=== PATIENT | male | born 1935 | race Caucasian/White ===

== ENCOUNTER 2020-04-29 11:12 | Outpatient (CLI) | payer OTHER, SELFPAY ==
--- NOTE | 2020-04-29 11:21 | XRR_ITS ---
PROCEDURE INFORMATION: Exam: XR Ribs, Bilateral Exam date and time: 04/29/2020 11:22 AM Age: 85 years old Clinical indication: Pain and injury or trauma; Fall; Initial encounter; Rib area, bilateral; Blunt trauma; Other: Rib pain; Injury date: 04/27/20 TECHNIQUE: Imaging protocol: XR of the bilateral ribs. Views: 3 views. COMPARISON: No relevant prior studies available. FINDINGS: Bones/joints: There are old, healed rib fractures bilaterally, but no acute rib fracture is identified. Lungs: No lung contusion. Pleural space: No pneumothorax, hemothorax, or pleural effusion. Heart/Mediastinum: The cardiac silhouette is not enlarged. The mediastinal contours are normal. Soft tissues: No acute soft tissue abnormality. XR/XR ribs 3V* [id number] IMPRESSION: No acute abnormality.
== END 2020-04-29 11:13 | disposition home or self-care (01) ==
LOC: RAD 11:16
PROVIDERS: PCP Nurse Practitioner Family; Visit Provider Nurse Practitioner Family
DX: S20.212A Contusion of left front wall of thorax, initial encounter (principal); S20.211A Contusion of right front wall of thorax, initial encounter; X58.XXXA Exposure to other specified factors, initial encounter; R07.81 Pleurodynia
CPT/HCPCS: 71110

== ENCOUNTER 2021-06-18 19:43 | Observation (INO) | payer MEDICARE, SELFPAY ==
[2021-06-18 19:44] VITALS: BP 141/77; PULSE 89; RESP 20; TEMP 37.7; O2SAT 93; BMI 24.3
[2021-06-18 20:10] VITALS: BP 137/67; PULSE 89; RESP 22
--- NOTE | 2021-06-18 20:38 | ECG_ITS ---
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 Measurements Intervals [place] Rate: 80 P: 52 LA: 140 QRS: 37 QRSD: 77 T: 30 QT: 403 QTc: 468 Interpretive Statements SINUS RHYTHM INTERPRETATION BASED ON A DEFAULT AGE OF 40 YEARS No previous ECG available for comparison Electronically Signed On 08-04-2021 17:27:58 CDT by Giulia Oliva M.D. [id number]
--- NOTE | 2021-06-18 20:38 | XRR_ITS ---
PROCEDURE INFORMATION: Exam: XR Chest Exam date and time: 06/18/2021 8:38 PM Age: 86 years old Clinical indication: Cough and shortness of breath TECHNIQUE: Imaging protocol: XR of the chest. Views: 1 view. COMPARISON: CR XR ribs BI 3V* [id number] 04/29/2020 11:33 AM FINDINGS: Lungs: Hyperinflated lungs. No consolidation. Pleural spaces: Unremarkable. No pleural effusion. No pneumothorax. Heart/Mediastinum: Unremarkable. No cardiomegaly. Bones/joints: Unremarkable. XR/XR chest 1V portable [id number] IMPRESSION: Hyperinflated lungs. No consolidation.
--- NOTE | 2021-06-18 20:39 | W.ED.WEAKNES ---
Documented by User: David Burks MD 06/18/21 22:02 HPI - Weakness General: Chief complaint: Weakness Stated complaint: GENERALIZED WEAKNESS/FALL Time Seen by Provider: 06/18/21 19:51 History of Present Illness: HPI Narrative: This patient is an 86-year-old male who presents to the emergency department with complaint of weakness and fatigue. Patient's was recently diagnosed with COVID-19. Patient's had increased weakness and fatigue over the past couple days. Patient denies any significant shortness of breath or cough or congestion. Denies fever. Will do medical evaluation treat as needed Complaint: generalized weakness Onset (ago): week(s) Duration: constant Location: generalized Severity: moderate Associated symptoms: Denies chest pain, chills, dysuria, fever(s), headache(s), nausea or vomiting Review of Systems General: Reports: 10 or more systems reviewed and unremarkable except in HPI and below Const: Reports: body aches and fatigue; Denies: fever(s) or chills Eyes: Denies: change in vision or blurry vision ENMT: Denies: throat pain, hoarseness or mouth pain Card: Denies: chest pain, palpitations, irregular heart rhythm, edema, swelling of feet/ankles or lightheadedness Resp: Denies: dyspnea, productive cough, non-productive cough, wheezing or pain on inspiration GI: Denies: abdominal pain, nausea or vomiting : Denies: flank pain, dysuria, urinary frequency, urinary urgency or urinary hesitancy Musc: Denies: neck pain, back pain, extremity pain, extremity swelling, joint pain, joint swelling, joint redness, joint warmth or limited range of motion Skin/Breast: Denies: rash, pruritus, erythema or skin tenderness Neuro: Denies: headache(s), numbness in extremities or weakness in extremities Psych: Denies: anxiety or depression Physical Exam Const: COMMON NORMALS: no acute distress, average body habitus, patient oriented x3, no limitations, healthy appearing, alert and well nourished HENMT: COMMON NORMALS: normocephalic, atraumatic, hearing grossly normal bilaterally, external ears normal, EAC's normal, TM's normal bilaterally, Normal external nose present, Normal nasal mucous membranes and turbinates present, moist oral mucous membranes, oropharynx normal, dentition normal and gingiva normal HEAD & SCALP: normocephalic and atraumatic NOSE: Normal external nose present and Normal nasal mucous membranes and turbinates present EXTERNAL EAR: Yes external ears normal EXTERNAL AUDITORY CANAL: EAC's normal TYMPANIC MEMBRANE: TM's normal bilaterally Neck/C-Spine: COMMON NORMALS: full ROM, no lymphadenopathy, supple, no meningeal signs, no JVD, Thyroid normal and No carotid bruits THYROID: Thyroid normal Chest: COMMONS NORMALS: normal inspection of the chest, normal palpation of entire chest wall, normal inspection of the breasts and normal palpation of the breasts Breast/axilla inspection: Yes normal inspection of the breasts BREAST/AXILLA PALPATION: Yes normal palpation of the breasts Resp: COMMON NORMALS: normal respiratory effort, No retractions, No use of accessory muscles, clear to auscultation bilaterally and percussion normal AUSCULTATION: clear to auscultation bilaterally PERCUSSION: percussion normal Cardio: COMMON NORMALS: no JVD, regular rate, regular rhythm, S1 normal heart sound present, S2 normal heart sound present, No gallops present (Cardio), No clicks present (Cardio), No murmurs present (Cardio), No rub (Cardio) and Peripheral pulses 2+ throughout RATE: regular rate RHYTHM: regular rhythm HEART SOUNDS: S1 normal heart sound present and S2 normal heart sound present PERIPHERAL PULSES: Peripheral pulses 2+ throughout GI: COMMON NORMALS: Normal to inspection, nondistended, normoactive bowel sounds present, Soft to palpation, non-tender, No hepatosplenomegaly present, no masses and no bruits PALPATION: Yes Soft to palpation and Yes No hepatosplenomegaly present : COMMON NORMALS: Yes no CVA tenderness BLADDER/KIDNEY EXAM: Yes no CVA tenderness Back/Pelvis: COMMON NORMALS: no CVA tenderness, thoracic and lumbar spine normal to inspection, no thoracic nor lumbar tenderness, thoraco-lumbar ROM normal and straight leg raise negative bilaterally Extremity: COMMON NORMALS: normal to inspection, full ROM, capillary refill normal, no joint enlargement, no clubbing, cyanosis or edema, no calf tenderness and no pedal edema Neuro: COMMON NORMALS: patient oriented x3 SENSORIUM/ORIENTATION: Yes alert MENINGEAL SIGNS: Yes no meningeal signs Course Vital Signs: Vital signs: Vital Signs Temperature 99.8 F H 06/18/21 19:44 Pulse Rate 86 08/19/21 21:25 Respiratory Rate 22 H 06/18/21 21:25 Blood Pressure 174/74 06/18/21 21:25 Pulse Oximetry 93 06/18/21 19:44 MDM - Weakness MDM Narrative: Medical decision making narrative: Patient stable pulse ox. Patient appears to have viral syndrome related to COVID-19. Patient be discharged home with COVID-19 instructions. Patient is to follow-up with primary care physician in 7 to 10 days. Continue with self quarantine. Take medications as instructed Medical Records: Attestation: I reviewed the patient's medical records. Lab Data: Attestation: I reviewed the patient's lab results. Labs: Lab Results 06/18/21 06/18/21 06/18/21 Range/Units 20:28 20:28 20:55 WBC 3.1 L (4.0-10.0) 10^3/ uL RBC 4.36 (4.1-5.3) 10^6/u L Hgb 12.8 (11.7-16.6) g/dL Hct 38.3 L (42.0-52.0) % MCV 87.8 (80-94) fl MCH 29.4 (28.0-34.0) pg MCHC 33.4 (30.0-36.0) g/dL RDW 13.8 (12.1-15.1) % Plt Count 147 (130-400) 10^3/c mm MPV 9.8 (7.4-10.4) fL Neut % (Auto) 49.6 % Lymph % (Auto) 23.9 % [place] % (Auto) 25.2 % Eos % (Auto) 0.3 % Baso % (Auto) 0.3 % Neut # (Auto) 1.52 L (1.8-7.7) 10^3/u L Lymph # (Auto) 0.7 L (0.8-4.8) 10^3/u L [place] # (Auto) 0.8 (0.2-0.9) 10^3/u L Eos # (Auto) 0.0 (0.0-0.8) 10^3/u L Baso # (Auto) 0.0 (0.0-0.1) 10^3/u L Nucleated RBC % (a uto) 0 % Nucleated RBCs # 0.0 /100WBC PT 14.00 (12.1-14.9) SECO NDS INR 1.05 (0.8-1.2) APTT 33.8 (23.9-36.7) SECO NDS D-Dimer 1.43 H (0-0.59) ug/mIFE U Sodium 133 L (136-145) mmol/L Potassium 3.7 (3.5-5.1) mmol/L Chloride 100 (98-107) mmol/L Carbon Dioxide 24 (22-29) mmol/L Anion Gap 12.7 (5-19) BUN 14 (8-23) mg/dL Creatinine 0.8 (0.7-1.2) mg/dL GFR Calculation Not Reportable Glucose 98 (65-115) mg/dL Calculated Osmolal ity 276 L (285-295) mOsm/k g Lactic Acid (0.5-2.2) mmol/L Calcium 8.6 (8.5-10.5) mg/dL Total Bilirubin 0.4 (0.15-1.2) mg/dL AST 18 (0-40) U/L ALT 9 (0-41) U/L Alkaline Phosphata se 94 (40-130) IU/L NT-Pro-B Natriuret Pep 309 (0-450) pg/mL Total Protein 7.0 (6.6-8.7) g/dL Albumin 4.1 (3.5-5.2) g/dL Globulin 2.9 (1.3-4.6) g/dL Urine Color (Yellow) Urine Appearance (CLEAR) Urine pH (5-7) Ur Specific Gravit y (1.005-1.030) Urine Protein (Negative) Urine Glucose (UA) (Normal) Urine Ketones (Negative) Urine Blood (Negative) Urine Nitrate (Negative) Urine Bilirubin (Negative) Urine Urobilinogen (Negative) mg/dL Ur Leukocyte Janny ase (Negative) Urine RBC (0-2) /hpf Urine WBC (0-5) /hpf Ur Squamous Epith Cells (0-5) /hpf Amorphous Sediment /hpf Urine Bacteria (NONE) /hpf Urine Mucus /hpf SARS-CoV-2 Ag (Rap id) (Negative) 06/18/21 06/18/21 06/18/21 Range/Units 20:55 20:55 21:12 WBC (4.0-10.0) 10^3/ uL RBC (4.1-5.3) 10^6/u L Hgb (11.7-16.6) g/dL Hct (42.0-52.0) % MCV (80-94) fl MCH (28.0-34.0) pg MCHC (30.0-36.0) g/dL RDW (12.1-15.1) % Plt Count (130-400) 10^3/c mm MPV (7.4-10.4) fL Neut % (Auto) % Lymph % (Auto) % [place] % (Auto) % Eos % (Auto) % Baso % (Auto) % Neut # (Auto) (1.8-7.7) 10^3/u L Lymph # (Auto) (0.8-4.8) 10^3/u L [place] # (Auto) (0.2-0.9) 10^3/u L Eos # (Auto) (0.0-0.8) 10^3/u L Baso # (Auto) (0.0-0.1) 10^3/u L Nucleated RBC % (a uto) % Nucleated RBCs # /100WBC PT (12.1-14.9) SECO NDS INR (0.8-1.2) APTT (23.9-36.7) SECO NDS D-Dimer (0-0.59) ug/mIFE U Sodium (136-145) mmol/L Potassium (3.5-5.1) mmol/L Chloride (98-107) mmol/L Carbon Dioxide (22-29) mmol/L Anion Gap (5-19) BUN (8-23) mg/dL Creatinine (0.7-1.2) mg/dL GFR Calculation Glucose (65-115) mg/dL Calculated Osmolal ity (285-295) mOsm/k g Lactic Acid 0.8 (0.5-2.2) mmol/L Calcium (8.5-10.5) mg/dL Total Bilirubin (0.15-1.2) mg/dL AST (0-40) U/L ALT (0-41) U/L Alkaline Phosphata se (40-130) IU/L NT-Pro-B Natriuret Pep (0-450) pg/mL Total Protein (6.6-8.7) g/dL Albumin (3.5-5.2) g/dL Globulin (1.3-4.6) g/dL Urine Color Yellow (Yellow) Urine Appearance Clear (CLEAR) Urine pH 5 (5-7) Ur Specific Gravit y 1.020 (1.005-1.030) Urine Protein Trace (Negative) Urine Glucose (UA) Norm (Normal) Urine Ketones Negative (Negative) Urine Blood 2+ H (Negative) Urine Nitrate Negative (Negative) Urine Bilirubin Neg (Negative) Urine Urobilinogen 1 H (Negative) mg/dL Ur Leukocyte Janny ase Negative (Negative) Urine RBC 5-10 H (0-2) /hpf Urine WBC 0-4 H (0-5) /hpf Ur Squamous Epith Cells 5-10 H (0-5) /hpf Amorphous Sediment Trace /hpf Urine Bacteria Trace (NONE) /hpf Urine Mucus 1+ /hpf SARS-CoV-2 Ag (Rap id) Positive H (Negative) Imaging Data^: CXR: Attestation: I personally reviewed and interpreted this imaging study as follows: Radiologist's impression: IMPRESSION: Hyperinflated lungs. No consolidation. EKG Data^: EKG 1: Attestation: I personally reviewed and interpreted this EKG as follows: EKG interpretation date: 06/18/21 EKG interpretation time: 20:49 Prior EKG tracings: not available for review Interpretation: Sinus rhythm heart rate 89 nonspecific EKG changes Discharge Plan Discharge Patient Disposition: Admitted As Inpatient Clinical Impression: COVID-19, Systemic viral illness Condition: Stable Coding Level of Care Code ED [employer] for Chg Fwd Exam Comprehensive Documented by User: Ida Wells MD 06/19/21 00:07 HPI - Weakness General: Chief complaint: Weakness Stated complaint: GENERALIZED WEAKNESS/FALL Time Seen by Provider: 06/18/21 19:51 Course Vital Signs: Vital signs: Vital Signs Temperature 99.8 F H 06/18/21 19:44 Pulse Rate 86 06/18/21 21:25 Respiratory Rate 22 H 06/18/21 21:25 Blood Pressure 174/74 06/18/21 21:25 Pulse Oximetry 93 06/18/21 19:44 MDM - Weakness MDM Narrative: Medical decision making narrative: Patient presents here with COVID-19 along with weakness. Patient's not able to ambulate here he is not stable for discharge at this time as he lives with his elderly . I spoke to hospitalist will lex for observation for his weakness. Lab Data: Labs: Lab Results 06/18/21 06/18/21 06/18/21 Range/Units 20:28 20:28 20:55 WBC 3.1 L (4.0-10.0) 10^3/ uL RBC 4.36 (4.1-5.3) 10^6/u L Hgb 12.8 (11.7-16.6) g/dL Hct 38.3 L (42.0-52.0) % MCV 87.8 (80-94) fl MCH 29.4 (28.0-34.0) pg MCHC 33.4 (30.0-36.0) g/dL RDW 13.8 (12.1-15.1) % Plt Count 147 (130-400) 10^3/c mm MPV 9.8 (7.4-10.4) fL Neut % (Auto) 49.6 % Lymph % (Auto) 23.9 % [place] % (Auto) 25.2 % Eos % (Auto) 0.3 % Baso % (Auto) 0.3 % Neut # (Auto) 1.52 L (1.8-7.7) 10^3/u L Lymph # (Auto) 0.7 L (0.8-4.8) 10^3/u L [place] # (Auto) 0.8 (0.2-0.9) 10^3/u L Eos # (Auto) 0.0 (0.0-0.8) 10^3/u L Baso # (Auto) 0.0 (0.0-0.1) 10^3/u L Nucleated RBC % (a uto) 0 % Nucleated RBCs # 0.0 /100WBC PT 14.00 (12.1-14.9) SECO NDS INR 1.05 (0.8-1.2) APTT 33.8 (23.9-36.7) SECO NDS D-Dimer 1.43 H (0-0.59) ug/mIFE U Sodium 133 L (136-145) mmol/L Potassium 3.7 (3.5-5.1) mmol/L Chloride 100 (98-107) mmol/L Carbon Dioxide 24 (22-29) mmol/L Anion Gap 12.7 (5-19) BUN 14 (8-23) mg/dL Creatinine 0.8 (0.7-1.2) mg/dL GFR Calculation Not Reportable Glucose 98 (65-115) mg/dL Calculated Osmolal ity 276 L (285-295) mOsm/k g Lactic Acid (0.5-2.2) mmol/L Calcium 8.6 (8.5-10.5) mg/dL Total Bilirubin 0.4 (0.15-1.2) mg/dL AST 18 (0-40) U/L ALT 9 (0-41) U/L Alkaline Phosphata se 94 (40-130) IU/L NT-Pro-B Natriuret Pep 309 (0-450) pg/mL Total Protein 7.0 (6.6-8.7) g/dL Albumin 4.1 (3.5-5.2) g/dL Globulin 2.9 (1.3-4.6) g/dL Urine Color (Yellow) Urine Appearance (CLEAR) Urine pH (5-7) Ur Specific Gravit y (1.005-1.030) Urine Protein (Negative) Urine Glucose (UA) (Normal) Urine Ketones (Negative) Urine Blood (Negative) Urine Nitrate (Negative) Urine Bilirubin (Negative) Urine Urobilinogen (Negative) mg/dL Ur Leukocyte Janny ase (Negative) Urine RBC (0-2) /hpf Urine WBC (0-5) /hpf Ur Squamous Epith Cells (0-5) /hpf Amorphous Sediment /hpf Urine Bacteria (NONE) /hpf Urine Mucus /hpf SARS-CoV-2 Ag (Rap id) (Negative) 06/18/21 06/18/21 06/18/21 Range/Units 20:55 20:55 21:12 WBC (4.0-10.0) 10^3/ uL RBC (4.1-5.3) 10^6/u L Hgb (11.7-16.6) g/dL Hct (42.0-52.0) % MCV (80-94) fl MCH (28.0-34.0) pg MCHC (30.0-36.0) g/dL RDW (12.1-15.1) % Plt Count (130-400) 10^3/c mm MPV (7.4-10.4) fL Neut % (Auto) % Lymph % (Auto) % [place] % (Auto) % Eos % (Auto) % Baso % (Auto) % Neut # (Auto) (1.8-7.7) 10^3/u L Lymph # (Auto) (0.8-4.8) 10^3/u L [place] # (Auto) (0.2-0.9) 10^3/u L Eos # (Auto) (0.0-0.8) 10^3/u L Baso # (Auto) (0.0-0.1) 10^3/u L Nucleated RBC % (a uto) % Nucleated RBCs # /100WBC PT (12.1-14.9) SECO NDS INR (0.8-1.2) APTT (23.9-36.7) SECO NDS D-Dimer (0-0.59) ug/mIFE U Sodium (136-145) mmol/L Potassium (3.5-5.1) mmol/L Chloride (98-107) mmol/L Carbon Dioxide (22-29) mmol/L Anion Gap (5-19) BUN (8-23) mg/dL Creatinine (0.7-1.2) mg/dL GFR Calculation Glucose (65-115) mg/dL Calculated Osmolal ity (285-295) mOsm/k g Lactic Acid 0.8 (0.5-2.2) mmol/L Calcium (8.5-10.5) mg/dL Total Bilirubin (0.15-1.2) mg/dL AST (0-40) U/L ALT (0-41) U/L Alkaline Phosphata se (40-130) IU/L NT-Pro-B Natriuret Pep (0-450) pg/mL Total Protein (6.6-8.7) g/dL Albumin (3.5-5.2) g/dL Globulin (1.3-4.6) g/dL Urine Color Yellow (Yellow) Urine Appearance Clear (CLEAR) Urine pH 5 (5-7) Ur Specific Gravit y 1.020 (1.005-1.030) Urine Protein Trace (Negative) Urine Glucose (UA) Norm (Normal) Urine Ketones Negative (Negative) Urine Blood 2+ H (Negative) Urine Nitrate Negative (Negative) Urine Bilirubin Neg (Negative) Urine Urobilinogen 1 H (Negative) mg/dL Ur Leukocyte Janny ase Negative (Negative) Urine RBC 5-10 H (0-2) /hpf Urine WBC 0-4 H (0-5) /hpf Ur Squamous Epith Cells 5-10 H (0-5) /hpf Amorphous Sediment Trace /hpf Urine Bacteria Trace (NONE) /hpf Urine Mucus 1+ /hpf SARS-CoV-2 Ag (Rap id) Positive H (Negative) Imaging Data^: CT Chest: Attestation: I personally reviewed and interpreted this imaging study as follows: Radiologist's impression: [address] [facility] [place] [address] CT Scan Report Signed Patient: Pawel Baker Unit #: [id number] : 1935 Age/Sex: 86 / M ADM Date: 06/18/21 Loc: ER Room/Bed: Attending Dr: Ordering Provider/Ordering MD: David Burks MD Date of Service: 06/18/21 Procedure(s): CT angio chest PE protcl [id number] Accession Number(s): [id number] Report Number: [id number] PROCEDURE INFORMATION: Exam: CTA Chest With Contrast Exam date and time: 06/18/2021 10:01 PM Age: 86 years old Clinical indication: Shortness of breath; Patient HX: Sob/elevated ddimer. Covid +; Additional info: SOB with elevated ddimer TECHNIQUE: Imaging protocol: Computed tomographic angiography of the chest with contrast. 3D rendering (Not supervised by radiologist): MIP and/or 3D reconstructed images were created by the technologist. Radiation optimization: All CT scans at this facility use at least one of these dose optimization techniques: automated exposure control; mA and/or kV adjustment per patient size (includes targeted exams where dose is matched to clinical indication); or iterative reconstruction. Contrast material: OMNI 350; Contrast volume: 175 ml; Contrast route: INTRAVENOUS (IV); COMPARISON: CR (CHEST, ) 06/18/2021 8:39 PM RADIATION DOSE METRICS: Total DLP (mGy-cm): 1567.54 FINDINGS: Pulmonary arteries: Normal. No pulmonary emboli. Aorta: Unremarkable. No aortic aneurysm. No aortic dissection. Lungs: Patchy bilateral dependent atelectasis versus infiltrate. Emphysematous changes. Pleural spaces: Unremarkable. No pneumothorax. No pleural effusion. Heart: Coronary artery atherosclerotic calcifications. Lymph nodes: Unremarkable. No enlarged lymph nodes. Bones/joints: Unremarkable. No acute fracture. Soft tissues: Unremarkable. CT/CT angio chest PE protcl [id number] IMPRESSION: 1. Negative for pulmonary embolus 2. Patchy bilateral dependent atelectasis versus infiltrate. 3. Emphysematous changes. 4. Coronary artery atherosclerotic calcifications. Radiation Dose CTDIVOL = (mGy): DLP = 1567.54 (mGy-cm) Dictated By: Dragan Conteh MD Signed By: Dragan Conteh MD Signed Date/Time: 06/18/212336 DD/ 34 Discharge Plan Discharge Patient Disposition: Admitted As Inpatient Clinical Impression: COVID-19, Systemic viral illness Condition: Stable Coding Level of Care Code ED [employer] for Chg Fwd Exam Comprehensive
[2021-06-18 20:46] LABS: Basophils % 0.3 %; Eosinophils % 0.3 %; Hematocrit 38.3 % (42.0-52.0); Hemoglobin 12.8 g/dL (11.7-16.6); Lymphocytes # 0.7 10^3/uL (0.8-4.8); Lymphocytes % 23.9 %; Mean Corpuscular HGB Conc 33.4 g/dL (30.0-36.0); Mean Corpuscular Hemoglobin 29.4 pg (28.0-34.0); Mean Corpuscular Volume 87.8 fl (80-94); Mean Platelet Volume 9.8 fL (7.4-10.4); Monocytes # 0.8 10^3/uL (0.2-0.9); Monocytes % 25.2 %; Neutrophils # 1.52 10^3/uL (1.8-7.7); Neutrophils % 49.6 %; Nucleated Red Blood Cells % 0 %; Platelet Count 147 10^3/cmm (130-400); Red Blood Count 4.36 10^6/uL (4.1-5.3); Red Cell Distribution Width 13.8 % (12.1-15.1); White Blood Count 3.1 10^3/uL (4.0-10.0)
[2021-06-18] MEDS: dexamethasone 10 mg/mL INJ IV (20:51)
[2021-06-18] MEDS: sodium chloride 0.9% 1,000 ML 999 ML IV (20:51)
[2021-06-18 21:20] LABS: Alanine Aminotransferase 9 U/L (0-41); Albumin Level 4.1 g/dL (3.5-5.2); Alkaline Phosphatase 94 IU/L (40-130); Anion Gap 12.7 (5-19); Aspartate Amino Transferase 18 U/L (0-40); Blood Urea Nitrogen 14 mg/dL (8-23); Calcium 8.6 mg/dL (8.5-10.5); Carbon Dioxide 24 mmol/L (22-29); Chloride 100 mmol/L (98-107); Globulin 2.9 g/dL (1.3-4.6); Glucose 98 mg/dL (65-115); NT Pro B Type Natriuretic Pept 309 pg/mL (0-450); Osmolality Calculated 276 mOsm/kg (285-295); Potassium 3.7 mmol/L (3.5-5.1); Sodium 133 mmol/L (136-145); Total Bilirubin 0.4 mg/dL (0.15-1.2)
--- NOTE | 2021-06-18 21:23 | PC.NURSE ---
ua collected with urinal and taken to lab. pt clothing wet from incontinence of urine. underwear and jeans removed and brief provided. blue pad placed under patient. pt states he does not get up and walk at home. pt unkempt and clothing dirty and disheveled.
[2021-06-18 21:25] VITALS: BP 174/74; PULSE 86; RESP 22
[2021-06-18 21:29] LABS: Lactic Sepsis W/Reflex 0.8 mmol/L (0.5-2.2)
--- NOTE | 2021-06-18 21:40 | PC.NURSE ---
pt daughter calling for update. Shira [phone]
[2021-06-18 21:47] LABS: SARS Covid-2 Antigen Positive (Negative)
[2021-06-18 21:56] LABS: INR 1.05 (0.8-1.2)
[2021-06-18 21:58] LABS: Partial Thromboplastin Time 33.8 SECONDS (23.9-36.7)
[2021-06-18 22:00] LABS: Urine Appearance Clear (CLEAR); Urine Color Yellow (Yellow)
[2021-06-18 22:00] LABS: D Dimer 1.43 ug/mIFEU (0-0.59)
[2021-06-18 22:01] LABS: Bilirubin Urine Neg (Negative); Blood Urine 2+ (Negative); Glucose Urine UA Norm (Normal); Ketones Urine Negative (Negative); Nitrate Urine Negative (Negative); Protein Urine Trace (Negative); Urobilinogen Urine 1 mg/dL (Negative); pH Urine 5 (5-7)
--- NOTE | 2021-06-18 22:01 | CTR_ITS ---
PROCEDURE INFORMATION: Exam: CTA Chest With Contrast Exam date and time: 06/18/2021 10:01 PM Age: 86 years old Clinical indication: Shortness of breath; Patient HX: Sob/elevated ddimer. Covid +; Additional info: SOB with elevated ddimer TECHNIQUE: Imaging protocol: Computed tomographic angiography of the chest with contrast. 3D rendering (Not supervised by radiologist): MIP and/or 3D reconstructed images were created by the technologist. Radiation optimization: All CT scans at this facility use at least one of these dose optimization techniques: automated exposure control; mA and/or kV adjustment per patient size (includes targeted exams where dose is matched to clinical indication); or iterative reconstruction. Contrast material: OMNI 350; Contrast volume: 175 ml; Contrast route: INTRAVENOUS (IV); COMPARISON: CR (CHEST, ) 06/18/2021 8:39 PM RADIATION DOSE METRICS: Total DLP (mGy-cm): 1567.54 FINDINGS: Pulmonary arteries: Normal. No pulmonary emboli. Aorta: Unremarkable. No aortic aneurysm. No aortic dissection. Lungs: Patchy bilateral dependent atelectasis versus infiltrate. Emphysematous changes. Pleural spaces: Unremarkable. No pneumothorax. No pleural effusion. Heart: Coronary artery atherosclerotic calcifications. Lymph nodes: Unremarkable. No enlarged lymph nodes. Bones/joints: Unremarkable. No acute fracture. Soft tissues: Unremarkable. CT/CT angio chest PE protcl [id number] IMPRESSION: 1. Negative for pulmonary embolus 2. Patchy bilateral dependent atelectasis versus infiltrate. 3. Emphysematous changes. 4. Coronary artery atherosclerotic calcifications. Radiation Dose CTDIVOL = (mGy): DLP = 1567.54 (mGy-cm)
[2021-06-18 22:04] LABS: Add Urine Microscopic? YES; Leukocyte Esterase Urine Negative (Negative)
[2021-06-18 22:05] LABS: Bacteria Urine TRACE /hpf; Mucus Urine 1+ /hpf; WBC Urine 0-4 /hpf (0-5)
[2021-06-18 22:06] LABS: Add Urine Culture? No; Amorphous Sediment Urine TRACE /hpf
--- NOTE | 2021-06-18 22:27 | CTR_ITS ---
PROCEDURE INFORMATION: Exam: CT Head Without Contrast Exam date and time: 06/18/2021 10:27 PM Age: 86 years old Clinical indication: Patient HX: General weakness. Lethargy. ; Additional info: Weak TECHNIQUE: Imaging protocol: Computed tomography of the head without contrast. Radiation optimization: All CT scans at this facility use at least one of these dose optimization techniques: automated exposure control; mA and/or kV adjustment per patient size (includes targeted exams where dose is matched to clinical indication); or iterative reconstruction. COMPARISON: No relevant prior studies available. RADIATION DOSE METRICS: Total DLP (mGy-cm): 878.72 FINDINGS: Brain: There is mild parenchymal atrophy and chronic small vessel disease. No acute infarct or hemorrhage. Cerebral ventricles: No ventriculomegaly. Paranasal sinuses: Paranasal sinuses are clear. No air-fluid level. Mastoid air cells: Visualized mastoid air cells are clear. Bones/joints: Unremarkable. No acute fracture. Soft tissues: Unremarkable. CT/CT head wo con* [id number] IMPRESSION: 1. No acute infarct or hemorrhage. 2. Mild parenchymal atrophy and chronic small vessel disease. Radiation Dose CTDIVOL = (mGy): DLP = 878.72 (mGy-cm)
--- NOTE | 2021-06-18 22:33 | PC.NURSE ---
Pt found on floor by peer. Pt had pulled IV out of right arm. Monitors were also removed. Pt denies pain or injury. Head and neck nontender to palpation. Pt moved to sitting position with max assist 2 personnel, then moved to standing position with max assist from 3 peronnel. Pt moved up to HOB and side rails up. Monitors placed. Physician notified of incident and to bedside to assess pt. 2 small 1 cm lac to left upper distal extremity. wounds cleansed and no active bleeding noted. pt lying in bed with eyes closed, side rails up x2, bed in low position, brake applied, call light in reach, curtain open for direct visualization of patient.
[2021-06-18] MEDS: iohexol 350 mg/mL 100 mL Btl IV ×2 (22:59→23:01)
--- NOTE | 2021-06-18 23:10 | PC.NURSE ---
pt resting with eyes closed. appears to be sleeping. spo2 88-92% on RA. 1 lpm NC applied.
--- NOTE | 2021-06-18 23:37 | PC.NURSE ---
pt resting at this time with eyes closed, appears to be sleeping. will reassess need for tylenol if pt awakens.
[2021-06-19] VITALS (14 sets, daily range): BP systolic 100–151; BP diastolic 61–87; PULSE 56–92; RESP 16–20; TEMP 36.4–37.7; O2SAT 91–96; BMI 23.8
--- NOTE | 2021-06-19 00:09 | PC.NURSE ---
Daughter, Shira, called for further update. advised lab results, radiology results, and current location of patient. advised that she will call back in the morning for another update.
[2021-06-19 00:23] LABS: Creatine Phosphokinase 71 U/L (39-308)
--- NOTE | 2021-06-19 01:07 | PC.NURSE ---
report called to Gaby YANG
--- NOTE | 2021-06-19 01:08 | PC.NURSE ---
Admit Note Patient admitted to [MED/SURG ROOM 261] from [ER] via [STRECHER]. Covering service notified. Patient presents with [AMS/WEAKNESS]. Orders reviewed & will continue to monitor. Patient and/or direct marketing representative oriented to environment, equipment, and informed of the following as found in the admission booklet: patient rights & responsibilities, visitor policy, hand and respiratory hygiene practice. Other education includes: [BED ALARM/CONTACT-DROPLET PRECAUTIONS]. Patient and/or direct marketing representative NEEDS FURTHER TEACHINGS, NOT ABLE TO COMPLETELY ORIENT PT AT THIS TIME. WILL CONTINUE TO REORIENT THROUGHOUT THE SHIFT.
--- NOTE | 2021-06-19 03:04 | P.HP_ITS ---
Providers/Chief Complaint Admitting Physician: Idalia Cunha MD Primary Care Provider: Kaylynn Urbano Chief Complaint: FALL History of Present Illness Pawel Baker is a 86 year old male who presented to the emergency room after a fall. He has had progressively worsening weakness the last couple of days. Patient's was recently diagnosed with Covid. While he has not had r espiratory symptoms per se he has been much more tired. No report of any fevers. He has gotten so weak that it is hard for him to get around and do much. He is wanting to stay in bed. In the emergency room he had a temperature of 99.8, oxygen saturations 93% on room air. Originally plan was for him to be discharged home with Covid precautions. Short time later he was found on the floor. Is not known what happened. He denied any injury. CT of the head did not show any acute abnormalities although there was some mild parenchymal atrophy and chronic small vessel disease noted. CTA of the chest along with chest x-ray showed findings consistent with Covid. Covid rapid antigen was positive. Given the severity of his weakness he is being admitted for further care. He did not receive a Covid vaccine. History is obtained from Mr. Baker. I'm not sure of the details of his fall at home as he cannot fully recall. He does knows that he has been very weak and tired. Review of Systems Const: Reports: fatigue and change in sleep pattern; Denies: fever(s) or chills Eyes: Denies: change in vision ENMT: Denies: throat pain, nasal congestion or other (Loss of taste or smell) Card: Denies: chest pain, palpitations or edema Resp: Denies: dyspnea, productive cough or non-productive cough GI: Denies: abdominal pain, nausea, vomiting, diarrhea or constipation : Reports: urinary hesitancy Musc: Reports: extremity pain and muscle weakness; Denies: joint swelling, joint redness or muscle cramps Skin/Breast: Denies: rash or sores Neuro: Reports: weakness in extremities and difficulty walking; Denies: headache(s) or numbness in extremities Psych: Denies: anxiety or depression Pedro/Lymph: Denies: easy bruising or easy bleeding Medications/Allergies Home Medications Medication Instructions Recorded Confirmed Last Taken Type levothyroxine 75 mcg PO DAILY 06/19/21 06/19/21 Unknown History tamsulosin 0.4 mg PO BID 06/19/21 06/19/21 Unknown History trazodone 50 - 150 mg PO BEDTIME 06/19/21 06/19/21 Unknown History Allergies Allergy/AdvReac Type Severity Reaction Status Date / Time No Known Allergies Allergy Verified 06/18/21 19:45 PFSH Acute PFSH: Medical History (Updated 06/19/21 @ 09:07 by Idalia Cunha MD) History of skin cancer Hypothyroidism Prostatic hypertrophy Surgical History (Updated 06/19/21 @ 06:49 by Idalia Cunha MD) History of cataract surgery History of skin surgery on penis for skin cancer Family History (Updated 06/19/21 @ 06:50 by Idalia Cunha MD) Denies family history of CAD (coronary artery disease) Social History (Updated 06/19/21 @ 06:51 by Idalia Cunha MD) Smoking and tobacco status: current every day smoker smokeless tobacco Smoke less tobacco user: chewing tobacco Smokeless tobacco details: daily Alcohol intake: current Alcohol intake frequency: holidays/special occasions only Alcohol type: beer Substance/Drug Use: never Household members: spouse Marital status: Vitals/I&O/Wt Last Vital Signs Temp 97.7 F 06/19/21 02:18 Pulse 61 06/19/21 02:18 Resp 16 06/19/21 02:18 BP 100/61 06/19/21 02:18 Pulse Ox 92 06/19/21 02:18 06/18/21 06/18/21 06/19/21 14:59 22:59 06:59 Intake Total 1000 / 1000 Balance 1000 / 1000 Weight last 48 hrs Weight 86.381 kg Weight 88.451 kg Physical Exam Const: OTHER: Sleepy but easily arousable, oriented x2, cooperative HENMT: OTHER: Very mild bitemporal wasting, arcus senilis noted bilaterally, extraocular movements are intact, oropharynx is dry Neck/C-Spine: OTHER: Supple Resp: OTHER: Clear to auscultation bilaterally, no rales, rhonchi or wheezes noted, no accessory muscle use noted Cardio: OTHER: Regular rate and rhythm, no murmurs gallops or rubs. Pulses equal throughout GI: OTHER: Abdomen soft, nontender, nondistended with positive bowel sounds Extremity: OTHER: No cyanosis, clubbing or edema, no acute synovitis Neuro: OTHER: Face symmetric, speech clear, moves all extremities Psych: OTHER: Flat affect, slow to respond but answers to questions were appropriate when he was able to provide the information Skin: OTHER: Patient with some skin tears to the left hand and wrist area, covered with Tegaderm. He has some bruising to the top of the left foot at the base of toes 2 3 and 4. On the right lateral leg near the knee he has some abrasions almost like carpet burn. Mild bruising to extensor surfaces. Data : 06/18/21 20:28 06/18/21 20: Other Labs: Laboratory Results WBC 3.1 10^3/uL (4.0-10.0) L 06/18/21 20: RBC 4.36 10^6/uL (4.1-5.3) 06/18/21 20: Hgb 12.8 g/dL (11.7-16.6) 06/18/21 20: Hct 38.3 % (42.0-52.0) L 06/18/21 20: MCV 87.8 fl (80-94) 06/18/21 20: MCH 29.4 pg (28.0-34.0) 06/18/21 20: MCHC 33.4 g/dL (30.0-36.0) 06/18/21 20: RDW 13.8 % (12.1-15.1) 06/18/21 20: Plt Count 147 10^3/cmm (130-400) 06/18/21 20: MPV 9.8 fL (7.4-10.4) 06/18/21 20: Neut % (Auto) 49.6 % 06/18/21 20: Lymph % (Auto) 23.9 % 06/18/21 20: [place] % (Auto) 25.2 % 06/18/21 20: Eos % (Auto) 0.3 % 06/18/21 20: Baso % (Auto) 0.3 % 06/18/21 20: Neut # (Auto) 1.52 10^3/uL (1.8-7.7) L 06/18/21 20:28 Lymph # (Auto) 0.7 10^3/uL (0.8-4.8) L 06/18/21 20:28 [place] # (Auto) 0.8 10^3/uL (0.2-0.9) 06/18/21 20:28 Eos # (Auto) 0.0 10^3/uL (0.0-0.8) 06/18/21 20:28 Baso # (Auto) 0.0 10^3/uL (0.0-0.1) 06/18/21 20:28 Nucleated RBC % (auto) 0 % 06/18/21 20:28 Nucleated RBCs # 0.0 /100WBC 06/18/21 20:28 PT 14.00 SECONDS (12.1-14.9) 06/18/21 20:55 INR 1.05 (0.8-1.2) 06/18/21 20:55 APTT 33.8 SECONDS (23.9-36.7) 06/18/21 20:55 D-Dimer 1.43 ug/mIFEU (0-0.59) H 06/18/21 20:55 Sodium 133 mmol/L (136-145) L 06/18/21 20:28 Potassium 3.7 mmol/L (3.5-5.1) 06/18/21 20:28 Chloride 100 mmol/L (98-107) 06/18/21 20:28 Carbon Dioxide 24 mmol/L (22-29) 06/18/21 20:28 Anion Gap 12.7 (5-19) 06/18/21 20:28 BUN 14 mg/dL (8-23) 06/18/21 20:28 Creatinine 0.8 mg/dL (0.7-1.2) 06/18/21 20:28 GFR Calculation Not Reportable 06/18/21 20:28 Glucose 98 mg/dL (65-115) 06/18/21 20:28 Calculated Osmolality 276 mOsm/kg (285-295) L 06/18/21 20:28 Lactic Acid 0.8 mmol/L (0.5-2.2) 06/18/21 20:55 Calcium 8.6 mg/dL (8.5-10.5) 06/18/21 20:28 Total Bilirubin 0.4 mg/dL (0.15-1.2) 06/18/21 20:28 AST 18 U/L (0-40) 06/18/21 20:28 ALT 9 U/L (0-41) 06/18/21 20:28 Alkaline Phosphatase 94 IU/L (40-130) 06/18/21 20:28 Creatine Kinase 71 U/L (39-308) 06/18/21 20:28 NT-Pro-B Natriuret Pep 309 pg/mL (0-450) 06/18/21 20:28 Total Protein 7.0 g/dL (6.6-8.7) 06/18/21 20:28 Albumin 4.1 g/dL (3.5-5.2) 06/18/21 20:28 Globulin 2.9 g/dL (1.3-4.6) 06/18/21 20:28 Urine Color Yellow (Yellow) 06/18/21 21:12 Urine Appearance Clear (CLEAR) 06/18/21 21:12 Urine pH 5 (5-7) 06/18/21 21:12 Ur Specific [place] 1.020 (1.005-1.030) 06/18/21 21:12 Urine Protein Trace (Negative) 06/18/21 21:12 Urine Glucose (UA) Norm (Normal) 06/18/21 21:12 Urine Ketones Negative (Negative) 06/18/21 21:12 Urine Blood 2+ (Negative) H 06/18/21 21:12 Urine Nitrate Negative (Negative) 06/18/21 21:12 Urine Bilirubin Neg (Negative) 06/18/21 21:12 Urine Urobilinogen 1 mg/dL (Negative) H 06/18/21 21:12 Ur Leukocyte Esterase Negative (Negative) 06/18/21 21:12 Urine RBC 5-10 /hpf (0-2) H 06/18/21 21:12 Urine WBC 0-4 /hpf (0-5) H 06/18/21 21:12 Ur Squamous Epith Cells 5-10 /hpf (0-5) H 06/18/21 21:12 Amorphous Sediment Trace /hpf 06/18/21 21:12 Urine Bacteria Trace /hpf (NONE) 06/18/21 21:12 Urine Mucus 1+ /hpf 06/18/21 21:12 SARS-CoV-2 Ag (Rapid) Positive (Negative) H 06/18/21 20:55 Impressions Chest X-Ray 06/18/21 20:38 IMPRESSION: Hyperinflated lungs. No consolidation. Chest CTA 06/18/21 22:01 IMPRESSION: 1. Negative for pulmonary embolus 2. Patchy bilateral dependent atelectasis versus infiltrate. 3. Emphysematous changes. 4. Coronary artery atherosclerotic calcifications. Radiation Dose CTDIVOL = (mGy): DLP = 1567.54 (mGy-cm) Head CT 06/18/21 22:27 IMPRESSION: 1. No acute infarct or hemorrhage. 2. Mild parenchymal atrophy and chronic small vessel disease. Radiation Dose CTDIVOL = (mGy): DLP = 878.72 (mGy-cm) A&P Assessment and plan (1) Weakness generalized: Currently unable to attend to his own ADLs when he normally evidently can Status: Acute (2) COVID-19: Has leukopenia with lymphocytopenia, elevated D-dimer without evidence of PE on CTA of the chest, weakness as described Status: Acute (3) COVID-19 vaccine dose not administered: Status: Acute (4) Hypothyroidism: Chronically on levothyroxine Status: Chronic Qualifiers: Hypothyroidism type: unspecified Qualified Code(s): E03.9 - Hypothyroidism, unspecified (5) Prostatic hypertrophy: Chronically on alpha-raphael Status: Chronic Additional A&P Information Observation admission Initiate dexamethasone and remdesivir Oxygen as needed Inhalers as needed Check some additional inflammatory markers including CK level CTA of the chest negative for PE and only minimal opacities versus atelectasis noted Blood cultures are pending Check TSH Continue home levothyroxine Serial neuro exams Monitor skin tears and bruises for need to intervene further Received a liter of fluids in the emergency room CT of the head was completed in the ER Continue home Flomax at half usual dose Depending on clinical course, consider PT evaluation Lovenox for DVT prophylaxis along with SCDs PPI for GI prophylaxis Continue home trazodone at lower range dose as needed Received a liter of fluids in the emergency room, hold further fluids currently until repeat labs in the morning Supportive care otherwise Diagnosis of Covid and plans, including treatment noted above were discussed with patient. He was given an opportunity to ask questions Full code Attestations Medical Necessity Statement*: Anticipated stay less than 2 midnights/observation stay in a gentleman who is positive for COVID-19 but currently not requiring oxygen and or currently with clear markers of rapidly p rogressive disease evident. He is however so weak that he is not able to attend to his activities of daily living. We will see how he does with treatment as outlined above. Coding Level of Care Code Acute [facility] Diagnoses Weakness generalized R53.1 COVID-19 U07.1 COVID-19 vaccine dose not administered Z28.9 Hypothyroidism E03.9 Hypothyroidism type: unspecified Prostatic hypertrophy N40.0
--- NOTE | 2021-06-19 03:06 | PC.NURSE ---
I reported low pluse 56 to nurse
--- NOTE | 2021-06-19 06:49 | PC.NURSE ---
PT DAUGHTER CALLED FOR UPDATE HENRI WALKER. SHE WAS UNABLE TO GIVE ME ANY INFORMATION ON PT'S MEDS,PHARM, OR ALLERGIES, BUT COULD TELL ME THAT HE HAS NOT HAD HIS COVID VACCINE. SHE GAVE ME PT'S 'S PHONE NUMBER THAT WAS NOT ON THE ACCOUNT [phone]. THE NUMBER ON THE ACCOUNT IS THE PT'S CELL NUMBER AND THAT PHONE IS AT HOME.
[2021-06-19] MEDS: albuterol 8 gm MDI 2 PUFF INHALATION (10:16)
[2021-06-19] MEDS: enoxaparin 40 mg/0.4 mL Syringe SUBCUT (10:18)
[2021-06-19] MEDS: zinc gluconate 50 mg Tablet PO (10:18)
[2021-06-19] MEDS: levothyroxine 75 mcg Tablet PO (10:18)
[2021-06-19] MEDS: cholecalciferol (vitamin D3) 1,000 unit Tablet 2000 UNIT PO (10:18)
[2021-06-19] MEDS: tamsulosin 0.4 mg Capsule PO (10:19)
[2021-06-19] MEDS: pantoprazole DR 40 mg Tablet PO (10:19)
[2021-06-19] MEDS: ascorbic acid 500 mg Tablet 1000 MG PO (10:22)
--- NOTE | 2021-06-19 10:43 | PM.DCS ---
Discharge Providers Date of Admission: 06/19/21 00:06 Date of Discharge: June 19, 2021 Attending Provider at Admission: Idalia Cunha MD Attending Provider at Discharge: Omar Banegas Primary Care Provider: Kaylynn Urbano Diagnoses at Discharge Discharge Diagnosis (1) Weakness generalized: Status: Acute (2) COVID-19: Status: Acute (3) COVID-19 vaccine dose not administered: Status: Acute (4) Hypothyroidism: Status: Chronic Qualifiers: Hypothyroidism type: unspecified Qualified Code(s): E03.9 - Hypothyroidism, unspecified (5) Prostatic hypertrophy: Status: Chronic Reason for Visit Reason for Visit: FALL Hospital Course Hospital Course Pleasant 86-year-old gentleman with history of hypothyroidism, BPH was placed in observation due to generalized weakness, found positive for COVID-19 with moderate illness, so far not requiring any oxygen. CTA chest showed findings consistent with COVID-19 pneumonia, no PE. He tells me he had received the first of the Covid vaccination series several days back. He was monitored overnight. He was initiated on Decadron, remdesivir. He is currently feeling well. He reports he is feeling stronger. He has ambulated in the room. Speaks in full sentences on room air. He states he would like to go home. Discussed with him we would like to do a home O2 evaluation before he goes. Discussed also to be safe and seek medical attention immediately in case of progression of symptoms, worsening dyspnea, severity of fatigue, any presyncopal chest pain or other concerning symptoms. Discussed with him to obtain a pulse oximeter and monitor saturations at home. He states he intends to do so. Discussed with him also isolation as he can currently transmit the virus. Once he recovers, please consider referral for pulmonary function testing given emphysematous changes noted incidentally on CT angiogram of the chest. Physical Exam Const: COMMON NORMALS: no acute distress and patient oriented x3 HENMT: COMMON NORMALS: oropharynx normal Neck/C-Spine: COMMON NORMALS: no JVD Resp: COMMON NORMALS: normal respiratory effort and clear to auscultation bilaterally AUSCULTATION: clear to auscultation bilaterally Cardio: COMMON NORMALS: no JVD, regular rhythm, S1 normal heart sound present, S2 normal heart sound present and No murmurs present (Cardio) RHYTHM: regular rhythm HEART SOUNDS: S1 normal heart sound present and S2 normal heart sound present GI: COMMON NORMALS: Normal to inspection, nondistended, normoactive bowel sounds present, Soft to palpation and non-tender PALPATION: Yes Soft to palpation Extremity: COMMON NORMALS: no joint enlargement and no pedal edema Neuro: COMMON NORMALS: patient oriented x3 and moves all extremities Skin: COMMON NORMALS: no rashes or lesions noted GENERAL SKIN EXAM: no rashes or lesions noted Discharge Data Data Completed and Pending: Completed Studies During Hospitalization Category Date Time Status CT angio chest PE protcl [id number] Stat Cat Scan 06/18/21 22:[address] head wo con* 7 0450 Urgent Cat Scan 06/18/21 22:27 Completed XR chest 1V sophia ble [id number] Stat Exams 06/18/21 20:38 Completed Pending at discharge Category Date Time Status Basic Metabolic P letha Routine Lab 06/19/21 06:38 Ordered Blood Culture Rou kelsey Lab 06/19/21 06:38 Ordered C Reactive Protei n Routine Lab 06/19/21 06:38 Ordered CBC Auto Diff [Co mplete Blood Count w/Auto] Routine Lab 06/19/21 08:48 Ordered Complete Blood Co unt w/Auto AM LABS Lab 06/20/21 04:00 Ordered Complete Blood Co unt w/Auto Routine Lab 06/19/21 06:38 Ordered Comprehensive Met abolic Panel AM LA BS Lab 06/20/21 04:00 Ordered Comprehensive Met abolic Panel Routi ne Lab 06/19/21 08:48 Ordered Creatine Phosphok inase Routine Lab 06/19/21 06:38 Ordered Ferritin Routine Lab 06/19/21 06:38 Ordered Fibrinogen Routin e Lab 06/19/21 06:38 Ordered Lactate Dehydroge nase Routine Lab 06/19/21 06:38 Ordered Magnesium Routine Lab 06/19/21 06:38 Ordered NT Pro B Type Lorraine riuretic Pept Rout ine Lab 06/19/21 06:38 Ordered Phosphorus Routin e Lab 06/19/21 06:38 Ordered Procalcitonin Rou kelsey Lab 06/19/21 06:38 Ordered Thyroid Stimulati ng Hormone Routine Lab 06/19/21 06:38 Ordered Labs from last 24 hours 06/18/21 06/18/21 06/18/21 21:12 20:55 20:55 WBC RBC Hgb Hct MCV MCH MCHC RDW Plt Count MPV Neut % (Auto) Lymph % (Auto) [place] % (Auto) Eos % (Auto) Baso % (Auto) Neut # (Auto) Lymph # (Auto) [place] # (Auto) Eos # (Auto) Baso # (Auto) Nucleated RBC % (a uto) Nucleated RBCs # PT INR APTT D-Dimer Sodium Potassium Chloride Carbon Dioxide Anion Gap BUN Creatinine GFR Calculation Glucose Calculated Osmolal ity Lactic Acid 0.8 Calcium Total Bilirubin AST ALT Alkaline Phosphata se Creatine Kinase NT-Pro-B Natriuret Pep Total Protein Albumin Globulin Urine Color Yellow Urine Appearance Clear Urine pH 5 Ur Specific [place] y 1.020 Urine Protein Trace Urine Glucose (UA) Norm Urine Ketones Negative Urine Blood 2+ H Urine Nitrate Negative Urine Bilirubin Neg Urine Urobilinogen 1 H Ur Leukocyte Janny ase Negative Urine RBC 5-10 H Urine WBC 0-4 H Ur Squamous Epith Cells 5-10 H Amorphous Sediment Trace Urine Bacteria Trace Urine Mucus 1+ SARS-CoV-2 Ag (Rap id) Positive H 06/18/21 06/18/21 06/18/21 20:55 20:28 20:28 WBC RBC Hgb Hct MCV MCH MCHC RDW Plt Count MPV Neut % (Auto) Lymph % (Auto) [place] % (Auto) Eos % (Auto) Baso % (Auto) Neut # (Auto) Lymph # (Auto) [place] # (Auto) Eos # (Auto) Baso # (Auto) Nucleated RBC % (a uto) Nucleated RBCs # PT 14.00 INR 1.05 APTT 33.8 D-Dimer 1.43 H Sodium 133 L Potassium 3.7 Chloride 100 Carbon Dioxide 24 Anion Gap 12.7 BUN 14 Creatinine 0.8 GFR Calculation Not Reportable Glucose 98 Calculated Osmolal ity 276 L Lactic Acid Calcium 8.6 Total Bilirubin 0.4 AST 18 ALT 9 Alkaline Phosphata se 94 Creatine Kinase 71 NT-Pro-B Natriuret Pep 309 Total Protein 7.0 Albumin 4.1 Globulin 2.9 Urine Color Urine Appearance Urine pH Ur Specific Grav[place] y Urine Protein Urine Glucose (UA) Urine Ketones Urine Blood Urine Nitrate Urine Bilirubin Urine Urobilinogen Ur Leukocyte Janny ase Urine RBC Urine WBC Ur Squamous Epith Cells Amorphous Sediment Urine Bacteria Urine Mucus SARS-CoV-2 Ag (Rap id) 06/18/21 20:28 WBC 3.1 L RBC 4.36 Hgb 12.8 Hct 38.3 L MCV 87.8 MCH 29.4 MCHC 33.4 RDW 13.8 Plt Count 147 MPV 9.8 Neut % (Auto) 49.6 Lymph % (Auto) 23.9 [place] % (Auto) 25.2 Eos % (Auto) 0.3 Baso % (Auto) 0.3 Neut # (Auto) 1.52 L Lymph # (Auto) 0.7 L [place] # (Auto) 0.8 Eos # (Auto) 0.0 Baso # (Auto) 0.0 Nucleated RBC % (a uto) 0 Nucleated RBCs # 0.0 PT INR APTT D-Dimer Sodium Potassium Chloride Carbon Dioxide Anion Gap BUN Creatinine GFR Calculation Glucose Calculated Osmolal ity Lactic Acid Calcium Total Bilirubin AST ALT Alkaline Phosphata se Creatine Kinase NT-Pro-B Natriuret Pep Total Protein Albumin Globulin Urine Color Urine Appearance Urine pH Ur Specific Grav[place] y Urine Protein Urine Glucose (UA) Urine Ketones Urine Blood Urine Nitrate Urine Bilirubin Urine Urobilinogen Ur Leukocyte Janny ase Urine RBC Urine WBC Ur Squamous Epith Cells Amorphous Sediment Urine Bacteria Urine Mucus SARS-CoV-2 Ag (Rap id) Vitals: Last Vital Signs Temp 98.4 F 06/19/21 08:00 Pulse 65 06/19/21 10:18 Resp 16 06/19/21 10:18 BP 151/83 06/19/21 08:00 Pulse Ox 92 06/19/21 10:18 Discharge Plan Discharge Patient Disposition: Home Condition: Stable Prescriptions: New albuterol sulfate [Ventolin HFA] 90 mcg/actuation Hfa Aerosol Inhaler 2 puff inhalation Q4H.RESPIRATORY PRN (Reason: Shortness Of Breath) Qty: 8.5 RF: 0 acetaminophen 325 mg Tablet 650 mg PO Q6H PRN (Reason: Mild/Mod Pain Or Temp >/= 101) Qty: 30 RF: 0 benzonatate 100 mg Capsule 100 mg PO TID PRN (Reason: Cough) Qty: 90 RF: 0 Continued trazodone 50 mg tablet 50 - 150 mg PO BEDTIME RF: 0 levothyroxine 75 mcg tablet 75 mcg PO DAILY RF: 0 tamsulosin 0.4 mg capsule 0.4 mg PO BID RF: 0 Discharge Orders: Discharge Order (Routine); Ordered 06/19/21 Ordered By: Omar Banegas Referrals: Kaylynn Urbano FNP [Primary Care Provider] - 2 weeks Discharge Activity: Increase activity as tolerated and Limit activity as instructed Patient Instructions: Viral Pneumonia (GEN) Activity Restrictions/Additional Instructions: You have COVID-19 pneumonia. Please obtain a pulse oximeter and measure your oxygen saturation by placing your finger several times a day. In case your saturations are dropping significantly below 90-92%, please seek medical attention. In case you are feeling dizzy or lightheaded, or extremely weak, please sit down or lie down immediately. If you are not feeling better with rest, call 911. Otherwise please seek medical attention in case you experience any significant chest pain, extreme fatigue, progressive shortness of breath, nausea or vomiting with inability to take food or drink by mouth, chest pain or pressure, or any other concerning symptoms. Please isolate for 2 weeks as you are able to spread the infection to other people who are susceptible. Please note on CT scan some changes of emphysema are noted. Once you are feeling better, please discuss with your primary doctor referral for pulmonary function test to assess if you have any underlying lung disease. Please note that occasionally your blood pressure has been seen elevated in the hospital. Please monitor blood pressures at home daily, write down values to bring to your appointment with primary care provider to assess whether you have hypertension. After you recover from your illness, complete vaccination series for COVID-19 to prevent recurrence of infection. Discharge Attestations Time Spent in Discharge Care*: greater than 30 min Quality Metrics Clinical Quality Measures During this hospital stay, did patient experience: None Coding Level of Care Code Acute [facility] note Diagnoses Weakness generalized R53.1 COVID-19 U07.1 COVID-19 vaccine dose not administered Z28.9 Hypothyroidism E03.9 Hypothyroidism type: unspecified Prostatic hypertrophy N40.0
[2021-06-19 11:39] LABS: Hematocrit 39.5 % (42.0-52.0); Hemoglobin 13.3 g/dL (11.7-16.6); Lymphocytes # 0.5 10^3/uL (0.8-4.8); Lymphocytes % 17.8 %; Mean Corpuscular HGB Conc 33.7 g/dL (30.0-36.0); Mean Corpuscular Hemoglobin 29.3 pg (28.0-34.0); Mean Platelet Volume 9.5 fL (7.4-10.4); Monocytes # 0.6 10^3/uL (0.2-0.9); Monocytes % 21.5 %; Neutrophils % 60.4 %; Nucleated Red Blood Cells % 0 %; Platelet Count 144 10^3/cmm (130-400); Red Blood Count 4.54 10^6/uL (4.1-5.3); Red Cell Distribution Width 13.8 % (12.1-15.1)
[2021-06-19] MEDS: remdesivir 200 MG in sodium chloride 0.9% (100 ml) 100 ML 100 MG IV (11:42)
[2021-06-19 11:53] LABS: Alanine Aminotransferase 12 U/L (0-41); Albumin Level 4.1 g/dL (3.5-5.2); Alkaline Phosphatase 92 IU/L (40-130); Aspartate Amino Transferase 26 U/L (0-40); Blood Urea Nitrogen 16 mg/dL (8-23); Calcium 8.4 mg/dL (8.5-10.5); Carbon Dioxide 24 mmol/L (22-29); Chloride 100 mmol/L (98-107); Glucose 108 mg/dL (65-115); Osmolality Calculated 280 mOsm/kg (285-295); Sodium 134 mmol/L (136-145); Total Bilirubin 0.4 mg/dL (0.15-1.2); Total Protein 7.1 g/dL (6.6-8.7)
--- NOTE | 2021-06-19 12:15 | PC.NURSE ---
patients daughter corby called and wanted to talk to the physician about patient being discharged. sh was not on phi, this nurse obtained verbal consent from patient. hallie number is [phone].
[2021-06-19 12:58] LABS: Fibrinogen 318 mg/dL (174-498)
--- NOTE | 2021-06-19 13:49 | PC.NURSE ---
Discharge Note Patient discharged to home via private vehicle accompanied by . Discharge instructions reviewed with patient and/or clearance representative. Mobile pharmacy medications and/or prescriptions provided. Belongings/home medications returned.
--- NOTE | 2021-06-19 16:00 | PC.RESP ---
SMOKING CESSATION INFORMATION SENT TO PATIENT.
--- NOTE | 2021-06-24 14:07 | PC.SOCIAL ---
discharge follow up call made. patient was scheduled with Arely Urbano, says his primary is [facility] Urbano in [place]. New appointment made with PCP. states patient is feeling better. Medications picked up from pharmacy at discharge and taking as prescribed.
== END 2021-06-19 13:51 | disposition home or self-care (01) ==
LOC: ER 06-19 00:56 → MEDSURG 06-19 00:57
PROVIDERS: Emergency Medicine; Admitting Provider Hospitalist; Emergency Provider Emergency Medicine; PCP Nurse Practitioner Family; Visit Provider Internal Medicine
DX: U07.1 COVID-19 (principal); R53.1 Weakness; Z28.9 Immunization not carried out for unspecified reason; E03.9 Hypothyroidism, unspecified; N40.0 Benign prostatic hyperplasia without lower urinary tract symptoms; Z91.81 History of falling; Z85.828 Personal history of other malignant neoplasm of skin; F17.220 Nicotine dependence, chewing tobacco, uncomplicated
CPT/HCPCS: 70450; 71045; 71275; 80053; 81001; 82550; 83605; 83880; 85025; 85378; 85384; 85610; 85730; 87040; 87426; 93005; 94640; 96361; 96365; 96372; 96375; 99285; G0378; J1100; J1650; J7030; Q9967

== ENCOUNTER 2022-04-25 10:17 | Observation (INO) | payer MEDICARE, SELFPAY ==
[2022-04-25] VITALS (13 sets, daily range): BP systolic 111–147; BP diastolic 57–70; PULSE 75–105; RESP 16–29; TEMP 36.6–37.9; O2SAT 89–98; BMI 24.3
--- NOTE | 2022-04-25 10:20 | W.ED.AMS ---
HPI - Altered Mental Status General: Chief Complaint: Altered Mental Status Stated Complaint: AMS; SOB; FEVER Time Seen by Provider: 04/25/22 10:19 Limitations: altered mental status History of Present Illness: Mr. Baker is an 87-year-old gentleman with, per chart review, hypothyroidism and BPH who presents to the emergency department due to altered mental status. History is limited by patient's current mental status. Per EMS report family reports change with associated fever this morning at some point. First responders found the patient essentially unresponsive and hypoxemic though the responsiveness improved with supplemental oxygen. He was given Ativan for anxiolysis by EMS, prior to this he apparently was answering questions and had intact memory regarding remote events as well as no focal neurodeficits. Per family upon their arrival patient was mildly weaker with generalized symptoms yesterday and then worsened overnight. Only recent changes in health is that he did have some sort of hernia repair at [facility] in [place] on the 15th of this month, he did well postoperatively without apparent complication. Onset (ago): hour(s) Consistency of symptoms: Getting Worse Review of Systems General: Reports: ROS unobtainable due to mental status PFSH ED PFSH: Medical History COVID-19 vaccine dose not administered History of skin cancer Hypothyroidism Prostatic hypertrophy Surgical History History of cataract surgery History of skin surgery on penis for skin cancer Family History Denies family history of CAD (coronary artery disease) Social History Smoking and tobacco status: current every day smoker smokeless tobacco Smokeless tobacco user: chewing tobacco Smokeless tobacco details: daily Alcohol intake: current Alcohol intake frequency: holidays/special occasions only Alcohol type: beer Household members: spouse Marital status: Physical Exam Const: GENERAL APPEARANCE: well developed, lethargic and ill appearing ORIENTATION/CONSCIOUSNESS: Yes lethargic HENMT: COMMON NORMALS: normocephalic and atraumatic HEAD & SCALP: normocephalic and atraumatic THROAT: posterior oropharynx normal OTHER: Dry mucous membranes Eye: COMMON NORMALS: conjunctivae normal CONJUNCTIVA: Yes conjunctivae normal SCLERA: sclerae normal Neck/C-Spine: COMMON NORMALS: supple GENERAL: Yes trachea midline Resp: EFFORT & INSPECTION: Yes tachypneic AUSCULTATION: rhonchi and diminished lung sounds Cardio: COMMON NORMALS: regular rhythm RATE: tachycardic RHYTHM: regular rhythm GI: COMMON NORMALS: Soft to palpation PALPATION: Yes Soft to palpation and No Tenderness to palpation present (GI) OTHER: Post surgical laparoscopic sites appear well-healing without evidence of superimposed infection. Large ecchymotic area consistent with hematoma in the left groin, there is some bruising likely gravity dependent to the scrotum. : OTHER: Phimosis, scrotal ecchymosis as noted on GI likely gravity dependent from surgery Extremity: GENERAL: Yes normal exam except as noted and No edema Neuro: COMMON NORMALS: moves all extremities SENSORIUM/ORIENTATION: Yes Orientation impaired and Yes lethargic Psych: MEMORY/COGNITION: Yes memory grossly impaired and Yes cognition grossly impaired Course ED course: - Patient was seen and evaluated by me at bedside - Patient placed on cardiac monitors, IV access obtained - Initial evaluation notable for exam as above, nonfocal however abnormal mental status. - Labs and xrays personally interpreted by me. EKG showing sinus tachycardia with nonspecific ST segment abnormalities. No STEMI. -Fluids and antibiotic given, breathing treatment given. - Labs notable for minimal leukocytosis, normal hemoglobin. Metabolic panel with evidence of dehydration/metabolic stress. BNP mildly elevated. Delta troponin negative. Procalcitonin elevated. Viral studies negative. ABG with hypercapnia and hypoxia - Imaging notable for chest x-ray with no lobar consolidation or pneumothorax. Given severity of symptoms without clear etiology advanced imaging is required. CT head and neck without acute finding. CT chest abdomen pelvis with possible pneumonia. - Upon serial reexamination after treatment the patient was similar - Based on patient history, evaluation, and testing as interpreted the most likely cause of the patient's condition is pneumonia sepsis with altered mental status - The results of ED evaluation were discussed with the patient including plan for admission due to requirement for level of care not available if discharged to prevent significant worsening/deterioration. - Admitting service was contacted and Dr Mayo with the hospital service agreed to admit the patient - Patient was admitted without further deterioration or significant events. Note: Click bubbles or prepopulated pittman in note writing are used for assistance with data collection and billing and are inherently more limited than narrative and other text portions of this note. Please use narrative for additional clinical history and defer to narrative/free test for any case of contradictory information. If information appears in only free text or click bubble it should be considered present or absent as reported. Please contact note singer songwriter for clarifications of clinical information or contradictory information. MDM is a brief summary, contradictory or erroneous seeming information should be clarified and full note should be reviewed. Vital Signs: Vital signs: Vital Signs Temperature 98.5 F 04/27/22 09:12 Pulse Rate 87 04/27/22 09:12 Respiratory Rate 19 H 04/27/22 09:12 Blood Pressure 168/87 04/27/22 08:00 Pulse Oximetry 92 04/27/22 09:12 MDM - Altered Mental Status Medical Decision Making 87-year-old gentleman presenting with altered mental status and evidence of respiratory symptoms. Patient found to have likely ammonia and sepsis. Treated with antibiotics and fluids. Admitted for further management. Medical Records I reviewed the patient's medical records. Lab Data I reviewed the patient's lab results. : 04/27/22 06:04 04/27/22 06:04 Radiology Impressions Chest X-Ray 04/25/22 10:25 IMPRESSION: No acute findings. Head CT 04/25/22 10:31 IMPRESSION: 1. No evidence of acute intracranial abnormality. No evidence of acute infarction, hemorrhage, or mass. 2. Atrophy and microvascular disease. Cervical Spine CT 04/25/22 10:52 IMPRESSION: 1. Loss of cervical lordosis. No evidence of fracture or dislocation. 2. Degenerative findings as described. Chest/Abdomen/Pelvis CT 04/25/22 12:12 IMPRESSION: 1. Posterior bilateral lower lobe parenchymal densities pneumonia and or atelectasis 2. Heavy coronary artery calcifications. 3. Dorsal spine osteoarthritis. IMPRESSION: 1. Hepatomegaly. 2. Sigmoid colon diverticulosis. 3. Large left inguinal hernia filled with bowel and fluid 4. Small gallstones. 5. Multiple calcified splenic granulomas Chest CTA 04/26/22 07:41 IMPRESSION: 1. No definite vascular intraluminal filling defects to suggest large or central acute pulmonary embolism. A small or peripheral PE cannot be excluded. 2. Upper lung zone and biapical centrilobular emphysema. 3. Bilateral posterior dependent and bibasilar atelectasis versus pneumonia and small posterior pleural effusions. 4. 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 5. Old granulomatous disease. Laboratory Results WBC 10.3 10^3/uL (4.0-10.0) H 04/25/22 10:51 RBC 4.30 10^6/uL (4.1-5.3) 04/25/22 10:51 Hgb 12.8 g/dL (11.7-16.6) 04/25/22 10:51 Hct 36.5 % (42.0-52.0) L 04/25/22 10:51 MCV 84.9 fl (80-94) 04/25/22 10:51 MCH 29.8 pg (28.0-34.0) 04/25/22 10:51 MCHC 35.1 g/dL (30.0-36.0) 04/25/22 10:51 RDW 12.6 % (12.1-15.1) 04/25/22 10:51 Plt Count 180 10^3/cmm (130-400) 04/25/22 10:51 MPV 9.8 fL (7.4-10.4) 04/25/22 10:51 Neut % (Auto) 82.1 % 04/25/22 10:51 Lymph % (Auto) 5.7 % 04/25/22 10:51 [place] % (Auto) 8.5 % 04/25/22 10:51 Eos % (Auto) 0.0 % 04/25/22 10:51 Baso % (Auto) 0.2 % 04/25/22 10:51 Neut # (Auto) 8.49 10^3/uL (1.8-7.7) H 04/25/22 10:51 Lymph # (Auto) 0.6 10^3/uL (0.8-4.8) L 04/25/22 10:51 [place] # (Auto) 0.9 10^3/uL (0.2-0.9) 04/25/22 10:51 Eos # (Auto) 0.0 10^3/uL (0.0-0.8) 04/25/22 10:51 Baso # (Auto) 0.0 10^3/uL (0.0-0.1) 04/25/22 10:51 Nucleated RBC % (auto) 0 % 04/25/22 10:51 Nucleated RBCs # 0.0 /100WBC 04/25/22 10:51 PT 15.40 SECONDS (12.1-14.9) H 04/25/22 10:51 INR 1.19 (0.8-1.2) 04/25/22 10:51 APTT 34.2 SECONDS (23.9-36.7) 04/25/22 10:51 D-Dimer 4.74 ug/mIFEU (0-0.59) H 04/25/22 10:51 Specimen Type Arterial 04/25/22 10:48 Sample Site Radial, left 04/25/22 10:48 ABG pH 7.46 (7.35-7.45) H 04/25/22 10:48 ABG pCO2 28.4 mmHg (35-45) L 04/25/22 10:48 ABG pO2 48.4 mmHg (80.0-100.0) L 04/25/22 10:48 ABG HCO3 20.1 mmol/L (22-26) L 04/25/22 10:48 ABG Base Excess -2.6 mmol/L (-2.0-2.0) L 04/25/22 10:48 Jarad Test Pos 04/25/22 10:48 Hematocrit 38.5 % (42-52) L 04/25/22 10:48 O2 Delivery Device Nc 04/25/22 10:48 O2 Liters/Min 2.0 % 04/25/22 10:48 FiO2 28.0 % 04/25/22 10:48 Special Programs Director ID Cak 04/25/22 10:48 Sodium 129 mmol/L (136-145) L 04/25/22 10:51 Potassium 3.4 mmol/L (3.5-5.1) L 04/25/22 10:51 Chloride 94 mmol/L (98-107) L 04/25/22 10:51 Carbon Dioxide 20 mmol/L (22-29) L 04/25/22 10:51 Anion Gap 18.4 (5-19) 04/25/22 10:51 BUN 18 mg/dL (8-23) 04/25/22 10:51 Creatinine 1.0 mg/dL (0.7-1.2) 04/25/22 10:51 GFR Calculation Not Reportable 04/25/22 10:51 Glucose 112 mg/dL (65-115) 04/25/22 10:51 POC Glucose 127 mg/dL (70-110) H 04/25/22 10:50 Calculated Osmolality 271 mOsm/kg (285-295) L 04/25/22 10:51 Lactic Acid 1.3 mmol/L (0.5-2.2) 04/25/22 10:51 Calcium 8.8 mg/dL (8.5-10.5) 04/25/22 10:51 Magnesium 1.8 mg/dL (1.7-2.3) 04/25/22 10:51 Total Bilirubin 1.1 mg/dL (0.15-1.2) 04/25/22 10:51 AST 22 U/L (0-40) 04/25/22 10:51 ALT 10 U/L (0-41) 04/25/22 10:51 Alkaline Phosphatase 76 IU/L (40-130) 04/25/22 10:51 Ammonia 15 umol/L (16-60) L 04/25/22 10:51 Creatine Kinase 87 U/L (39-308) 04/25/22 10:51 Troponin T Baseline 12 ng/L (0-15) 04/25/22 10:51 Troponin T 120 Minute 10.72 ng/L (0-15) 04/25/22 12:48 Delta Troponin T -1.28 ABS# (0-10) L 04/25/22 12:48 C-Reactive Protein 193.2 mg/L (0.0-4.9) H 04/25/22 10:51 NT-Pro-B Natriuret Pep 1644 pg/mL (0-450) H 04/25/22 10:51 Total Protein 7.5 g/dL (6.6-8.7) 04/25/22 10:51 Albumin 3.7 g/dL (3.5-5.2) 04/25/22 10:51 Globulin 3.8 g/dL (1.3-4.6) 04/25/22 10:51 Procalcitonin 1.85 ng/mL (0-0.5) H 04/25/22 10:51 TSH 1.37 uIU/mL (0.27-4.20) 04/25/22 10:51 Coronavirus 229E (PCR) Not detected (NOT DETECT) 04/25/22 11:19 SARS-CoV-2 (PCR) Not detected (NOT DETECT) 04/25/22 11:19 Critical Care Time Critical Care Time: Critical Care Time: Yes Total Critical Care Time: 40 Attestation: Due to a high probability of clinically significant, possibly life threatening deterioration, the patient required my highest level of attention and preparedness to intervene emergently and I personally spent this critical care time directly and personally managing the patient. This critical care time included obtaining a history; examining the patient; pulse oximetry; ordering and review of laboratory and imaging studies; arranging urgent treatment with development of a management plan; evaluation of patient's response to treatment; frequent reassessment; and, discussions with other providers as applicable. It was exclusive of separately billable procedures. Primary system involved is cardiopulmonary, ID, DIGITAL CONTROLS TECHNICAL OFFICER Discharge Plan Discharge Patient Disposition: Admitted As Inpatient Admit Provider: Eric Mayo Clinical Impression: Altered mental status, Sepsis, Pneumonia, Acute respiratory failure with hypoxia Condition: Stable Discharge Diet: Regular Discharge Activity: Increase activity as tolerated Coding Level of Care Code ED Drilling And Production Superintendent for Chg Fwd Exam Comprehensive
--- NOTE | 2022-04-25 10:25 | XRR_ITS ---
PROCEDURE INFORMATION: Exam: XR Chest Exam date and time: 04/25/2022 10:41 AM Age: 87 years old Clinical indication: Cough and shortness of breath; Additional info: AMS, SOB TECHNIQUE: Imaging protocol: Radiologic exam of the chest. Views: 1 view. COMPARISON: CR XR chest 1V portable [id number] 06/18/2021 8:39 PM FINDINGS: Lungs: Unremarkable. No consolidation. Pleural spaces: Unremarkable. No pleural effusion. No pneumothorax. Heart/Mediastinum: Unremarkable. No cardiomegaly. Bones/joints: Unremarkable. XR/XR chest 1V portable [id number] IMPRESSION: No acute findings.
--- NOTE | 2022-04-25 10:27 | ECG_ITS ---
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 Measurements Intervals [place] Rate: 100 P: 57 [place]: 163 QRS: -19 QRSD: 113 T: 46 QT: 335 QTc: 433 Interpretive Statements SINUS TACHYCARDIA MODERATE INTRAVENTRICULAR CONDUCTION DELAY [110+ ms QRS DURATION] Compared to ECG 08/03/2021 20:54:37 Intraventricular conduction delay now present Sinus rhythm no longer present Electronically Signed On 04-25-2022 12:28:01 CDT by Lakhwinder Olivo M.D. [email or web address] [id number]
--- NOTE | 2022-04-25 10:31 | CTR_ITS ---
PROCEDURE INFORMATION: Exam: CT Head Without Contrast Exam date and time: 04/25/2022 11:04 AM Age: 87 years old Clinical indication: Altered mental status/memory loss; Additional info: AMS TECHNIQUE: Imaging protocol: Computed tomography of the head without contrast. Radiation optimization: All CT scans at this facility use at least one of these dose optimization techniques: automated exposure control; mA and/or kV adjustment per patient size (includes targeted exams where dose is matched to clinical indication); or iterative reconstruction. COMPARISON: CT head wo con* [id number] 06/18/2021 10:37 PM RADIATION DOSE METRICS: Total DLP (mGy-cm): 963.99 FINDINGS: Limitations: There is motion artifact partially degrading examination. Brain: There is no acute intracranial hemorrhage. There is lucency in the cerebral white matter, likely microvascular disease although non-specific. No evidence of mass. There is no mass effect or midline shift. Cloud white differentiation is intact. There are no extra-axial fluid collections. Cerebral ventricles: The ventricles and sulci are enlarged, consistent with volume loss / atrophy. No hydrocephalus. Paranasal sinuses: Visualized sinuses are unremarkable. No fluid levels. Mastoid air cells: No significant mastoid effusion. Auditory system: Opacity in right external auditory canal may be cerumen but correlate clinically with direct visualization. Bones/joints: No acute fracture. Soft tissues: Unremarkable as visualized. Vasculature: There is vascular calcification. CT/CT head wo con* [id number] IMPRESSION: 1. No evidence of acute intracranial abnormality. No evidence of acute infarction, hemorrhage, or mass. 2. Atrophy and microvascular disease.
[2022-04-25] MEDS: ipratropium-albuterol 3 mL Neb INHALATION (10:43)
--- NOTE | 2022-04-25 10:52 | CTR_ITS ---
PROCEDURE INFORMATION: Exam: CT Cervical Spine Without Contrast Exam date and time: 04/25/2022 11:06 AM Age: 87 years old Clinical indication: Injury or trauma; Fall; Blunt trauma; Additional info: AMS, fall TECHNIQUE: Imaging protocol: Computed tomography of the cervical spine without contrast. Radiation optimization: All CT scans at this facility use at least one of these dose optimization techniques: automated exposure control; mA and/or kV adjustment per patient size (includes targeted exams where dose is matched to clinical indication); or iterative reconstruction. COMPARISON: CT head wo con* [id number] 04/25/2022 11:04 AM RADIATION DOSE METRICS: Total DLP (mGy-cm): 661.92 FINDINGS: Limitations: There is motion artifact partially degrading examination. Bones/joints: No acute fracture. Loss of cervical lordosis may be positional or associated with muscular spasm. Vertebral body heights are maintained. There is no fracture or dislocation. Facet joints appear well aligned. There is grade 1 anterolisthesis of C4 on C5 and C7 on T1. There is fusion of C6 and C7 vertebral bodies. There is slight S-shaped curvature cervical and upper thoracic spine. Discs/Spinal canal/Neural foramina: There are diffuse degenerative changes with disc height loss, disc osteophyte complexes, and uncinate and facet osteophytes. There is spinal stenosis greatest at C5-C6 and C6-C7 and difficult to quantitate on CT. Diffuse neural foraminal narrowing which ranges from mild to severe and is severe at multiple levels including left C3-C4, left C4-C5, bilateral C5-C6, and bilateral C6-C7. Prevertebral and retropharyngeal spaces: Prevertebral soft tissues appear normal. Lungs: Lung apices are unremarkable for acute finding. Soft tissues: Unremarkable. CT/CT cervical spin wo con* [id number] IMPRESSION: 1. Loss of cervical lordosis. No evidence of fracture or dislocation. 2. Degenerative findings as described.
[2022-04-25 10:59] LABS: ABG PCO2 28.4 mmHg (35-45); ABG PH Result 7.46 (7.35-7.45); Arterial Blood Gas Hematocrit 38.5 % (42-52); Base Excess ABG -2.6 mmol/L (-2.0-2.0); Blood Gas Allen Test Pos; Blood Gas Operator Identificat CAK; Blood Gas Sample Site Radial, left; Blood Gas Sample Type Arterial; HCO3 ABG 20.1 mmol/L (22-26); Oxygen Device NC; PO2 ABG 48.4 mmHg (80.0-100.0)
[2022-04-25 10:59] LABS: Basophils % 0.2 %; Hematocrit 36.5 % (42.0-52.0); Hemoglobin 12.8 g/dL (11.7-16.6); Lymphocytes # 0.6 10^3/uL (0.8-4.8); Lymphocytes % 5.7 %; Mean Corpuscular HGB Conc 35.1 g/dL (30.0-36.0); Mean Corpuscular Hemoglobin 29.8 pg (28.0-34.0); Mean Corpuscular Volume 84.9 fl (80-94); Mean Platelet Volume 9.8 fL (7.4-10.4); Monocytes # 0.9 10^3/uL (0.2-0.9); Monocytes % 8.5 %; Neutrophils # 8.49 10^3/uL (1.8-7.7); Neutrophils % 82.1 %; Nucleated Red Blood Cells % 0 %; Platelet Count 180 10^3/cmm (130-400); Red Cell Distribution Width 12.6 % (12.1-15.1); White Blood Count 10.3 10^3/uL (4.0-10.0)
[2022-04-25 11:19] LABS: Ammonia 15 umol/L (16-60)
[2022-04-25 11:20] LABS: INR 1.19 (0.8-1.2)
[2022-04-25 11:21] LABS: Partial Thromboplastin Time 34.2 SECONDS (23.9-36.7)
[2022-04-25 11:27] LABS: Lactic Sepsis W/Reflex 1.3 mmol/L (0.5-2.2); Troponin(5th) Baseline 12 ng/L (0-15)
[2022-04-25 11:34] LABS: NT Pro B Type Natriuretic Pept 1644 pg/mL (0-450); Procalcitonin 1.85 ng/mL (0-0.5); Thyroid Stimulating Hormone 1.37 uIU/mL (0.27-4.20)
[2022-04-25 11:45] LABS: Alanine Aminotransferase 10 U/L (0-41); Albumin Level 3.7 g/dL (3.5-5.2); Alkaline Phosphatase 76 IU/L (40-130); Anion Gap 18.4 (5-19); Aspartate Amino Transferase 22 U/L (0-40); Blood Urea Nitrogen 18 mg/dL (8-23); C Reactive Protein 193.2 mg/L (0.0-4.9); Calcium 8.8 mg/dL (8.5-10.5); Carbon Dioxide 20 mmol/L (22-29); Chloride 94 mmol/L (98-107); Creatine Phosphokinase 87 U/L (39-308); Globulin 3.8 g/dL (1.3-4.6); Glucose 112 mg/dL (65-115); Magnesium 1.8 mg/dL (1.7-2.3); Osmolality Calculated 271 mOsm/kg (285-295); Potassium 3.4 mmol/L (3.5-5.1); Sodium 129 mmol/L (136-145); Total Bilirubin 1.1 mg/dL (0.15-1.2); Total Protein 7.5 g/dL (6.6-8.7)
--- NOTE | 2022-04-25 12:12 | CTR_ITS ---
PROCEDURE INFORMATION: Exam: CT Chest With Contrast; Diagnostic Exam date and time: 04/25/2022 2:45 PM Age: 87 years old Clinical indication: Fever; Shortness of breath; Prior surgery; Surgery type: Hernia; Additional info: Sepsis, AMS, new o2, HX hernia repair with hematoma/discolor TECHNIQUE: Imaging protocol: Diagnostic computed tomography of the chest with contrast. Radiation optimization: All CT scans at this facility use at least one of these dose optimization techniques: automated exposure control; mA and/or kV adjustment per patient size (includes targeted exams where dose is matched to clinical indication); or iterative reconstruction. Contrast material: OMNI 350; Contrast volume: 95 ml; Contrast route: INTRAVENOUS (IV); COMPARISON: CT angio chest PE protcl [id number] 06/18/2021 10:41 PM RADIATION DOSE METRICS: Total DLP (mGy-cm): 2451.36 FINDINGS: Lungs: Bilateral posterior lower lobe parenchymal densities with air bronchograms. These findings are not seen on prior and may reflect atelectasis and or pneumonia. No masses. Pleural spaces: Unremarkable. No pneumothorax. No pleural effusion. Heart: Heavy coronary artery calcifications. No cardiomegaly. No pericardial effusion. Lymph nodes: Unremarkable. No enlarged lymph nodes. Vasculature: Unremarkable. No aortic aneurysm. Bones/joints: Dorsal spine osteoarthritis is seen.. No acute fracture. Soft tissues: Unremarkable. PROCEDURE INFORMATION: Exam: CT Abdomen And Pelvis With Contrast Exam date and time: 04/25/2022 2:45 PM Age: 87 years old Clinical indication: Fever; Shortness of breath; Prior surgery; Surgery type: Hernia; Additional info: Sepsis, AMS, new o2, HX hernia repair with hematoma/discolor TECHNIQUE: Imaging protocol: Computed tomography of the abdomen and pelvis with contrast. Radiation optimization: All CT scans at this facility use at least one of these dose optimization techniques: automated exposure control; mA and/or kV adjustment per patient size (includes targeted exams where dose is matched to clinical indication); or iterative reconstruction. Contrast material: OMNI 350; Contrast volume: 95 ml; Contrast route: INTRAVENOUS (IV); COMPARISON: CT angio chest PE protcl [id number] 06/18/2021 10:41 PM RADIATION DOSE METRICS: Total DLP (mGy-cm): 2451.36 FINDINGS: Liver: Hepatomegaly the liver span i 21 cm. No mass. Gallbladder and bile ducts: There are small calcified stones. No ductal dilation. Pancreas: Normal. No ductal dilation. Spleen: Multiple splenic calcified granulomas No splenomegaly. Adrenal glands: Normal. No mass. Kidneys and ureters: Normal. No hydronephrosis. Stomach and bowel: Sigmoid colon diverticulosis without diverticulitis. No obstruction. No mucosal thickening. Appendix: No evidence of appendicitis. Intraperitoneal space: Unremarkable. No free air. No significant fluid collection. Vasculature: Unremarkable. No abdominal aortic aneurysm. Lymph nodes: Unremarkable. No enlarged lymph nodes. Urinary bladder: Unremarkable as visualized. Reproductive: Unremarkable as visualized. Bones/joints: Unremarkable. No acute fracture. Soft tissues: There is left side inguinal hernia 41 mm x 49 mm x 61 mm . There is no evidence of bowel ischemic changes. CT/CT chest abd pel w con* IMPRESSION: 1. Posterior bilateral lower lobe parenchymal densities pneumonia and or atelectasis 2. Heavy coronary artery calcifications. 3. Dorsal spine osteoarthritis. IMPRESSION: 1. Hepatomegaly. 2. Sigmoid colon diverticulosis. 3. Large left inguinal hernia filled with bowel and fluid 4. Small gallstones. 5. Multiple calcified splenic granulomas
--- NOTE | 2022-04-25 12:27 | ECG_ITS ---
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 Measurements Intervals [place] Rate: 94 P: 63 [place]: 174 QRS: -24 QRSD: 116 T: 21 QT: 340 QTc: 425 Interpretive Statements SINUS RHYTHM BORDERLINE LEFT AXIS DEVIATION [QRS AXIS < -20] MODERATE INTRAVENTRICULAR CONDUCTION DELAY [110+ ms QRS DURATION] Compared to ECG 04/25/2022 11:26:49 Sinus tachycardia no longer present Electronically Signed On 04-26-2022 17:38:33 CDT by Lakhwinder Olivo M.D. [id number]
[2022-04-25 13:31] LABS: Troponin 5 2HR 10.72 ng/L (0-15)
[2022-04-25] MEDS: cefTRIAXone 1,000 MG in sodium chloride 0.9% (plus) 50 ML 100 MG IV (13:38)
[2022-04-25 13:47] LABS: Adenovirus Not Detected (NOT DETECT); Chlamydia Pneumoniae Not Detected (NOT DETECT); Coronavirus 229E,HKU1,NL63,OC4 Not Detected (NOT DETECT); Human Metapneumovirus Not Detected (NOT DETECT); Human Rhinovirus/Enterovirus Not Detected (NOT DETECT); Influenza A Not Detected (NOT DETECT); Influenza A H1 Not Detected (NOT DETECT); Influenza A H1-2009 Not Detected (NOT DETECT); Influenza A H3 Not Detected (NOT DETECT); Influenza B Not Detected (NOT DETECT); Mycoplasma Pneumoniae Not Detected (NOT DETECT); Parainfluenza Virus Type 1 Not Detected (NOT DETECT); Parainfluenza Virus Type 2 Not Detected (NOT DETECT); Parainfluenza Virus Type 3 Not Detected (NOT DETECT); Parainfluenza Virus Type 4 Not Detected (NOT DETECT); Respiratory Syncytial Virus A Not Detected (NOT DETECT); Respiratory Syncytial Virus B Not Detected (NOT DETECT); SARS-COV-2 Not Detected (NOT DETECT)
[2022-04-25 13:58] LABS: Troponin 5 2HR Delta -1.28 ABS# (0-10)
[2022-04-25] MEDS: iohexol 350 mg/mL 100 mL Btl IV (14:45)
--- NOTE | 2022-04-25 15:39 | P.HP_ITS ---
Providers/Chief Complaint Primary Care Provider: Jaymie Urbano Chief Complaint: AMS; SOB; FEVER History of Present Illness Pawel Baker is a 87 year old male who recently had hernia repair at [facility] 2 weeks ago, presents today with chief complaint of confusion fatigue and lethargy. is at the bedside who is stating that after surgery patient was doing fine until 2 days ago when he started coughing excessively. She is not sure about fever, patient never complained of any chest pain, he has been coughing all night and this morning he was very drowsy and confused, went to the other room to get him his rocking chair, patient fell backwards while adjusting his chair and could not get up on his own at that time EMS was called. When EMS arrived patient was very obtunded and drowsy and hypoxic. He was put on oxygen that improved his mentation to some extent. At home he does not use oxygen, as per the he does drink beer on daily basis and he has history of alcohol abuse. In the ER he has been diagnosed with sepsis related to pneumonia he has been given antibiotics, septic bolus has been administered lactic acid normal He will be admitted to ICU CT abdomen pelvis did not show any complications of his recent surgery, chest CT showing pneumonia ABG revealed severe hypoxia At the time of evaluation he is on nonrebreather mask 15 L Is DNR/DNI Hyponatremia Hypokalemia Procalcitonin is high COVID-negative Left-sided inguinal hernia no evidence of bowel ischemia, left inguinal hernia filled with bowel and fluid Review of Systems General: Reports: ROS unobtainable due to medical condition Medications/Allergies Home Medications Medication Instructions Recorded Confirmed Last Taken Type acetaminophen 325 mg tablet 650 mg PO Q6H PRN #30 tab 06/19/21 04/25/22 Unknown Rx albuterol sulfate 90 mcg/actuation 2 puff INHALATION Q4H.RESPIRATORY 06/19/21 0 04/25/22 Unknown Rx aerosol inhaler (Ventolin HFA) PRN #8.5 g benzonatate 100 mg capsule 100 mg PO TID PRN #90 cap 06/19/21 04/25/22 Unknown Rx tamsulosin 0.4 mg capsule 0.4 mg PO BID 06/19/21 04/25/22 04/24/22 History trazodone 50 mg tablet 50 - 150 mg PO BEDTIME PRN 06/19/21 04/25/22 Unknown History levothyroxine 100 mcg tablet 100 mcg PO DAILY 04/25/22 04/25/22 04/24/22 History levothyroxine 88 mcg tablet 88 mcg PO DAILY 04/25/22 04/25/22 04/24/22 History multivitamin 1 tab PO DAILY 04/25/22 04/25/22 04/24/22 History Allergies Allergy/AdvReac Type Severity Reaction Status Date / Time No Known Allergies Allergy Verified 06/18/21 19:45 PFSH Acute PFSH: Medical History COVID-19 vaccine dose not administered History of skin cancer Hypothyroidism Prostatic hypertrophy Surgical History History of cataract surgery History of skin surgery on penis for skin cancer Family History Denies family history of CAD (coronary artery disease) Social History Smoking and tobacco status: current every day smoker smokeless tobacco Smokeless tobacco user: chewing tobacco Smokeless tobacco details: daily Alcohol intake: current Alcohol intake frequency: holidays/special occasions only Alcohol type: beer Household members: spouse Marital status: Vitals/I&O/Wt Last Vital Signs Temp 100.2 F H 04/25/22 10:18 Pulse 92 04/25/22 14:52 Resp 16 04/25/22 14:52 BP 132/66 04/25/22 14:52 Pulse Ox 98 04/25/22 14:52 04/25/22 04/25/22 04/25/22 06:59 14:59 22:59 Intake Total 2535 / 2535 Balance 2535 / 2535 Weight last 48 hrs Weight 88.451 kg Physical Exam Narrative: Patient is very confused However verbally directable Febrile Currently on nonrebreather mask 15 L Coarse breath sounds Abdomen soft Swelling in left inguinal area Hematoma of scrotal area noticed Blood pressure is stable Saturating 97% on 15 L nonrebreather mask Very confused and obtunded Looks dehydrated Lower extremity no edema S1, S2 sinus tachycardia Data : 04/25/22 10:51 04/25/22 10:51 Micro: Microbiology 04/25/22 12:48 Blood Culture - Preliminary Blood SPECIMEN COLLECTED 04/25/22 12:45 Blood Culture - Preliminary Blood SPECIMEN COLLECTED A&P Assessment and plan (1) Altered mental status: Status: Acute (2) Pneumonia: Status: Acute (3) Sepsis: Status: Acute (4) Acute respiratory failure with hypoxia: Status: Acute Plan Metabolic encephalopathy related to sepsis Sepsis related to hospital-acquired pneumonia Start broad-spectrum antibiotics No signs of bowel ischemia however inguinal hernia does contain bowel and fluid- filled sac, blood pressure stable, H&H 12.8 lactic acid is normal DuoNeb every 4 as needed Start prednisone Sputum and blood cultures Septic bolus fluids Lactic acid is not high Sepsis criteria met with fever, tachypnea, leukocytosis, COVID-19 negative Left inguinal hernia without obstruction, recent inguinal hernia surgery 2 weeks ago at [facility] Filled with bowel and fluid Small gallstones Splenic granulomas Sigmoid reticulosis Hepatomegaly Lactic acid normal Hyponatremia Hypovolemic hyponatremia Gentle fluid hydration he has received septic bolus his BNP is high, Currently on nonrebreather mask Check D-dimer rule out PE Admit to ICU Start diet once he is more awake and alert I will have him have cardiac diet Goals of care discussed with the and his daughter he is DNR/DNI DVT prophylaxis Attestations Medical Necessity Statement*: Anticipating more than 2 midnights for sepsis, pneumonia, encephalopathy Time Spent in Patient Care: 40 Coding Level of Care Code Acute Statistical Geneticist for [facility] Fwana Diagnoses Altered mental status R41.82 Pneumonia J18.9 Sepsis A41.9 Acute respiratory failure with hypoxia J96.01
--- NOTE | 2022-04-25 16:27 | ECG_ITS ---
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 Measurements Intervals [place] Rate: 85 P: 54 NM: 163 QRS: -23 QRSD: 115 T: -11 QT: 343 QTc: 409 Interpretive Statements SINUS RHYTHM BORDERLINE LEFT AXIS DEVIATION [QRS AXIS < -20] MODERATE INTRAVENTRICULAR CONDUCTION DELAY [110+ ms QRS DURATION] Compared to ECG 04/25/2022 15:21:43 No significant changes Electronically Signed On 04-26-2022 17:37:46 CDT by Lakhwinder Olivo M.D. [email or web address] regional medical centerMeditrina Pharmaceuticals, Incchillic[facility] hospital.[email or web address]/store/[id number]
[2022-04-25] MEDS: tamsulosin 0.4 mg Capsule PO (18:10)
[2022-04-25] MEDS: piperacillin-tazobactam 3.375 GM in sodium chloride 0.9% (plus) 50 ML IV (18:10)
[2022-04-25] MEDS: heparin 5,000 unit/mL INJ 1 mL 5000 UNIT SUBCUT (18:10)
--- NOTE | 2022-04-25 18:12 | PC.PHAR ---
Vancomycin is dosed at 1gm IVPB every 24 hours to produce a predicted trough level of 17.04 (population based phaarmacokinetic analysis). A trough level has been ordered from the lab to be obtained before the fourth dose to confirm and adjust if needed. The Zosyn is dosed at 3.375gm IVPB every 8 hours on the basis of the creatinine clearance of 64.56.
[2022-04-25] MEDS: vancomycin 1,000 MG in sodium chloride 0.9% 250 ML 250 MG IV (18:34)
[2022-04-25] MEDS: sodium chlor 0.9% + KCl 20 mEq 20 MEQ/1,000 ML BAG 75 MEQ IV (18:35)
[2022-04-25 18:36] LABS: Alcohol Level < 10 mg/dL (0-10)
[2022-04-25 18:36] LABS: D Dimer 4.74 ug/mIFEU (0-0.59)
[2022-04-25 18:47] LABS: Vitamin B12 355 pg/mL (232-1245)
[2022-04-25 19:29] LABS: Troponin 5 6HR 11.91 ng/L (0-15)
[2022-04-25 19:58] LABS: Troponin 5 6HR Delta -0.09 ng/L (0-12)
[2022-04-26] VITALS (22 sets, daily range): BP systolic 114–160; BP diastolic 62–96; PULSE 68–89; RESP 10–27; TEMP 36.7–37.1; O2SAT 91–97
[2022-04-26] MEDS: piperacillin-tazobactam 3.375 GM in sodium chloride 0.9% (plus) 50 ML IV ×3 (01:08→17:04)
[2022-04-26 03:06] LABS: Glucose Point of Care 127 mg/dL (70-110)
[2022-04-26] MEDS: heparin 5,000 unit/mL INJ 1 mL 5000 UNIT SUBCUT ×2 (05:34→17:05)
[2022-04-26 05:46] LABS: Basophils # 0.1 10^3/uL (0.0-0.1); Basophils % 0.6 %; Eosinophils # 0.1 10^3/uL (0.0-0.8); Eosinophils % 0.7 %; Hematocrit 30.8 % (42.0-52.0); Hemoglobin 10.4 g/dL (11.7-16.6); Lymphocytes # 1.1 10^3/uL (0.8-4.8); Lymphocytes % 9.1 %; Mean Corpuscular HGB Conc 33.8 g/dL (30.0-36.0); Mean Corpuscular Hemoglobin 30.1 pg (28.0-34.0); Mean Platelet Volume 10.3 fL (7.4-10.4); Monocytes # 0.6 10^3/uL (0.2-0.9); Neutrophils # 9.05 10^3/uL (1.8-7.7); Nucleated Red Blood Cells % 0 %; Platelet Count 165 10^3/cmm (130-400); Red Blood Count 3.46 10^6/uL (4.1-5.3); White Blood Count 11.6 10^3/uL (4.0-10.0)
--- NOTE | 2022-04-26 05:57 | PC.NURSE ---
Patient alert and oriented this morning. Restraints removed at 0415. at bedside.
[2022-04-26 06:20] LABS: Slide Review Slide Review Perform
--- NOTE | 2022-04-26 06:26 | PM.PN ---
Subjective Subjective: Significant improvement in his mentation overnight Patient is drinking coffee no aspiration I will advance his diet to regular Patient is awake and alert nonfocal neuro exam Very pleasant However he has no recall of events from yesterday is at the bedside Adequate urine output Low-grade fever Patient is asking for food He feels hungry He is not endorsing any chest pain or shortness of breath Vitals/I&O/Wt Last Vital Signs Temp 98.2 F 04/26/22 04:00 Pulse 76 04/26/22 06:00 Resp 22 H 04/26/22 06:00 BP 123/69 04/26/22 06:00 Pulse Ox 93 04/26/22 06:00 04/25/22 04/25/22 04/26/22 14:59 22:59 06:59 Intake Total 2685 / 2685 300 / 2985 50 / 3035 Balance 2685 / 2685 300 / 2985 50 / 3035 Weight last 48 hrs Weight 85.23 kg Weight 88.451 kg Weight 88.451 kg Physical Exam Narrative: Nonfocal neuro exam Saturating well on room air Hemodynamically stable Euvolemic Abdomen soft Nonlabored breathing Normal breath sounds Lower extremity no edema Patient is awake and alert Nonfocal neuro exam EOMI, PERRLA Awake and alert oriented x3 GCS 15 at the bedside Data : 04/26/22 05:09 04/25/22 10:51 Micro: Microbiology 04/25/22 12:48 Blood Culture - Preliminary Blood SPECIMEN COLLECTED 04/25/22 12:45 Blood Culture - Preliminary Blood SPECIMEN COLLECTED A&P Assessment and plan (1) Altered mental status: Status: Acute (2) Sepsis: Status: Acute (3) Pneumonia: Status: Acute (4) Acute respiratory failure with hypoxia: Status: Acute Plan Sepsis related to hospital-acquired pneumonia He was hospitalized 2 weeks ago for hernia surgery Low-grade fever Mentation has significantly improved Metabolic encephalopathy: Improved Sepsis: Resolving Showing good signs of recovery I will de-escalate his antibiotics tomorrow He can be transferred out of ICU Regular diet No needed speech evaluation No signs of aspiration Patient is awake and alert Continue levothyroxine for hypothyroidism Acute hypoxia: Resolved currently on room air DNR/DNI DVT prophylaxis on board Attestations Medical Necessity Statement*: He can be transferred out of ICU Time Spent in Patient Care: 30 Coding Level of Care Code 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
[2022-04-26 06:41] LABS: ABG PCO2 31.7 mmHg (35-45); ABG PH Result 7.39 (7.35-7.45); Arterial Blood Gas Hematocrit 31.9 % (42-52); Base Excess ABG -5.2 mmol/L (-2.0-2.0); Blood Gas Allen Test Pos; Blood Gas Operator Identificat ED; Blood Gas Sample Site Radial, right; Blood Gas Sample Type Arterial; Oxygen Device ROOM AIR; PO2 ABG 58.9 mmHg (80.0-100.0)
--- NOTE | 2022-04-26 07:41 | USCV_ITS ---
Pawel Baker Age: 87 Gender: M : 1935 Exam Date: 04/26/2022 10:50 Ordering Phys: Eric Mayo MD Technologist: Ramu Moreno Exam Location: [facility] – [place]_ Indication: bilat edema PROCEDURES: The venous duplex Doppler examination of both lower extremities was performed in the standard fashion. The following venous structures were evaluated: common femoral vein, profunda vein, proximal portion of the greater saphenous vein, superficial femoral vein, and the popliteal vein. In addition, the posterior tibial and peroneal trunk were evaluated. FINDINGS: Normal 2-D Doppler and augmentation and compressibility throughout the lower extremity venous structures. Additional imaging through the proximal calf veins also reveals no thrombus. Limited evaluation of the greater saphenous vein is patent with no thrombus.. CONCLUSIONS No evidence of right lower extremity DVT. No evidence of left lower extremity DVT. Asad Dobbins MD (Electronically Signed) Final Date: 26 April 2022 16:59 S
--- NOTE | 2022-04-26 07:41 | CTR_ITS ---
PROCEDURE INFORMATION: Exam: CTA Chest With Contrast Exam date and time: 04/26/2022 11:31 PM Age: 87 years old Clinical indication: Abnormal findings; Abnormal diagnostic tests; Elevated d-dimer; Shortness of breath; Patient HX: SOB with elevated d dimer. ; Additional info: Hypoxia TECHNIQUE: Imaging protocol: Computed tomographic angiography of the chest with contrast. 3D rendering (Not supervised by radiologist): MIP and/or 3D reconstructed images were created by the technologist. Radiation optimization: All CT scans at this facility use at least one of these dose optimization techniques: automated exposure control; mA and/or kV adjustment per patient size (includes targeted exams where dose is matched to clinical indication); or iterative reconstruction. Contrast material: OMNI 350; Contrast volume: 70 ml; Contrast route: INTRAVENOUS (IV); COMPARISON: CT angio chest PE protcl [id number] 06/18/2021 10:41 PM RADIATION DOSE METRICS: Total DLP (mGy-cm): 549.23 FINDINGS: Limitations: Mild motion artifact. Pulmonary arteries: Suboptimal opacification and visualization of the small peripheral pulmonary arteries. No definite vascular intraluminal filling defects to suggest large or central acute pulmonary embolism. Aorta: Ectatic, tortuous and calcified thoracic aorta. No aortic dissection. Lungs: Upper lung zone and biapical centrilobular emphysema. Bilateral posterior dependent and bibasilar atelectasis versus pneumonia. Multiple small calcified granulomas. Pleural spaces: Small posterior pleural effusions. Small pleural calcifications. Heart: Heart size upper limits of normal. Coronary artery calcifications. Lymph nodes: Multiple small calcified and noncalcified mediastinal lymph nodes. Spleen: Punctate splenic calcified granulomas. Bones/joints: Thoracic spondylosis and degenerative bony changes. Soft tissues: No significant soft tissue abnormalities. CT/CT angio chest PE protcl [id number] IMPRESSION: 1. No definite vascular intraluminal filling defects to suggest large or central acute pulmonary embolism. A small or peripheral PE cannot be excluded. 2. Upper lung zone and biapical centrilobular emphysema. 3. Bilateral posterior dependent and bibasilar atelectasis versus pneumonia and small posterior pleural effusions. 4. 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 5. Old granulomatous disease.
[2022-04-26] MEDS: folic acid 1 mg Tablet PO (08:03)
[2022-04-26] MEDS: levothyroxine 100 mcg Tablet PO (08:03)
[2022-04-26] MEDS: levothyroxine 88 mcg Tablet PO (08:03)
[2022-04-26] MEDS: tamsulosin 0.4 mg Capsule PO ×2 (08:03→17:05)
[2022-04-26] MEDS: sodium chlor 0.9% + KCl 20 mEq 20 MEQ/1,000 ML BAG 75 MEQ IV (08:04)
--- NOTE | 2022-04-26 10:13 | PC.CHAP ---
Pastoral Care Encounter/Spiritual Assessment Type of Contact [] Declined health information systems technician visit [] Patient/Family/Request visit [] Outpatient visit [] Follow-up visit [] Physician referral [] Code/Alert [x] Routine visit [] Staff referral [] Actively dying [] Patient sleeping [x] Family support [] [] Out of room [] Palliative care [] [] Receiving care in room [] Pre-surgical visit [] Trauma [] Long length of stay [x] ICU visit [] Other: Relational/Emotional Strength [] Patient feels connected with others/family/visitors/staff [] Distress [] Loneliness/isolation [] Abandonment Spirituality of Patient [] Person of [place] [] Attends Mosque of their [place] [] Believes in Prayer [] Reads Bible or Orthodoxy materials [] There are Spiritual issues to be addressed Customer Specialist Interventions [x] Prayer [x] Active listening [x] Non-anxious presence [x] Spiritual/emotional support [] Crisis/trauma care [] Spiritual counseling [] Bereavement support [] Provided bereavement packet [] Provided Bible/devotional materials [] Provided toy/stuffed animal, coloring book to patient or family member [] Provided Communion [] Anointing/[place] [] Salvation [x] Completed spiritual assessment [] Other: Impact on Illness or Injury [] Angry [] Fearful [] Anxious [] Often cries [] Exhaustion [] Unable to work [] Unable to attend anglican [] Unable to walk/stand [] Unable to read [] Unable to drive [] Unable to eat/drink [] Unable to sleep [] Unable to be with family [] Patient intubated [] Other: Summary met patient in ER tuesday... family present... today he is stronger- alert- and eating Time spent with patient 10 min
[2022-04-26] MEDS: nicotine 21 mg Patch 1 PATCH TRANSDERMA (10:39)
[2022-04-26 11:29] LABS: Anion Gap 14.3 (5-19); Blood Urea Nitrogen 20 mg/dL (8-23); C Reactive Protein 207.2 mg/L (0.0-4.9); Calcium 7.8 mg/dL (8.5-10.5); Carbon Dioxide 20 mmol/L (22-29); Chloride 104 mmol/L (98-107); Glucose 121 mg/dL (65-115); Osmolality Calculated 284 mOsm/kg (285-295); Potassium 3.3 mmol/L (3.5-5.1); Sodium 135 mmol/L (136-145)
[2022-04-26] MEDS: ALPRAZolam 0.5 mg Tablet 0.25 MG PO (17:14)
--- NOTE | 2022-04-26 17:36 | USCV_ITS ---
Pawel Baker Age: 87 Gender: M : 1935 Exam Date: 04/26/2022 00:16 Ordering Phys: Eric Mayo MD Technologist: Roman Holman Exam Location: [facility] [place] Indication: congestive heart failure BP: 128 / 60 HR: 75 Rhythm: Sinus Technical Quality: Adequate MEASUREMENTS (Male / Female) Normal Values 2D ECHO LV Diastolic Diameter PLAX 4.9 cm 4.2 - 5.9 / 3.9 - 5.3 cm LV Systolic Diameter PLAX 3.3 cm IVS Diastolic Thickness 1.1 cm 0.6 - 1.0 / 0.6 - 0.9 cm IVS Systolic Thickness 1.2 cm LVPW Diastolic Thickness 1.0 cm 0.6 - 1.0 / 0.6 - 0.9 cm LVPW Systolic Thickness 1.1 cm LVOT Diameter 2.0 cm LV Ejection Fraction 2D Teich 57.5 % LV Ejection Fraction MOD 2C 43.6 % LV Ejection Fraction 2C AL 43.9 % LA Diameter 3.0 cm LA Width 4.7 cm LA Height 3.3 cm RA Width 4.8 cm RA Height 4.4 cm Aorta at Sinotubular Diameter 2.9 cm IVC Diameter 2.1 cm M-MODE Aortic Annulus Diameter 3.3 cm LA Ao Ratio MM 1.1 MV E Point Septal Separation 1.0 cm DOPPLER AV Peak Velocity 171.3 cm/s LVOT Peak Velocity 74.0 cm/s AV Area Cont Eq vti 1.4 cm squared AV Area Cont Eq pk 1.4 cm squared MV Area PHT 5.0 cm squared Mitral E to A Ratio 1.5 MV E' Velocity 57.0 cm/s Mitral E to MV E' Ratio 7.3 Mitral E to LV E' Lateral Ratio 6.3 Mitral E to LV E' Septal Ratio 8.7 TR Peak Velocity 236.9 cm/s TR Peak Gradient 22.4 mmHg TR Mean Velocity 164.0 cm/s TR Mean Gradient 12.9 mmHg TR Velocity Time Integral 70.4 cm Right Atrial Pressure 13.0 mmHg Pulmonary Artery Systolic Pressu 35.4 mmHg PV Peak Velocity 97.0 cm/s FINDINGS Left Ventricle Normal left ventricular size. LV systolic function is mildly reduced with EF of 40-45%. Mild global hypokinesis. Right Ventricle The right ventricle is normal in size and function. Right Atrium The right atrium is normal in size. RA pressure is elevated Left Atrium The left atrium is normal in size. Mitral Valve Structurally normal mitral valve without significant stenosis or prolapse. There is trace mitral regurgitation. Aortic Valve Aortic valve is thickened and calcified. No signficant stenosis. There is mild aortic regurgitation. Tricuspid Valve Structurally normal tricuspid valve without significant stenosis. Mild tricuspid regurgitation. RVSP is 35-40mmHg. This is consistent with mild pulmonary hypertension Pulmonic Valve Not well visualized Pericardium Normal pericardium without effusion. Aorta Normal ascending aorta dimension. IVC CONCLUSIONS LV systolic function is mildly reduced with EF of 40-45% Trace mitral regurgitation Aortic valve is thickened and calcified. No signficant stenosis. There is mild aortic regurgitation. Mild tricuspid regurgitation. Mild pulmonary hypertension No comparison studies are available Lakhwinder Olivo MD (Electronically Signed) Final Date: 26 April 2022 11:19 S
[2022-04-26] MEDS: vancomycin 1,000 MG in sodium chloride 0.9% 250 ML 250 MG IV (22:47)
[2022-04-26] MEDS: iohexol 350 mg/mL 100 mL Btl IV (23:33)
[2022-04-27] VITALS (14 sets, daily range): BP systolic 139–172; BP diastolic 77–102; PULSE 62–87; RESP 15–26; TEMP 36.3–36.9; O2SAT 90–92
[2022-04-27] MEDS: ALPRAZolam 0.5 mg Tablet 0.25 MG PO (00:15)
[2022-04-27] MEDS: sodium chlor 0.9% + KCl 20 mEq 20 MEQ/1,000 ML BAG 75 MEQ IV (00:18)
[2022-04-27] MEDS: piperacillin-tazobactam 3.375 GM in sodium chloride 0.9% (plus) 50 ML IV (02:55)
[2022-04-27 06:17] LABS: Basophils % 0.1 %; Hematocrit 30.9 % (42.0-52.0); Hemoglobin 10.9 g/dL (11.7-16.6); Lymphocytes # 0.8 10^3/uL (0.8-4.8); Lymphocytes % 7.5 %; Mean Corpuscular HGB Conc 35.3 g/dL (30.0-36.0); Mean Corpuscular Hemoglobin 29.5 pg (28.0-34.0); Mean Corpuscular Volume 83.7 fl (80-94); Mean Platelet Volume 10.1 fL (7.4-10.4); Monocytes # 0.6 10^3/uL (0.2-0.9); Monocytes % 5.9 %; Neutrophils # 8.45 10^3/uL (1.8-7.7); Neutrophils % 85.1 %; Nucleated Red Blood Cells % 0 %; Platelet Count 232 10^3/cmm (130-400); Red Blood Count 3.69 10^6/uL (4.1-5.3); Red Cell Distribution Width 12.7 % (12.1-15.1); White Blood Count 9.9 10^3/uL (4.0-10.0)
[2022-04-27] MEDS: heparin 5,000 unit/mL INJ 1 mL 5000 UNIT SUBCUT (06:25)
[2022-04-27 06:36] LABS: Blood Urea Nitrogen 19 mg/dL (8-23); Calcium 7.6 mg/dL (8.5-10.5); Carbon Dioxide 18 mmol/L (22-29); Chloride 108 mmol/L (98-107); Glucose 122 mg/dL (65-115); Osmolality Calculated 284 mOsm/kg (285-295); Sodium 135 mmol/L (136-145)
--- NOTE | 2022-04-27 07:10 | P.DS_ITS ---
Discharge Providers Date of Admission: 04/25/22 17:36 Date of Discharge: April 27, 2022 Attending Provider at Admission: Eric Mayo MD Attending Provider at Discharge: Eric Mayo MD Primary Care Provider: Jaymie Urbano Diagnoses at Discharge Discharge Diagnosis (1) Altered mental status: Status: Acute (2) Sepsis: Status: Acute (3) Pneumonia: Status: Acute (4) Acute respiratory failure with hypoxia: Status: Acute Reason for Visit Reason for Visit: AMS; SOB; FEVER Hospital Course Hospital Course 87-year-old male who recently had hernia repair surgery in [place] 2 weeks ago presented to the hospital chief complaint of altered mental status. He was diagnosed with sepsis related to hospital-acquired pneumonia because of recent hospitalization, initially he was requiring 15 L nonrebreather mask to keep his O2 saturation above 92%, he was very confused and disoriented, in the ER family told us about his DNR/DNI status, he was admitted to ICU for close monitoring, next few hours he made remarkable recovery, his mentation improved, we were able to discontinue his oxygen, he did well on room air, CTA chest ruled out PE, high D-dimer likely secondary to sepsis, echo showed EF 40 to 45%, no signs of fluid overload. Patient is eating and drinking on his own, communicating with his , no signs of encephalopathy at all. He does drink 1 can of beer daily at night, he was given thiamine and as needed Xanax for his anxiety. He will be discharged home after home O2 eval, his antihypertensive regimen needs to be readjusted. Of note, it seems like his hernia surgery has failed and he still has left inguinal hernia filled with bowel. No signs of incarceration or obstruction. Counseled family to go back to [place] in case of any complications related to hernia in future. There was concern for hematoma development however hemoglobin remained stable. His blood pressure also remained above 120s. No signs of tachycardia. At the time of discharge I will add Trelegy, short acting albuterol for his COPD, add Levaquin 7-day course, lisinopril 10 mg daily Physical Exam Narrative: Pleasant and cooperative Currently doing well on room air Euvolemic Abdomen soft Mild rhonchi at the base of the lungs Nonlabored breathing Nonfocal neuro exam Family at the bedside Discharge Data Studies Completed and Pending Completed Studies During Hospitalization Category Date Time Status CT cervical spin wo con* [id number] Stat Cat Scan 04/25/22 10:[address] chest abd pel w con* Stat Cat Scan 04/25/22 12:[address] head wo con* [id number] Stat Cat Scan 04/25/22 10:31 Completed CTA PE [CT angio chest PE protcl [id number]] Routine Cat Scan 04/26/22 07:41 Completed XR chest 1V portable [id number] Urgent Exams 04/25/22 10:25 Completed CV. echo complete* [id number] Routine Ultrasound 04/26/22 17:36 Completed US venous duplex lower extremity bilat [CV venous Ultrasound 04/26/22 07:41 [place] [id number]] Routine Pending at discharge Category Date Time Status Bacterial Antigen Routine Lab 04/25/22 17:36 Uncollected Blood Culture Stat Lab 04/25/22 12:48 Results Legionella Antigen STAT Routine Lab 04/25/22 17:36 Uncollected Sputum Culture and Gram Stain Routine Lab 04/25/22 17:36 Uncollected Urinalysis Stat Lab 04/25/22 10:25 Uncollected Vancomycin Trough Timed Lab 04/28/22 17:30 Ordered Radiology Impressions Chest X-Ray 04/25/22 10:25 IMPRESSION: No acute findings. Head CT 04/25/22 10:31 IMPRESSION: 1. No evidence of acute intracranial abnormality. No evidence of acute infarction, hemorrhage, or mass. 2. Atrophy and microvascular disease. Cervical Spine CT 04/25/22 10:52 IMPRESSION: 1. Loss of cervical lordosis. No evidence of fracture or dislocation. 2. Degenerative findings as described. Chest/Abdomen/Pelvis CT 04/25/22 12:12 IMPRESSION: 1. Posterior bilateral lower lobe parenchymal densities pneumonia and or atelectasis 2. Heavy coronary artery calcifications. 3. Dorsal spine osteoarthritis. IMPRESSION: 1. Hepatomegaly. 2. Sigmoid colon diverticulosis. 3. Large left inguinal hernia filled with bowel and fluid 4. Small gallstones. 5. Multiple calcified splenic granulomas Chest CTA 04/26/22 07:41 IMPRESSION: 1. No definite vascular intraluminal filling defects to suggest large or central acute pulmonary embolism. A small or peripheral PE cannot be excluded. 2. Upper lung zone and biapical centrilobular emphysema. 3. Bilateral posterior dependent and bibasilar atelectasis versus pneumonia and small posterior pleural effusions. 4. 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 5. Old granulomatous disease. Laboratory Results WBC 9.9 10^3/uL (4.0-10.0) 04/27/22 06:04 RBC 3.69 10^6/uL (4.1-5.3) L 04/27/22 06:04 Hgb 10.9 g/dL (11.7-16.6) L 04/27/22 06:04 Hct 30.9 % (42.0-52.0) L 04/27/22 06:04 MCV 83.7 fl (80-94) D 04/27/22 06:04 MCH 29.5 pg (28.0-34.0) 04/27/22 06:04 MCHC 35.3 g/dL (30.0-36.0) 04/27/22 06:04 RDW 12.7 % (12.1-15.1) 04/27/22 06:04 Plt Count 232 10^3/cmm (130-400) D 04/27/22 06:04 MPV 10.1 fL (7.4-10.4) 04/27/22 06:04 Neut % (Auto) 85.1 % 04/27/22 06:04 Lymph % (Auto) 7.5 % 04/27/22 06:04 [place] % (Auto) 5.9 % 04/27/22 06:04 Eos % (Auto) 0.0 % 04/27/22 06:04 Baso % (Auto) 0.1 % 04/27/22 06:04 Neut # (Auto) 8.45 10^3/uL (1.8-7.7) H 04/27/22 06:04 Lymph # (Auto) 0.8 10^3/uL (0.8-4.8) 04/27/22 06:04 [place] # (Auto) 0.6 10^3/uL (0.2-0.9) 04/27/22 06:04 Eos # (Auto) 0.0 10^3/uL (0.0-0.8) 04/27/22 06:04 Baso # (Auto) 0.0 10^3/uL (0.0-0.1) 04/27/22 06:04 Nucleated RBC % (auto) 0 % 04/27/22 06:04 Nucleated RBCs # 0.0 /100WBC 04/27/22 06:04 PT 15.40 SECONDS (12.1-14.9) H 04/25/22 10:51 INR 1.19 (0.8-1.2) 04/25/22 10:51 APTT 34.2 SECONDS (23.9-36.7) 04/25/22 10:51 D-Dimer 4.74 ug/mIFEU (0-0.59) H 04/25/22 10:51 Specimen Type Arterial 04/26/22 06:31 Sample Site Radial, right 04/26/22 06:31 ABG pH 7.39 (7.35-7.45) 04/26/22 06:31 ABG pCO2 31.7 mmHg (35-45) L 04/26/22 06:31 ABG pO2 58.9 mmHg (80.0-100.0) L 04/26/22 06:31 ABG HCO3 19.0 mmol/L (22-26) L 04/26/22 06:31 ABG Base Excess -5.2 mmol/L (-2.0-2.0) L 04/26/22 06:31 Jarad Test Pos 04/26/22 06:31 Hematocrit 31.9 % (42-52) L 04/26/22 06:31 O2 Delivery Device Room air 04/26/22 06:31 O2 Liters/Min 2.0 % 04/25/22 10:48 FiO2 21.0 % 04/26/22 06:31 Agriscience Instructor ID Ed 04/26/22 06:31 Sodium 135 mmol/L (136-145) L 04/27/22 06:04 Potassium 4.0 mmol/L (3.5-5.1) 04/27/22 06:04 Chloride 108 mmol/L (98-107) H 04/27/22 06:04 Carbon Dioxide 18 mmol/L (22-29) L 04/27/22 06:04 Anion Gap 13.0 (5-19) 04/27/22 06:04 BUN 19 mg/dL (8-23) 04/27/22 06:04 Creatinine 0.6 mg/dL (0.7-1.2) L 04/27/22 06:04 GFR Calculation Not Reportable 04/27/22 06:04 Glucose 122 mg/dL (65-115) H 04/27/22 06:04 POC Glucose 127 mg/dL (70-110) H 04/25/22 10:50 Calculated Osmolality 284 mOsm/kg (285-295) L 04/27/22 06:04 Lactic Acid 1.3 mmol/L (0.5-2.2) 04/25/22 10:51 Calcium 7.6 mg/dL (8.5-10.5) L 04/27/22 06:04 Magnesium 2.0 mg/dL (1.7-2.3) 04/26/22 11:00 Total Bilirubin 1.1 mg/dL (0.15-1.2) 04/25/22 10:51 AST 22 U/L (0-40) 04/25/22 10:51 ALT 10 U/L (0-41) 04/25/22 10:51 Alkaline Phosphatase 76 IU/L (40-130) 04/25/22 10:51 Ammonia 15 umol/L (16-60) L 04/25/22 10:51 Creatine Kinase 87 U/L (39-308) 04/25/22 10:51 Troponin T Baseline 12 ng/L (0-15) 04/25/22 10:51 Troponin T 120 Minute 10.72 ng/L (0-15) 04/25/22 12:48 Delta Troponin T -1.28 ABS# (0-10) L 04/25/22 12:48 Troponin T Hi Sens 6Hr 11.91 ng/L (0-15) 04/25/22 17:55 Troponin T Hi Sens 6Hr Delta -0.09 ng/L (0-12) L 04/25/22 17:55 C-Reactive Protein 207.2 mg/L (0.0-4.9) H 04/26/22 11:00 NT-Pro-B Natriuret Pep 1644 pg/mL (0-450) H 04/25/22 10:51 Total Protein 7.5 g/dL (6.6-8.7) 04/25/22 10:51 Albumin 3.7 g/dL (3.5-5.2) 04/25/22 10:51 Globulin 3.8 g/dL (1.3-4.6) 04/25/22 10:51 Vitamin B12 355 pg/mL (232-1245) 04/25/22 17:55 Procalcitonin 1.85 ng/mL (0-0.5) H 04/25/22 10:51 TSH 1.37 uIU/mL (0.27-4.20) 04/25/22 10:51 Ethyl Alcohol < 10 mg/dL (0-10) 04/25/22 17:55 Coronavirus 229E (PCR) Not detected (NOT DETECT) 04/25/22 11:19 SARS-CoV-2 (PCR) Not detected (NOT DETECT) 04/25/22 11:19 Vitals Last Vital Signs Temp 98.7 F 04/26/22 18:10 Pulse 77 04/27/22 06:00 Resp 19 H 04/27/22 06:00 BP 158/102 04/27/22 06:00 Pulse Ox 90 04/27/22 06:00 Discharge Plan Discharge Patient Disposition: Home Condition: Stable Prescriptions: New lisinopril 10 mg tablet 10 mg PO DAILY Qty: 60 1RF albuterol sulfate 90 mcg/actuation HFA aerosol inhaler 1 inh inhalation Q8H PRN (Reason: shortness of breath or wheezing) Qty: 8.5 2RF Trelegy Ellipta 100-62.5-25 mcg blister with device 1 inh inhalation DAILY Qty: 60 5RF levofloxacin 750 mg tablet 750 mg PO DAILY 7 Days Qty: 7 0RF Continued trazodone 50 mg tablet 50 - 150 mg PO BEDTIME PRN (Reason: Insomnia) 0RF tamsulosin 0.4 mg capsule 0.4 mg PO BID 0RF benzonatate 100 mg Capsule 100 mg PO TID PRN (Reason: Cough) Qty: 90 0RF albuterol sulfate [Ventolin HFA] 90 mcg/actuation Hfa Aerosol Inhaler 2 puff inhalation Q4H.RESPIRATORY PRN (Reason: Shortness Of Breath) Qty: 8.5 0RF acetaminophen 325 mg Tablet 650 mg PO Q6H PRN (Reason: Mild/Mod Pain Or Temp >/= 101) Qty: 30 0RF multivitamin Tablet 1 tab PO DAILY 0RF levothyroxine 100 mcg tablet 100 mcg PO DAILY 0RF levothyroxine 88 mcg tablet 88 mcg PO DAILY 0RF Discharge Orders: Discharge Order (Routine); Ordered 04/27/22 Ordered By: Eric Mayo Referrals: Jaymie Urbano [Primary Care Provider] - 1-3 days (Your follow up appointment with Jaymie Urbano is on April 29 at 10:00. Please call [phone] if you have any questions or concerns. Thank you.) Discharge Diet: Regular Discharge Activity: Increase activity as tolerated Patient Instructions: Lisinopril (By mouth) (Prinivil, Zestril), Albuterol (By breathing) (ProAir, AccuNeb, Proventil, Proventil..., Levofloxacin (By mouth) (Levaquin, Levaquin Leva-javi), Fluticasone/Umeclidinium/Vilanterol (By breathing) (Trelegy Ellipta), Opioid Safety Discharge Attestations Time Spent in Discharge Care*: less than 30 min Quality Metrics Clinical Quality Measures [ No reported AMI, CVA or VTE this stay] Coding Level of Care Code Acute [facility] DC note Diagnoses Altered mental status R41.82 Sepsis A41.9 Pneumonia J18.9 Acute respiratory failure with hypoxia J96.01
[2022-04-27] MEDS: levothyroxine 88 mcg Tablet PO (08:21)
[2022-04-27] MEDS: levothyroxine 100 mcg Tablet PO (08:22)
[2022-04-27] MEDS: nicotine 21 mg Patch 1 PATCH TRANSDERMA (08:22)
[2022-04-27] MEDS: lisinopril 10 mg Tablet PO (08:22)
[2022-04-27] MEDS: tamsulosin 0.4 mg Capsule PO (08:22)
[2022-04-27] MEDS: folic acid 1 mg Tablet PO (08:22)
--- NOTE | 2022-04-28 15:36 | PC.NURSE ---
Yris called to [facility] in [facility].
== END 2022-04-27 09:05 | disposition home or self-care (01) ==
LOC: ER 15:25 → ICU 17:16
PROVIDERS: Admitting Provider Internal Medicine; Emergency Provider Emergency Medicine; PCP Nurse Practitioner Family; Visit Provider Internal Medicine
DX: A41.9 Sepsis, unspecified organism (principal); R41.82 Altered mental status, unspecified; J18.9 Pneumonia, unspecified organism; J96.01 Acute respiratory failure with hypoxia; Z66 Do not resuscitate; E03.9 Hypothyroidism, unspecified; N40.0 Benign prostatic hyperplasia without lower urinary tract symptoms; F17.220 Nicotine dependence, chewing tobacco, uncomplicated; R60.9 Edema, unspecified; E87.1 Hypo-osmolality and hyponatremia
CPT/HCPCS: 36415; 36416; 36600; 70450; 71045; 71260; 71275; 72125; 74177; 80048; 80053; 80307; 82140; 82550; 82607; 82803; 82962; 83605; 83735; 83880; 84145; 84443; 84484; 85025; 85378; 85610; 85730; 86140; 87040; 87635; 87641; 93005; 93306; 93970; 94640; 96365; 96367; 96372; 97161; 97530; 99285; G0378; J0696; J1644; J2543; J2920; J3370; J3411; J3490; J7030; J7050; Q9967

== ENCOUNTER 2022-05-06 20:26 | Observation (INO) | payer MEDICARE, SELFPAY ==
[2022-05-06 20:32] VITALS: BMI 24.3
[2022-05-06 20:36] VITALS: PULSE 104; RESP 17; TEMP 37.2; O2SAT 96
--- NOTE | 2022-05-06 20:52 | XRR_ITS ---
PROCEDURE INFORMATION: Exam: XR Chest Exam date and time: 05/06/2022 9:00 PM Age: 87 years old Clinical indication: Fever TECHNIQUE: Imaging protocol: Radiologic exam of the chest. Views: 1 view. COMPARISON: CT chest abd pel w con* 04/25/2022 2:45 PM FINDINGS: Lungs: There are increased interstitial markings seen within the lower hemithoraces bilaterally, right slightly more prominent than left, findings that may represent bilateral interstitial pneumonia and or atelectasis. Pleural spaces: A few strandy opacities are seen in the left lung base most likely representing atelectasis versus pleural or parenchymal scarring. Heart/Mediastinum: Unremarkable. No cardiomegaly. Bones/joints: Unremarkable. XR/XR chest 1V portable [id number] IMPRESSION: 1. Increased interstitial markings seen in the mid lower hemithoraces bilaterally, findings may represent bilateral interstitial pneumonia and/or atelectasis. 2. Strandy opacities in the left lung base likely represents atelectasis versus pleural or parenchymal scarring.
--- NOTE | 2022-05-06 20:52 | ECG_ITS ---
[facility] Test Date: 2022-05-07 Pat Name: Pawel Baker Department: Room: 255 Gender: Male Dry Boss: : [id number] Requested By: Ida Wells Order Number: [id number] Mukesh MD: Lakhwinder Olivo M.D. Measurements Intervals [place] Rate: 84 P: 52 MI: 176 QRS: -24 QRSD: 121 T: 7 QT: 375 QTc: 446 Interpretive Statements SINUS RHYTHM BORDERLINE LEFT AXIS DEVIATION [QRS AXIS < -20] MODERATE INTRAVENTRICULAR CONDUCTION DELAY [110+ ms QRS DURATION] Compared to ECG 04/25/2022 17:46:09 No significant changes Electronically Signed On 05-07-2022 18:17:25 CDT by Lakhwinder Olivo M.D. [id number]
--- NOTE | 2022-05-06 21:47 | ED_ITS ---
HPI - Fever General: Chief Complaint: Fever Stated Complaint: pneumonia Time Seen by Provider: 05/06/22 20:51 Source: EMS Mode of arrival: EMS Limitations: altered mental status History of Present Illness: 87-year-old male is here from home with cough along with a fever. Patient had been admitted little over a week ago with a pneumonia he also had a hernia repair about a month ago. Patient here is c onfused he is able to tell me his name but does not know the date he does know where he lives but he does not know where he is currently. Per EMS patient was febrile in route. He said no vomiting no diarrhea denies any chest pain. Review of Systems General: Reports: ROS unobtainable due to mental status PFSH ED PFSH: Medical History COVID-19 vaccine dose not administered History of skin cancer Hypothyroidism Prostatic hypertrophy Surgical History History of cataract surgery History of skin surgery on penis for skin cancer Family History Denies family history of CAD (coronary artery disease) Social History Smoking and tobacco status: current every day smoker smokeless tobacco Smokeless tobacco user: chewing tobacco Smokeless tobacco details: daily Alcohol intake: current Alcohol intake frequency: holidays/special occasions only Alcohol type: beer Household members: spouse Marital status: Course Vital Signs: Vital signs: Vital Signs Temperature 101 F H 05/06/22 22:40 Pulse Rate 104 H 05/06/22 20:36 Respiratory Rate 17 05/06/22 20:36 Pulse Oximetry 96 05/06/22 20:36 MDM - Fever Medical Decision Making Patient presents here with fever he had a temperature 101 here recently and pneumonia x-ray looks like a worsening pneumonia does have a slight leukocytosis his blood pressure here has been stable I spoke to hospitalist will admit for IV antibiotics for his pneumonia. Lab Data : 05/06/22 23:28 05/06/22 23:28 Radiology Impressions Chest X-Ray 05/06/22 20:52 IMPRESSION: 1. Increased interstitial markings seen in the mid lower hemithoraces bilaterally, findings may represent bilateral interstitial pneumonia and/or atelectasis. 2. Strandy opacities in the left lung base likely represents atelectasis versus pleural or parenchymal scarring. Abdomen/Pelvis CT 05/06/22 21:49 IMPRESSION: 1. There is a stable left inguinal hernia present containing fluid. 2. Diverticulosis of the sigmoid colon 3. Multiple small gallstones 4. Small left pleural effusion 5. Calcified pleural plaques seen left posterior hemithorax 6. Probable bilateral basilar atelectasis although superimposed pneumonia cannot be excluded. Laboratory Results WBC 14.0 10^3/uL (4.0-10.0) H 05/06/22 23:28 RBC 3.24 10^6/uL (4.1-5.3) L 05/06/22 23:28 Hgb 9.7 g/dL (11.7-16.6) L 05/06/22 23:28 Hct 26.9 % (42.0-52.0) L 05/06/22 23:28 MCV 83.0 fl (80-94) 05/06/22 23:28 MCH 29.9 pg (28.0-34.0) 05/06/22 23:28 MCHC 36.1 g/dL (30.0-36.0) H 05/06/22 23:28 RDW 13.4 % (12.1-15.1) 05/06/22 23:28 Plt Count 217 10^3/cmm (130-400) 05/06/22 23:28 MPV 9.8 fL (7.4-10.4) 05/06/22 23:28 Neut % (Auto) 76.1 % 05/06/22 23:28 Lymph % (Auto) 8.8 % 05/06/22 23:28 [place] % (Auto) 14.0 % 05/06/22 23:28 Eos % (Auto) 0.0 % 05/06/22 23: Baso % (Auto) 0.1 % 05/06/22 23:28 Neut # (Auto) 10.63 10^3/uL (1.8-7.7) H 05/06/22 23:28 Lymph # (Auto) 1.2 10^3/uL (0.8-4.8) 05/06/22 23:28 [place] # (Auto) 2.0 10^3/uL (0.2-0.9) H 05/06/22 23:28 Eos # (Auto) 0.0 10^3/uL (0.0-0.8) 05/06/22 23:28 Baso # (Auto) 0.0 10^3/uL (0.0-0.1) 05/06/22 23:28 Nucleated RBC % (auto) 0 % 05/06/22 23: Nucleated RBCs # 0.0 /100WBC 05/06/22 23:28 Sodium 132 mmol/L (136-145) L 05/06/22 23:28 Potassium 3.5 mmol/L (3.5-5.1) 05/06/22 23: Chloride 99 mmol/L (98-107) 05/06/22 23: Carbon Dioxide 21 mmol/L (22-29) L 05/06/22 23:28 Anion Gap 15.5 (5-19) 05/06/22 23:28 BUN 11 mg/dL (8-23) 05/06/22 23:28 Creatinine 0.7 mg/dL (0.7-1.2) 05/06/22 23:28 GFR Calculation Not Reportable 05/06/22 23: Glucose 107 mg/dL (65-115) 05/06/22 23:28 Calculated Osmolality 274 mOsm/kg (285-295) L 05/06/22 23:28 Lactic Acid 0.6 mmol/L (0.5-2.2) 05/06/22 23: Calcium 7.8 mg/dL (8.5-10.5) L 05/06/22 23:28 Total Bilirubin 0.9 mg/dL (0.15-1.2) 05/06/22 23:28 AST 20 U/L (0-40) 05/06/22 23:28 ALT 16 U/L (0-41) 05/06/22 23:28 Alkaline Phosphatase 64 IU/L (40-130) 05/06/22 23:28 Total Protein 6.2 g/dL (6.6-8.7) L 05/06/22 23:28 Albumin 2.8 g/dL (3.5-5.2) L 05/06/22 23:28 Globulin 3.4 g/dL (1.3-4.6) 05/06/22 23:28 Discharge Plan Discharge Patient Disposition: Admitted As Inpatient Clinical Impression: Community acquired pneumonia Condition: Stable Coding Level of Care Code ED [employer] Dispatcher for Andrews Carson
--- NOTE | 2022-05-06 21:49 | CTR_ITS ---
PROCEDURE INFORMATION: Exam: CT Abdomen And Pelvis Without Contrast Exam date and time: 05/06/2022 10:16 PM Age: 87 years old Clinical indication: Abdominal pain; Generalized; Prior surgery; Surgery date: <1 month; Surgery type: Hernia repair surgery 04/14/22; Additional info: Abd pain TECHNIQUE: Imaging protocol: Computed tomography of the abdomen and pelvis without contrast. Radiation optimization: All CT scans at this facility use at least one of these dose optimization techniques: automated exposure control; mA and/or kV adjustment per patient size (includes targeted exams where dose is matched to clinical indication); or iterative reconstruction. COMPARISON: CT chest abd pel w con* 04/25/2022 2:45 PM RADIATION DOSE METRICS: Total DLP (mGy-cm): 1192.93 FINDINGS: Lungs: There are strandy and hazy opacities present in the lung bases bilaterally likely representing dependent atelectasis. Superimposed infiltrates and pneumonia cannot be entirely excluded. Pleural spaces: There is a small left pleural effusion. A calcified pleural plaque is seen within the left posterior hemithorax. Heart: Calcifications are seen in the LAD. Liver: Normal. No mass. Gallbladder and bile ducts: Hyperdensities are seen in the dependent portion of the gallbladder compatible with tiny gallstones. Pancreas: Normal. No ductal dilation. Spleen: Numerous calcifications are seen in the spleen compatible with calcified granulomas. Adrenal glands: Normal. No mass. Kidneys and ureters: Strandy opacities are present in the perinephric fascia bilaterally likely representing chronic scarring. Stomach and bowel: Diverticula are present the sigmoid colon. There are no inflammatory changes present to suggest diverticulitis. Appendix: No evidence of appendicitis. Intraperitoneal space: Unremarkable. No free air. No significant fluid collection. Vasculature: Calcifications are seen in the thoracic and abdominal aorta, iliac arteries and femoral arteries bilaterally and branches of the celiac and superior mesenteric arteries. Lymph nodes: Unremarkable. No enlarged lymph nodes. Urinary bladder: Unremarkable as visualized. Reproductive: Unremarkable as visualized. Bones/joints: Unremarkable. No acute fracture. Soft tissues: There is a left inguinal hernia containing some fluid. This appears stable compared with 04/25/2022. CT/CT abdomen pelvis wo con [id number] IMPRESSION: 1. There is a stable left inguinal hernia present containing fluid. 2. Diverticulosis of the sigmoid colon 3. Multiple small gallstones 4. Small left pleural effusion 5. Calcified pleural plaques seen left posterior hemithorax 6. Probable bilateral basilar atelectasis although superimposed pneumonia cannot be excluded.
[2022-05-06 22:40] VITALS: TEMP 38.3
[2022-05-06] MEDS: sodium chloride 0.9% 1,000 ML 999 ML IV (22:55)
[2022-05-06] MEDS: cefTRIAXone 1,000 MG in sodium chloride 0.9% (plus) 50 ML 100 MG IV (22:55)
[2022-05-06] MEDS: acetaminophen 500 mg Tablet 1000 MG PO (22:56)
[2022-05-06 23:00] VITALS: BP 120/62; PULSE 94; RESP 17; TEMP 37.2; O2SAT 96
[2022-05-06 23:40] LABS: Basophils % 0.1 %; Hematocrit 26.9 % (42.0-52.0); Hemoglobin 9.7 g/dL (11.7-16.6); Lymphocytes # 1.2 10^3/uL (0.8-4.8); Lymphocytes % 8.8 %; Mean Corpuscular HGB Conc 36.1 g/dL (30.0-36.0); Mean Corpuscular Hemoglobin 29.9 pg (28.0-34.0); Mean Platelet Volume 9.8 fL (7.4-10.4); Neutrophils # 10.63 10^3/uL (1.8-7.7); Neutrophils % 76.1 %; Nucleated Red Blood Cells % 0 %; Platelet Count 217 10^3/cmm (130-400); Red Blood Count 3.24 10^6/uL (4.1-5.3); Red Cell Distribution Width 13.4 % (12.1-15.1)
[2022-05-06 23:55] LABS: Lactic Sepsis W/Reflex 0.6 mmol/L (0.5-2.2)
[2022-05-06 23:56] LABS: Alanine Aminotransferase 16 U/L (0-41); Albumin Level 2.8 g/dL (3.5-5.2); Alkaline Phosphatase 64 IU/L (40-130); Anion Gap 15.5 (5-19); Aspartate Amino Transferase 20 U/L (0-40); Blood Urea Nitrogen 11 mg/dL (8-23); Calcium 7.8 mg/dL (8.5-10.5); Carbon Dioxide 21 mmol/L (22-29); Chloride 99 mmol/L (98-107); Globulin 3.4 g/dL (1.3-4.6); Glucose 107 mg/dL (65-115); Osmolality Calculated 274 mOsm/kg (285-295); Potassium 3.5 mmol/L (3.5-5.1); Sodium 132 mmol/L (136-145); Total Bilirubin 0.9 mg/dL (0.15-1.2); Total Protein 6.2 g/dL (6.6-8.7)
[2022-05-07] VITALS (11 sets, daily range): BP systolic 110–170; BP diastolic 64–77; PULSE 83–93; RESP 16–19; TEMP 36.4–37.2; O2SAT 90–96; BMI 22.8
[2022-05-07] MEDS: azithromycin 500 MG in sodium chloride 0.9% 250 ML 250 MG IV ×2 (00:09→12:33)
--- NOTE | 2022-05-07 01:01 | PM.HP ---
Providers/Chief Complaint Primary Care Provider: Jaymie Urbano Chief Complaint: pneumonia History of Present Illness 87-year-old gentleman with coronary care but a month ago, subsequent with admission for hospital-acquired pneumonia in [place] at [facility], then admitted here for pneumonia -03/2028, treated with Zosyn, vancomycin, discharged with Levaquin to complete the course which she reportedly has finished, was brought back to the hospital due to fever, confusion. Here noted febrile 101 Fahrenheit, with leukocytosis 14,000, predominantly neutrophilic with elevated monocytes. Was disoriented during ER visit, during my visit he is currently asleep, history obtained from his reports that he has been confused. Normally is not confused, but does generally have difficult time with ambulating. Needs significant assistance. She states they were considering trying get some physical therapy for him but could not get it arranged. She denies that she coughs with eating or drinking. denies that he has been having any abdominal pain. He was assessed with CT abdomen pelvis which showed stable left inguinal hernia containing fluid, diverticulosis of sigmoid colon, multiple small gallstones, small right pleural effusion. Calcified pleural plaques seen left posterior hemithorax. Bilateral basilar atelectasis, possible pneumonia. Review of Systems General: Reports: ROS unobtainable due to mental status Medications/Allergies Home Medications Medication Instructions Recorded Confirmed Last Taken Type acetaminophen 325 mg tablet 650 mg PO Q6H PRN #30 tab 06/19/21 04/25/22 Unknown Rx albuterol sulfate 90 mcg/actuation 2 puff INHALATION Q4H.RESPIRATORY 06/19/21 04/25/22 Unknown Rx aerosol inhaler (Ventolin HFA) PRN #8.5 g benzonatate 100 mg capsule 100 mg PO TID PRN #90 cap 06/19/21 04/25/22 Unknown Rx tamsulosin 0.4 mg capsule 0.4 mg PO BID 06/19/21 04/25/22 04/24/22 History trazodone 50 mg tablet 50 - 150 mg PO BEDTIME PRN 06/19/21 04/25/22 Unknown History levothyroxine 100 mcg tablet 100 mcg PO DAILY 04/25/22 04/25/22 04/24/22 History levothyroxine 88 mcg tablet 88 mcg PO DAILY 04/25/22 04/25/22 04/24/22 History multivitamin 1 tab PO DAILY 04/25/22 04/25/22 04/24/22 History albuterol sulfate 90 mcg/actuation 1 inh INHALATION Q8H PRN #8.5 g 04/27/22 Unknown Rx aerosol inhaler fluticasone fur. 100 mcg-umeclid 1 inh INHALATION DAILY #60 ea 04/27/22 Unknown Rx 62.5 mcg-vilant 25 mcg inhalat.powder (Trelegy Ellipta) lisinopril 10 mg tablet 10 mg PO DAILY #60 tab 04/27/22 Unknown Rx Allergies Allergy/AdvReac Type Severity Reaction Status Date / Time No Known Allergies Allergy Verified 06/18/21 19:45 PFSH Acute PFSH: Medical History COVID-19 vaccine dose not administered History of skin cancer Hypothyroidism Prostatic hypertrophy Surgical History History of cataract surgery History of skin surgery on penis for skin cancer Family History Denies family history of CAD (coronary artery disease) Social History Smoking and tobacco status: current every day smoker smokeless tobacco Smokeless tobacco user: chewing tobacco Smokeless tobacco details: daily Alcohol intake: current Alcohol intake frequency: holidays/special occasions only Alcohol type: beer Household members: spouse Marital status: Vitals/I&O/Wt Last Vital Signs Temp 101 F H 05/06/22 22:40 Pulse 104 H 05/06/22 20:36 Resp 17 05/06/22 20:36 Pulse Ox 96 05/06/22 20:36 05/06/22 05/06/22 05/07/22 14:59 22:59 06:59 Intake Total 50 / 50 Balance 50 / 50 Weight last 48 hrs Weight 88.451 kg Physical Exam Narrative: at bedside Const: GENERAL APPEARANCE: cooperative ORIENTATION/CONSCIOUSNESS: Yes lethargic HENMT: COMMON NORMALS: normocephalic, EAC's normal, Normal external nose present and moist oral mucous membranes HEAD & SCALP: normocephalic NOSE: Normal external nose present EXTERNAL AUDITORY CANAL: EAC's normal Chest: CHEST: Yes Symmetrical chest wall rise Resp: AUSCULTATION: rhonchi Cardio: COMMON NORMALS: regular rate, regular rhythm and No murmurs present (Cardio) RATE: regular rate RHYTHM: regular rhythm GI: COMMON NORMALS: Normal to inspection, nondistended, normoactive bowel sounds present, Soft to palpation and non-tender PALPATION: Yes Soft to palpation Extremity: COMMON NORMALS: no pedal edema Neuro: COMMON NORMALS: moves all extremities SENSORIUM/ORIENTATION: Yes alert MENINGEAL SIGNS: Yes no meningeal signs Psych: COMMON NORMALS: mental status grossly normal Skin: COMMON NORMALS: no wounds RASHES: no rashes Data : 05/06/22 23:28 05/06/22 23:28 Micro: Microbiology 05/06/22 23:33 Blood Culture - Preliminary Blood SPECIMEN COLLECTED 05/06/22 23:28 Blood Culture - Preliminary Blood SPECIMEN COLLECTED A&P Assessment and plan (1) Hospital-acquired pneumonia: Several recent admissions during which was treated for pneumonia, including at [facility], subsequently here at the end of March, apparently had completed Levaquin antibiotic course postdischarge. Now returning with fever, confusion, persistent infiltrates in lower lungs. Empiric antibiotic coverage with Zosyn, vancomycin. Obtain sputum culture if will provide, otherwise consider assessment by pulmonology, bronchoscopy to obtain BAL samples given recently recurrent/persistent pneumonia. Currently requiring 4 L nasal cannula oxygen to maintain saturation. Not previously on oxygen per his , she thought perhaps she could benefit from some. Less likely PE. Recently had CTA during prior hospitalization 04/26 which did not show definitive large PE. Status: Acute (2) Acute encephalopathy: Acute metabolic encephalopathy with pneumonia. denies underlying dementia. Treat infection as above. Reorient, mobilize. OT, PT. Status: Acute (3) Sepsis: With leukocytosis 14,000, fever 101 Fahrenheit. Tachycardia 104. Lactic acid 0.6. With acute encephalopathy. Pulmonary source, treat as above. Will obtain UA as well. Status: Acute (4) Physical deconditioning: His states he has been doing quite significant assistance with getting up to walk. She is not sure why. She denies that he has history of dementia. Denies severe osteoarthritis. Has had multiple hospitalizations recently. She states that they have tried to arrange for therapy for him but could not. PT, OT assessment. Case management assessment. Status: Acute Plan Hernia repair 1 month ago at [facility]: Was assessed with CT abdomen pelvis in ER with stable left inguinal hernia containing fluid. Abdomen is soft, nontender. Hypothyroidism BPH Attestations Medical Necessity Statement*: Admission of over 2 midnights is anticipated for assessment of management of recurrent hospital-acquired pneumonia, acute encephalopathy, sepsis. Coding Level of Care Code Acute Fish Tender for [facility] Fwd Exam Comprehensive Diagnoses Hospital-acquired pneumonia J18.9; Y95 Acute encephalopathy G93.40 Sepsis A41.9 Physical deconditioning R53.81
--- NOTE | 2022-05-07 02:33 | PC.PHAR ---
Vancomycin is dosed at 1500mg IVPB every 12 hours to produce a predicted trough level of 15.72 (population based pharmacokinetic analysis). A trough level has been ordered from the lab to be obtained before the fourth dose to confirm and adjust if needed.
[2022-05-07] MEDS: vancomycin 1,500 MG/300 ML PIGGYBACK 150 MG IV ×2 (02:45→16:22)
[2022-05-07] MEDS: heparin 5,000 unit/mL INJ 1 mL 5000 UNIT SUBCUT ×2 (02:45→11:15)
[2022-05-07] MEDS: piperacillin-tazobactam 3.375 GM in sodium chloride 0.9% (plus) 50 ML IV ×3 (04:43→20:20)
[2022-05-07] MEDS: levothyroxine 100 mcg Tablet PO (11:15)
[2022-05-07] MEDS: tamsulosin 0.4 mg Capsule PO ×2 (11:15→18:40)
[2022-05-07] MEDS: levothyroxine 88 mcg Tablet PO (11:15)
--- NOTE | 2022-05-07 11:36 | PM.PN ---
Subjective Subjective: Patient was seen and examined this morning, currently he is alert awake oriented, not in acute distress, Denies any chest pain shortness of breath nausea vomiting headache fever, history was also provided by , who states that she brought her to the hospital because he was having fever at home, noted T-max at home was 103, he is also having minimal cough with minimal sputum production. Noted T-max 101. Medications: Medication Review Details: Generic Name Dose Route Start Last Admin Trade Name Jordan PRN Reason Stop Dose Admin Heparin Sodium (Po rcine) 5,000 unit 05/07/22 02:12 05/07/22 11:15 Heparin 5,000 Un it/Ml Inj 1 Ml SUBCUT 5,000 unit Q8H TOMA Administration Piperacillin Sod/T azobactam 50 mls @ 12.5 mls /hr 05/07/22 02:12 05/07/22 04:43 Sod 3.375 gm/ So dium Chloride IV 12.5 mls/hr Q8H TOMA Administration Protocol Vancomycin/PEG/NAD A/Lysine/Water 1,500 mg in 300 m ls @ 150 mls/hr 05/07/22 03:00 05/07/22 04:44 Vancocin IV Infused Q12H TOMA Infusion Levothyroxine Sodi um 100 mcg 05/07/22 09:00 05/07/22 11:15 Levothyroxine 10 0 Mcg Tablet PO 100 mcg DAILY TOMA Administration Levothyroxine Sodi um 88 mcg 05/07/22 09:00 05/07/22 11:15 Levothyroxine 88 Mcg Tablet PO 88 mcg DAILY TMOA Administration Tamsulosin HCl 0.4 mg 05/07/22 09:00 05/07/22 11:15 Tamsulosin 0.4 M g Capsule PO 0.4 mg BID TOMA Administration Vitals/I&O/Wt Last Vital Signs Temp 98.1 F 05/07/22 07:59 Pulse 90 05/07/22 08:00 Resp 16 05/07/22 08:00 BP 154/76 05/07/22 07:59 Pulse Ox 93 05/07/22 08:00 05/06/22 05/07/22 05/07/22 22:59 06:59 14:59 Intake Total 1600 / 1600 Output Total 0 / 0 Balance 1600 / 1600 Weight last 48 hrs Weight 82.781 kg Weight 82.781 kg Weight 88.451 kg Physical Exam Const: COMMON NORMALS: patient oriented x3 HENMT: COMMON NORMALS: normocephalic and atraumatic HEAD & SCALP: normocephalic and atraumatic Resp: COMMON NORMALS: normal respiratory effort and clear to auscultation bilaterally AUSCULTATION: clear to auscultation bilaterally Cardio: COMMON NORMALS: regular rate, regular rhythm, S1 normal heart sound present, S2 normal heart sound present, No gallops present (Cardio), No murmurs present (Cardio), No rub (Cardio) and Peripheral pulses 2+ throughout RATE: regular rate RHYTHM: regular rhythm HEART SOUNDS: S1 normal heart sound present and S2 normal heart sound present PERIPHERAL PULSES: Peripheral pulses 2+ throughout GI: COMMON NORMALS: Normal to inspection, nondistended, normoactive bowel sounds present, Soft to palpation, non-tender, No hepatosplenomegaly present and no masses AUSCULTATION: Yes normoactive bowel sounds PALPATION: Yes Soft to palpation and Yes No hepatosplenomegaly present RECTAL EXAM: Yes deferred Extremity: COMMON NORMALS: no clubbing, cyanosis or edema and no pedal edema Neuro: COMMON NORMALS: patient oriented x3 Data : 05/06/22 23:28 05/06/22 23:28 Micro: Microbiology 05/06/22 23:33 Blood Culture - Preliminary Blood SPECIMEN COLLECTED 05/06/22 23:28 Blood Culture - Preliminary Blood SPECIMEN COLLECTED A&P Assessment and plan (1) Hospital-acquired pneumonia: Several recent admissions during which was treated for pneumonia, including at [facility], subsequently here at the end of March, apparently had completed Levaquin antibiotic course postdischarge. Now returning with fever, confusion, persistent infiltrates in lower lungs. Empiric antibiotic coverage with Zosyn, vancomycin. Obtain sputum culture if will provide, otherwise consider assessment by pulmonology, bronchoscopy to obtain BAL samples given recently recurrent/persistent pneumonia. Currently requiring 4 L nasal cannula oxygen to maintain saturation. Not previously on oxygen per his , she thought perhaps she could benefit from some. Less likely PE. Recently had CTA during prior hospitalization 04/26 which did not show definitive large PE. Status: Acute (2) Acute encephalopathy: Acute metabolic encephalopathy with pneumonia. denies underlying dementia. Treat infection as above. Reorient, mobilize. OT, PT. Status: Acute (3) Sepsis: With leukocytosis 14,000, fever 101 Fahrenheit. Tachycardia 104. Lactic acid 0.6. With acute encephalopathy. Pulmonary source, treat as above. Will obtain UA as well. Status: Acute (4) Physical deconditioning: His states he has been doing quite significant assistance with getting up to walk. She is not sure why. She denies that he has history of dementia. Denies severe osteoarthritis. Has had multiple hospitalizations recently. She states that they have tried to arrange for therapy for him but could not. PT, OT assessment. Case management assessment. Status: Acute Plan 87-year-old male with past medical history of hypothyroidism BPH, recent hernia repair, recently discharged from hospital on April 27 after being managed for pneumonia, discharged on oral levofloxacin, came in today with chief complaint of fever and confusion at home, as well as minimal cough with some sputum. Assessment: Hospital-acquired pneumonia Sepsis secondary pneumonia Acute metabolic encephalopathy Hypothyroidism Plan: X-ray chest: Suggestive of increased interstitial marking in mid to lower hemithorax, suspicious for interstitial pneumonia. CT abdomen pelvis wo con?: No acute findings Blood culture: Urine culture Lactic acid 0.6 Procalcitonin: MRSA PCR Urine Legionella antigen Bacterial antigen panel Recent 2D echo: LV systolic function is mildly reduced with EF of 40-45% ?Trace mitral regurgitation Aortic valve is thickened and calcified. No signficant stenosis.? There is mild aortic regurgitation.? Mild tricuspid regurgitation. Mild pulmonary hypertension. Blood culture during recent hospital stay have been negative. Continue Vanco and Zosyn for now, add azithromycin for atypical coverage given interstitial findings Continue levothyroxine for now CODE STATUS: Limited resuscitation DVT prophylaxis: On Lovenox Attestations Medical Necessity Statement*: Patient is still in hospital management of sepsis secondary pneumonia Time Spent in Patient Care: Greater than 35 minutes (>than 50% of time spent in counselling and/or direct pt care on unit). Coding Level of Care Code Acute Manager Interface for [facility] Diagnoses Hospital-acquired pneumonia J18.9; Y95 Acute encephalopathy G93.40 Sepsis A41.9 Physical deconditioning R53.81
--- NOTE | 2022-05-07 18:16 | PC.NURSE ---
Notified Dr. Long of patient pulling IV out part way which caused infiltration of IV while running Vancomycin
[2022-05-08] VITALS (7 sets, daily range): BP systolic 124–159; BP diastolic 64–83; PULSE 78–86; RESP 16–18; TEMP 36.6–37.2; O2SAT 91–95
--- NOTE | 2022-05-08 00:31 | PC.NURSE ---
Addendum entered by Guillermina Liu RN 05/08/22 00:41: Error- incorrect pt Original Note: Pt noted to be resting with eyes closed in bed after haldol administration. Dr. Banegas made aware of no one on one available at this time. Bed alarm remains activated. Pt close to nurse's station and staff aware of fall risk.
[2022-05-08] MEDS: vancomycin 1,500 MG/300 ML PIGGYBACK 150 MG IV ×2 (03:00→17:44)
[2022-05-08] MEDS: piperacillin-tazobactam 3.375 GM in sodium chloride 0.9% (plus) 50 ML IV ×3 (05:07→20:06)
[2022-05-08 05:09] LABS: Basophils % 0.2 %; Eosinophils % 0.4 %; Hematocrit 28.1 % (42.0-52.0); Hemoglobin 9.1 g/dL (11.7-16.6); Lymphocytes # 1.4 10^3/uL (0.8-4.8); Lymphocytes % 17.8 %; Mean Corpuscular HGB Conc 32.4 g/dL (30.0-36.0); Mean Corpuscular Hemoglobin 29.4 pg (28.0-34.0); Mean Corpuscular Volume 90.6 fl (80-94); Mean Platelet Volume 9.9 fL (7.4-10.4); Monocytes # 1.3 10^3/uL (0.2-0.9); Monocytes % 15.5 %; Neutrophils # 5.25 10^3/uL (1.8-7.7); Nucleated Red Blood Cells % 0 %; Platelet Count 206 10^3/cmm (130-400); Red Cell Distribution Width 13.6 % (12.1-15.1); White Blood Count 8.1 10^3/uL (4.0-10.0)
[2022-05-08 05:40] LABS: Procalcitonin 0.26 ng/mL (0-0.5)
[2022-05-08 05:52] LABS: Alanine Aminotransferase 12 U/L (0-41); Albumin Level 2.4 g/dL (3.5-5.2); Alkaline Phosphatase 57 IU/L (40-130); Anion Gap 15.4 (5-19); Aspartate Amino Transferase 20 U/L (0-40); Blood Urea Nitrogen 12 mg/dL (8-23); Calcium 7.7 mg/dL (8.5-10.5); Carbon Dioxide 19 mmol/L (22-29); Chloride 103 mmol/L (98-107); Globulin 3.3 g/dL (1.3-4.6); Glucose 85 mg/dL (65-115); Osmolality Calculated 277 mOsm/kg (285-295); Potassium 3.4 mmol/L (3.5-5.1); Sodium 134 mmol/L (136-145); Total Bilirubin 0.5 mg/dL (0.15-1.2); Total Protein 5.7 g/dL (6.6-8.7)
[2022-05-08] MEDS: levothyroxine 88 mcg Tablet PO (09:29)
[2022-05-08] MEDS: enoxaparin 40 mg/0.4 mL Syringe SUBCUT (09:29)
[2022-05-08] MEDS: tamsulosin 0.4 mg Capsule PO ×2 (09:29→17:44)
[2022-05-08] MEDS: levothyroxine 100 mcg Tablet PO (09:29)
[2022-05-08] MEDS: sodium chloride 0.9% 500 ML 999 ML IV (11:02)
[2022-05-08] MEDS: azithromycin 500 MG in sodium chloride 0.9% 250 ML 250 MG IV (12:31)
--- NOTE | 2022-05-08 14:12 | PM.PN ---
Subjective Subjective: Patient was seen and examined this morning, no acute events overnight, continues to be afebrile Blood cultures have remained negative so far, MRSA PCR is pending, his other vitals and labs have been reviewed. Medications: Medication Review Details: Generic Name Dose Route Start Last Admin Trade Name Jordan PRN Reason Stop Dose Admin Enoxaparin Sodium 40 mg 05/08/22 09:00 05/08/22 09:29 Enoxaparin 40 Mg /0.4 Ml Syringe SUBCUT 40 mg Q24H TOMA Administration Piperacillin Sod/T azobactam 50 mls @ 12.5 mls /hr 05/07/22 02:12 05/08/22 05:07 Sod 3.375 gm/ So dium Chloride IV 12.5 mls/hr Q8H TOMA Administration Protocol Vancomycin/PEG/NAD A/Lysine/Water 1,500 mg in 300 m ls @ 150 mls/hr 05/07/22 03:00 05/08/22 05:08 Vancocin IV Infused Q12H TOMA Infusion Azithromycin 500 m g/ Sodium 250 mls @ 250 mls /hr 05/07/22 12:00 05/08/22 12:31 Chloride IV 250 mls/hr Q24H TOMA Administration Protocol Levothyroxine Sodi um 100 mcg 05/07/22 09:00 05/08/22 09:29 Levothyroxine 10 0 Mcg Tablet PO 100 mcg DAILY TOMA Administration Levothyroxine Sodi um 88 mcg 05/07/22 09:00 05/08/22 09:29 Levothyroxine 88 Mcg Tablet PO 88 mcg DAILY TOMA Administration Non-Formulary Medi cation 1 inh 05/07/22 09:00 05/08/22 11:02 Fluticasone-Umec lidin-Vilanter [Tr elegy Ellipta] INHALATION Not Given DAILY TOMA Tamsulosin HCl 0.4 mg 05/07/22 09:00 05/08/22 09:29 Tamsulosin 0.4 M g Capsule PO 0.4 mg BID TOMA Administration Vitals/I&O/Wt Last Vital Signs Temp 98.2 F 05/08/22 11:25 Pulse 80 05/08/22 11:25 Resp 18 05/08/22 11:25 BP 157/73 05/08/22 11:25 Pulse Ox 91 05/08/22 11:25 05/07/22 05/08/22 05/08/22 22:59 06:59 14:59 Intake Total 720 / 1010 350 / 1360 580 / 580 Output Total Balance 695 / 985 350 / 1335 580 / 580 Weight last 48 hrs Weight 82.781 kg Weight 82.781 kg Weight 88.451 kg Physical Exam Const: COMMON NORMALS: patient oriented x3 HENMT: COMMON NORMALS: normocephalic and atraumatic HEAD & SCALP: normocephalic and atraumatic Resp: COMMON NORMALS: normal respiratory effort and clear to auscultation bilaterally EFFORT & INSPECTION: Yes symmetric chest movement AUSCULTATION: clear to auscultation bilaterally Cardio: COMMON NORMALS: regular rate, regular rhythm, S1 normal heart sound present, S2 normal heart sound present, No gallops present (Cardio), No murmurs present (Cardio), No rub (Cardio) and Peripheral pulses 2+ throughout RATE: regular rate RHYTHM: regular rhythm HEART SOUNDS: S1 normal heart sound present and S2 normal heart sound present PERIPHERAL PULSES: Peripheral pulses 2+ throughout GI: COMMON NORMALS: Normal to inspection, nondistended, normoactive bowel sounds present, Soft to palpation, non-tender, No hepatosplenomegaly present and no masses AUSCULTATION: Yes normoactive bowel sounds PALPATION: Yes Soft to palpation and Yes No hepatosplenomegaly present RECTAL EXAM: Yes deferred Extremity: COMMON NORMALS: no clubbing, cyanosis or edema and no pedal edema Neuro: COMMON NORMALS: patient oriented x3 Data : 05/08/22 04:44 05/08/22 04:44 Micro: Microbiology 05/08/22 03:15 Legionella Urinary Antigen - Final Urine,Voided 05/06/22 23:33 Blood Culture - Preliminary Blood NEGATIVE TO DATE 05/06/22 23:28 Blood Culture - Preliminary Blood NEGATIVE TO DATE A&P Assessment and plan (1) Hospital-acquired pneumonia: Several recent admissions during which was treated for pneumonia, including at [facility], subsequently here at the end of March, apparently had completed Levaquin antibiotic course postdischarge. Now returning with fever, confusion, persistent infiltrates in lower lungs. Empiric antibiotic coverage with Zosyn, vancomycin. Obtain sputum culture if will provide, otherwise consider assessment by pulmonology, bronchoscopy to obtain BAL samples given recently recurrent/persistent pneumonia. Currently requiring 4 L nasal cannula oxygen to maintain saturation. Not previously on oxygen per his , she thought perhaps she could benefit from some. Less likely PE. Recently had CTA during prior hospitalization 04/26 which did not show definitive large PE. Status: Acute (2) Acute encephalopathy: Acute metabolic encephalopathy with pneumonia. denies underlying dementia. Treat infection as above. Reorient, mobilize. OT, PT. Status: Acute (3) Sepsis: With leukocytosis 14,000, fever 101 Fahrenheit. Tachycardia 104. Lactic acid 0.6. With acute encephalopathy. Pulmonary source, treat as above. Will obtain UA as well. Status: Acute (4) Physical deconditioning: His states he has been doing quite significant assistance with getting up to walk. She is not sure why. She denies that he has history of dementia. Denies severe osteoarthritis. Has had multiple hospitalizations recently. She states that they have tried to arrange for therapy for him but could not. PT, OT assessment. Case management assessment. Status: Acute Plan 87-year-old male with past medical history of hypothyroidism BPH, recent hernia repair, recently discharged from hospital on April 27 after being managed for pneumonia, discharged on oral levofloxacin, came in today with chief complaint of fever and confusion at home, as well as minimal cough with some sputum. Assessment: Hospital-acquired pneumonia Sepsis secondary pneumonia Acute metabolic encephalopathy Hypothyroidism Plan: X-ray chest: Suggestive of increased interstitial marking in mid to lower hemithorax, suspicious for interstitial pneumonia. CT abdomen pelvis wo con?: No acute findings Blood culture: :NTD Urine culture : Lactic acid 0.6 Procalcitonin: 0.26 MRSA PCR Urine Legionella antigen: Negative Bacterial antigen panel : Recent 2D echo: LV systolic function is mildly reduced with EF of 40-45% ?Trace mitral regurgitation Aortic valve is thickened and calcified. No signficant stenosis.? There is mild aortic regurgitation.? Mild tricuspid regurgitation. Mild pulmonary hypertension. Blood culture during recent hospital stay have been negative. Continue Vanco and Zosyn for now, add azithromycin for atypical coverage given interstitial findings Continue levothyroxine for now CODE STATUS: Limited resuscitation DVT prophylaxis: On Lovenox Attestations Medical Necessity Statement*: Patient is still in hospital for management of pneumonia. Time Spent in Patient Care: Greater than 35 minutes (>than 50% of time spent in counselling and/or direct pt care on unit). Coding Level of Care Code Acute White Hat Hacker for [facility] Fwd Diagnoses Hospital-acquired pneumonia J18.9; Y95 Acute encephalopathy G93.40 Sepsis A41.9 Physical deconditioning R53.81
[2022-05-08 14:39] LABS: Vancomycin Trough 12.6 ug/mL (10-15)
[2022-05-09] VITALS: BP 167/84; PULSE 84; RESP 18; TEMP 36.7; O2SAT 93
[2022-05-09 04:00] VITALS: BP 159/83; PULSE 84; RESP 18; TEMP 37; O2SAT 92
[2022-05-09 05:20] LABS: Basophils % 0.2 %; Eosinophils # 0.1 10^3/uL (0.0-0.8); Eosinophils % 1.3 %; Hematocrit 30.6 % (42.0-52.0); Hemoglobin 10.2 g/dL (11.7-16.6); Lymphocytes # 1.2 10^3/uL (0.8-4.8); Mean Corpuscular HGB Conc 33.3 g/dL (30.0-36.0); Mean Corpuscular Hemoglobin 29.1 pg (28.0-34.0); Mean Corpuscular Volume 87.4 fl (80-94); Mean Platelet Volume 9.6 fL (7.4-10.4); Monocytes # 0.8 10^3/uL (0.2-0.9); Monocytes % 12.8 %; Neutrophils # 3.81 10^3/uL (1.8-7.7); Neutrophils % 64.2 %; Nucleated Red Blood Cells % 0 %; Platelet Count 245 10^3/cmm (130-400); Red Cell Distribution Width 13.4 % (12.1-15.1); White Blood Count 5.9 10^3/uL (4.0-10.0)
[2022-05-09] MEDS: piperacillin-tazobactam 3.375 GM in sodium chloride 0.9% (plus) 50 ML IV (05:52)
[2022-05-09 05:53] LABS: Alanine Aminotransferase 15 U/L (0-41); Albumin Level 2.8 g/dL (3.5-5.2); Alkaline Phosphatase 64 IU/L (40-130); Anion Gap 16.5 (5-19); Aspartate Amino Transferase 21 U/L (0-40); Blood Urea Nitrogen 7 mg/dL (8-23); Carbon Dioxide 19 mmol/L (22-29); Chloride 103 mmol/L (98-107); Globulin 3.5 g/dL (1.3-4.6); Glucose 85 mg/dL (65-115); Osmolality Calculated 277 mOsm/kg (285-295); Potassium 3.5 mmol/L (3.5-5.1); Sodium 135 mmol/L (136-145); Total Bilirubin 0.5 mg/dL (0.15-1.2); Total Protein 6.3 g/dL (6.6-8.7)
[2022-05-09 07:40] VITALS: PULSE 84; RESP 16; O2SAT 94
[2022-05-09 08:00] VITALS: BP 154/80; PULSE 92; RESP 16; TEMP 37.1; O2SAT 91
[2022-05-09] MEDS: levothyroxine 100 mcg Tablet PO (09:36)
[2022-05-09] MEDS: tamsulosin 0.4 mg Capsule PO (09:37)
[2022-05-09] MEDS: levothyroxine 88 mcg Tablet PO (09:37)
[2022-05-09] MEDS: enoxaparin 40 mg/0.4 mL Syringe SUBCUT (09:37)
[2022-05-09] MEDS: vancomycin 1,500 MG/300 ML PIGGYBACK 150 MG IV (09:38)
--- NOTE | 2022-05-09 11:44 | P.DS_ITS ---
Discharge Providers Date of Admission: 05/07/22 00:20 Date of Discharge: May 09, 2022 Attending Provider at Admission: Omar Banegas Attending Provider at Discharge: Nik Ng MD Primary Care Provider: Jaymie Urbano Diagnoses at Discharge Discharge Diagnosis (1) Hospital-acquired pneumonia: Status: Acute (2) Acute encephalopathy: Status: Acute (3) Sepsis: Status: Acute (4) Physical deconditioning: Status: Acute Reason for Visit Reason for Visit: pneumonia Hospital Course Hospital Course 87-year-old male with past medical history of hypothyroidism BPH, recent hernia repair, recently discharged from hospital on April 27 after being managed for pneumonia, discharged on oral levofloxacin, came in today with chief complaint of fever and confusion at home, as well as minimal cough with some sputum. He was admitted for the management of hospital-acquired pneumonia: He was kept on broad-spectrum antibiotics, blood cultures were negative, CT abdomen and pelvis no acute finding, lactic acid and procalcitonin was normal, urine Legionella antigen and bacterial antigen panel was negative, patient continued to remain afebrile during the hospital stay He was saturating well on minimal supplemental oxygen, mostly on room air, he was hemodynamically stable, antibiotic coverage was narrowed to Augmentin p.o.. Patient was offered to go to snf, for further rehab, but currently he wants to go to home. We have been trying hard to arrange home health, outpatient physical therapy Has been arranged. Overall patient has responded well to above medical management and is being discharged in stable condition to home. He has been asked to follow-up with his primary care physician as an outpatient. Physical Exam Const: COMMON NORMALS: patient oriented x3 HENMT: COMMON NORMALS: normocephalic and atraumatic HEAD & SCALP: normocephalic and atraumatic Resp: COMMON NORMALS: normal respiratory effort and clear to auscultation bilaterally EFFORT & INSPECTION: Yes symmetric chest movement AUSCULTATION: clear to auscultation bilaterally Cardio: COMMON NORMALS: regular rate, regular rhythm, S1 normal heart sound present, S2 normal heart sound present, No gallops present (Cardio), No murmurs present (Cardio), No rub (Cardio) and Peripheral pulses 2+ throughout RATE: regular rate RHYTHM: regular rhythm HEART SOUNDS: S1 normal heart sound present and S2 normal heart sound present PERIPHERAL PULSES: Peripheral pulses 2+ throughout GI: COMMON NORMALS: Normal to inspection, nondistended, normoactive bowel sounds present, Soft to palpation, non-tender, No hepatosplenomegaly present and no masses AUSCULTATION: Yes normoactive bowel sounds PALPATION: Yes Soft to palpation and Yes No hepatosplenomegaly present RECTAL EXAM: Yes deferred Extremity: COMMON NORMALS: no clubbing, cyanosis or edema and no pedal edema Neuro: COMMON NORMALS: patient oriented x3 Discharge Data Studies Completed and Pending Completed Studies During Hospitalization Category Date Time Status CT abdomen pelvis wo con [id number] Urgent Cat Scan 05/06/22 21:49 Completed XR chest 1V portable [id number] Stat Exams 05/06/22 20:52 Completed Pending at discharge Category Date Time Status Blood Culture Stat Lab 05/06/22 23:33 Results Complete Blood Count w/Auto AM LABS Lab 05/10/22 04:00 Ordered Comprehensive Metabolic Panel AM LABS Lab 05/10/22 04:00 Ordered MRSA by PCR Routine Lab 05/07/22 02:12 Uncollected Sputum Culture and Gram Stain Routine Lab 05/07/22 02:12 Uncollected Radiology Impressions Chest X-Ray 05/06/22 20:52 IMPRESSION: 1. Increased interstitial markings seen in the mid lower hemithoraces bilaterally, findings may represent bilateral interstitial pneumonia and/or atelectasis. 2. Strandy opacities in the left lung base likely represents atelectasis versus pleural or parenchymal scarring. Abdomen/Pelvis CT 05/06/22 21:49 IMPRESSION: 1. There is a stable left inguinal hernia present containing fluid. 2. Diverticulosis of the sigmoid colon 3. Multiple small gallstones 4. Small left pleural effusion 5. Calcified pleural plaques seen left posterior hemithorax 6. Probable bilateral basilar atelectasis although superimposed pneumonia cannot be excluded. Laboratory Results WBC 5.9 10^3/uL (4.0-10.0) 05/09/22 04:54 RBC 3.50 10^6/uL (4.1-5.3) L 05/09/22 04:54 Hgb 10.2 g/dL (11.7-16.6) L 05/09/22 04:54 Hct 30.6 % (42.0-52.0) L 05/09/22 04:54 MCV 87.4 fl (80-94) 05/09/22 04:54 MCH 29.1 pg (28.0-34.0) 05/09/22 04:54 MCHC 33.3 g/dL (30.0-36.0) 05/09/22 04:54 RDW 13.4 % (12.1-15.1) 05/09/22 04:54 Plt Count 245 10^3/cmm (130-400) 05/09/22 04:54 MPV 9.6 fL (7.4-10.4) 05/09/22 04:54 Neut % (Auto) 64.2 % 05/09/22 04:54 Lymph % (Auto) 20.0 % 05/09/22 04:54 [place] % (Auto) 12.8 % 05/09/22 04:54 Eos % (Auto) 1.3 % 05/09/22 04:54 Baso % (Auto) 0.2 % 05/09/22 04:54 Neut # (Auto) 3.81 10^3/uL (1.8-7.7) 05/09/22 04:54 Lymph # (Auto) 1.2 10^3/uL (0.8-4.8) 05/09/22 04:54 [place] # (Auto) 0.8 10^3/uL (0.2-0.9) 05/09/22 04:54 Eos # (Auto) 0.1 10^3/uL (0.0-0.8) 05/09/22 04:54 Baso # (Auto) 0.0 10^3/uL (0.0-0.1) 05/09/22 04:54 Nucleated RBC % (auto) 0 % 05/09/22 04:54 Nucleated RBCs # 0.0 /100WBC 05/09/22 04:54 Sodium 135 mmol/L (136-145) L 05/09/22 04:54 Potassium 3.5 mmol/L (3.5-5.1) 05/09/22 04:54 Chloride 103 mmol/L (98-107) 05/09/22 04:54 Carbon Dioxide 19 mmol/L (22-29) L 05/09/22 04:54 Anion Gap 16.5 (5-19) 05/09/22 04:54 BUN 7 mg/dL (8-23) L 05/09/22 04:54 Creatinine 0.5 mg/dL (0.7-1.2) L 05/09/22 04:54 GFR Calculation Not Reportable 05/09/22 04:54 Glucose 85 mg/dL (65-115) 05/09/22 04:54 Calculated Osmolality 277 mOsm/kg (285-295) L 05/09/22 04:54 Lactic Acid 0.6 mmol/L (0.5-2.2) 05/06/22 23:28 Calcium 8.0 mg/dL (8.5-10.5) L 05/09/22 04:54 Total Bilirubin 0.5 mg/dL (0.15-1.2) 05/09/22 04:54 AST 21 U/L (0-40) 05/09/22 04:54 ALT 15 U/L (0-41) 05/09/22 04:54 Alkaline Phosphatase 64 IU/L (40-130) 05/09/22 04:54 Total Protein 6.3 g/dL (6.6-8.7) L 05/09/22 04:54 Albumin 2.8 g/dL (3.5-5.2) L 05/09/22 04:54 Globulin 3.5 g/dL (1.3-4.6) 05/09/22 04:54 Procalcitonin 0.26 ng/mL (0-0.5) 05/08/22 04:44 TSH 3.40 uIU/mL (0.27-4.20) 05/08/22 04:44 Vancomycin Trough 12.6 ug/mL (10-15) 05/08/22 13:55 Vitals Last Vital Signs Temp 98.7 F 05/09/22 08:00 Pulse 92 05/09/22 08:00 Resp 16 05/09/22 08:00 BP 154/80 05/09/22 08:00 Pulse Ox 91 05/09/22 08:00 Discharge Plan Discharge Patient Disposition: Home Condition: Stable Prescriptions: New Augmentin 500-125 mg tablet 1 tab PO BID Qty: 14 0RF Continued trazodone 50 mg tablet 50 - 150 mg PO BEDTIME PRN (Reason: Insomnia) 0RF tamsulosin 0.4 mg capsule 0.4 mg PO BID 0RF benzonatate 100 mg Capsule 100 mg PO TID PRN (Reason: Cough) Qty: 90 0RF albuterol sulfate [Ventolin HFA] 90 mcg/actuation Hfa Aerosol Inhaler 2 puff inhalation Q4H.RESPIRATORY PRN (Reason: Shortness Of Breath) Qty: 8.5 0RF acetaminophen 325 mg Tablet 650 mg PO Q6H PRN (Reason: Mild/Mod Pain Or Temp >/= 101) Qty: 30 0RF multivitamin Tablet 1 tab PO DAILY 0RF levothyroxine 100 mcg tablet 100 mcg PO DAILY 0RF lisinopril 10 mg tablet 10 mg PO DAILY Qty: 60 1RF albuterol sulfate 90 mcg/actuation HFA aerosol inhaler 1 inh inhalation Q8H PRN (Reason: shortness of breath or wheezing) Qty: 8.5 2RF Trelegy Ellipta 100-62.5-25 mcg blister with device 1 inh inhalation DAILY Qty: 60 5RF Discharge Orders: Discharge Order (Routine); Ordered 05/09/22 Ordered By: Nik Ng Referrals: Jaymie Urbano [Primary Care Provider] - 1 week (Please call Tuesday to schedule a follow up appointment.) Discharge Diet: Regular Patient Instructions: Amoxicillin/Clavulanate Potassium (By mouth), Sepsis (GEN), Pneumonia (DC), Opioid Safety, Pneumonia Stoplight Discharge Attestations Time Spent in Discharge Care*: less than 30 min Quality Metrics Clinical Quality Measures [ No reported AMI, CVA or VTE this stay] Coding Level of Care Code Acute Chg FW DC note Diagnoses Hospital-acquired pneumonia J18.9; Y95 Acute encephalopathy G93.40 Sepsis A41.9 Physical deconditioning R53.81
[2022-05-09 12:00] VITALS: BP 142/76; PULSE 80; RESP 15; TEMP 37.1; O2SAT 91
[2022-05-09] MEDS: azithromycin 500 MG in sodium chloride 0.9% 250 ML 250 MG IV (12:40)
[2022-05-09 15:50] VITALS: BP 142/76; PULSE 80; RESP 15; TEMP 37.1; O2SAT 91
--- NOTE | 2022-05-09 15:50 | PC.NURSE ---
Discussed discharge, medications and follow up appointments with patient and Jamilah. Verbalized understanding.
== END 2022-05-09 15:15 | disposition home or self-care (01) | DRG 871 ==
LOC: ER 05-07 00:20 → MEDSURG 05-07 02:29
PROVIDERS: Admitting Provider Internal Medicine; Emergency Provider Emergency Medicine; PCP Nurse Practitioner Family; Visit Provider Internal Medicine
DX: A41.9 Sepsis, unspecified organism (principal); G93.41 Metabolic encephalopathy; J18.9 Pneumonia, unspecified organism; Y95 Nosocomial condition; Z86.16 Personal history of COVID-19; Z85.828 Personal history of other malignant neoplasm of skin; E03.9 Hypothyroidism, unspecified; N40.0 Benign prostatic hyperplasia without lower urinary tract symptoms; F17.220 Nicotine dependence, chewing tobacco, uncomplicated; Z79.891 Long term (current) use of opiate analgesic; Z79.51 Long term (current) use of inhaled steroids
CPT/HCPCS: 36415; 71045; 74176; 80053; 80202; 83605; 84145; 84443; 85025; 86403; 87040; 87449; 93005; 94664; 96365; 96367; 96372; 97116; 97162; 97165; 97530; 99285; G0378; J0456; J0696; J1644; J1650; J2543; J3370; J7030; J7040; J7050

== ENCOUNTER 2023-07-27 14:42 | Observation (INO) | payer MEDICARE, SELFPAY ==
[2023-07-27] VITALS (11 sets, daily range): BP systolic 152–181; BP diastolic 81–137; PULSE 73–88; RESP 13–18; TEMP 36.6–37.4; O2SAT 92–96; BMI 21.4
--- NOTE | 2023-07-27 14:46 | CT_ITS ---
WS: [id number] CT HEAD NONCONTRAST HISTORY: fall, facial trauma TECHNIQUE: Contiguous axial imaging performed through the brain in 2.5 mm imaging. Bone and soft tiss ue windows. Sagittal and coronal reformats reviewed. All CT scans at [facility] use at least one of these dose optimization techniques: automated exposure control; mA and/or kV adjustment per pa tient size (includes targeted exams where dose is matched to clinical indication); or iterative recon struction. DLP: 1145.38 mGy.cm COMPARISON: 04/25/2022 No acute intracranial hemorrhage, midline shift or mass effect. Moderate atrophy is symmetric involving the cerebellum and cerebrum. Mild small vessel ischemic [place] es. No prior infarct. Ventricles: Ventricles and extra-axial spaces are mildly prominent on the basis of central and periph eral atrophy. Paranasal sinuses: As visualized are clear. Mastoid air cells: Normal. Small amount of cerumen in the RIGHT external auditory canal. Calvarium and scalp: Skull is intact with no soft tissue edema or swelling. IMPRESSION: 1. No acute intracranial hemorrhage or edema. 2. Moderate cerebral and cerebellar atrophy and mild small vessel ischemic disease is stable.
--- NOTE | 2023-07-27 14:46 | XR_ITS ---
WS: [id number] Portable AP upright chest, 07/27/2023 Clinical Data: fall Comparison: Portable chest, 05/06/2022 Findings: No nodules, masses or effusions are seen. The heart is slightly enlarged.. The pulmonary va scularity is not increased. No pneumonia or pneumothorax is seen. The aortic arch and descending thor acic aorta show tortuosity and calcification. There are monitor leads on the chest wall. Impression: Atherosclerosis and cardiomegaly.
--- NOTE | 2023-07-27 15:00 | ED_ITS ---
HPI - Weakness General: Chief complaint: Weakness Stated complaint: AMS Time Seen by Provider: 07/27/23 14:45 History of Present Illness: Patient presents to the emergency department along with EMS. He is hard of hearing. Originally they stated that he was altered. However upon questioning, he can tell us his name, where he is at, that he is in the hospital. He is not so sure why he was here. Originally there was report of a fall. arrived sometime later and clarified a few details. He did fall yesterday morning. However he did not get injured. He did have a surgery yesterday at the [facility]. He had an inverted eyelid that was corrected. There are some sutures in the left lateral canthus. After the procedure he had a little hematoma in the skin underneath his left eye. reports this was not traumatic from his fall but she believes to be a result of the surgery. reports he has been having intermittent hallucinations for the last 3 weeks. Prior to this he was not known to have any altered mental status or any dementia. Last night he was having visual hallucinations and was exhibiting some slightly agitated behavior. Associated symptoms: Denies chest pain, chills, dysuria, fever(s), headache(s), nausea, syncope or vomiting Review of Systems General: Reports: 10 or more systems reviewed and unremarkable except in HPI and below Narrative: Hallucinations, some generalized weakness, some insomnia. These of the 's main concerns. Const: Denies: fever(s), chills or body aches Eyes: Denies: change in vision ENMT: Denies: throat pain Card: Denies: chest pain, edema or syncope Resp: Denies: dyspnea or productive cough GI: Denies: abdominal pain, nausea, vomiting or diarrhea : Denies: flank pain or dysuria Musc: Denies: neck pain, back pain, extremity pain or extremity swelling Skin/Breast: Denies: rash or erythema Neuro: Denies: headache(s), numbness in extremities or lack of coordination PFS ED PFSH: Medical History COVID-19 vaccine dose not administered History of skin cancer Hypothyroidism Prostatic hypertrophy Surgical History History of cataract surgery History of skin surgery on penis for skin cancer Family History Denies family history of CAD (coronary artery disease) Social History Smoking and tobacco status: current every day smoker smokeless tobacco Smokeless tobacco user: chewing tobacco Smokeless tobacco details: daily Alcohol intake: current Alcohol intake frequency: holidays/special occasions only Alcohol type: beer Substance/Drug Use: never Household members: spouse Marital status: Physical Exam Narrative: EXAM NARRATIVE: Patient is hard of hearing. He is alert. He is oriented to person, place. He is not entirely sure why he is here. He does not know the day of the week. He has no signs of trauma to his head. He has a collection of blood in the excess skin below his left eye. There are sutures to the left lateral canthus. There are some mild bleeding between the sutures. There is some bleeding into the conjunctiva near the left lateral canthus. Pupils are equal round and reactive. Extraocular movements are intact. No facial tenderness. C-spine has normal range of motion and he continues to endorse no tenderness with deep palpation. The remainder of the spine is also nontender. Passive range of motion and palpation of all of his extremities reveals no injuries. He has an old ulnar styloid defect on the right upper extremity. Abdomen is soft and nondistended with the exception of mild fullness in the suprapubic region. Chest wall nontender, no crepitus. Normal respirations. Breath sounds normal. Clavicles nontender. Const: COMMON NORMALS: no limitations, alert and well nourished EXAM LIMITATIONS: no altered mental status HENMT: COMMON NORMALS: normocephalic, atraumatic and external ears normal HEAD & SCALP: normocephalic and atraumatic EXTERNAL EAR: Yes external ears normal MOUTH: no muffled voice Neck/C-Spine: COMMON NORMALS: no JVD GENERAL: Yes normal visual inspection and Yes trachea midline Resp: COMMON NORMALS: normal respiratory effort, No use of accessory muscles and clear to auscultation bilaterally AUSCULTATION: clear to auscultation bilaterally Cardio: COMMON NORMALS: no JVD, regular rate and regular rhythm RATE: re gular rate RHYTHM: regular rhythm GI: COMMON NORMALS: Soft to palpation and non-tender PALPATION: Yes Soft to palpation and No Guarding due to palpation present (GI) Extremity: COMMON NORMALS: normal to inspection Neuro: COMMON NORMALS: moves all extremities, no focal motor deficits and no sensory deficits noted SENSORIUM/ORIENTATION: Yes alert SPEECH: speech normal Psych: COMMON NORMALS: mental status grossly normal, Normal thought process present, cooperative, normal affect and speech normal SPEECH: Yes normal speech THOUGHT PROCESS: Normal thought process present Skin: COMMON NORMALS: no rashes or lesions noted and no jaundice GENERAL SKIN EXAM: no rashes or lesions noted Course Vital Signs: Vital signs: Vital Signs Temperature 97.9 F 07/27/23 14:43 Pulse Rate 84 07/27/23 16:35 Respiratory Rate 16 07/27/23 16:35 Blood Pressure 175/99 07/27/23 16:35 Pulse Oximetry 96 07/27/23 16:35 Oxygen Delivery Me thod Room Air 07/27/23 14:43 MDM - Weakness Medical Decision Making Patient presents with intermittent hallucinations for the last 3 weeks. He did have a procedure yesterday on his left eyelids. He has stitches there and a small conjunctival hematoma. He had a fall yesterday but apparently did not suffer any injuries. Evidently he caught himself before any major injury was sustained. He does have some fullness in his suprapubic region and his states he pees frequently and has constant leakage. I am wondering whether the patient is suffering from urinary retention. I went through his medications and found that he is on tamsulosin. is unsure of any prostate issue. She states none of his medications are new. She reports that he seemed to be okay when he came home from the eye doctor yesterday. She does not think they gave him anything that was majorly sedating. Therefore, we are now less concerned with traumatic injury and more concerned with why the patient is having intermittent visual hallucinations for 3 weeks. Patient was able to void in the emergency department. His postvoid residual was 231 cc with a urine output of approximately 5 cc. I am not sure we can take action on this since he had so little in his bladder to begin with. Proceed with CT scan of the head, EKG, CBC, CMP, UA, cxr, tsh. EKG my interpretation shows a sinus rhythm at a rate of 85, left axis deviation, right bundle branch block pattern, QTc within normal limits, no ectopy, some nonspecific ST changes. No concerning sequential ST depressions or elevations. Update Patient's blood pressure has remained elevated. He has not taken his lisinopril today. This seems more likely to be an accelerated hypertension from not taking his medication and less likely to be a true hypertensive emergency. However hypertensive encephalopathy or press syndrome should be on the differential diagnosis. I am going to go ahead and order him 20 mg of IV labetalol. A CT scan of his head was unremarkable from an intracranial standpoint. There is some soft tissue density external and inferior to the left eye. This is what was seen on physical exam as well. I do not see any soft tissue density in the retro-orbital space. His extraocular movements are intact. I do not feel any excessive warmth around the eye. I do not think this is a retro-orbital infection. Patient's laboratory work-up was largely unremarkable. On repeat assessment, patient is actively hallucinating. He is acting as if he is holding food and eating it and wiping his face. He is also messing with things on his legs that are not there. Family states this is not normal for him. I had inadvertently ordered Xanax and oxycodone for this patient. This was can celed. It was intended to be for a hospice patient. Nurses were notified. Patient was not given this medication. After discussion with the family, we are going to admit to observation for treatment of blood pressure and further work-up of encephalopathy. I discussed with who requested a CT scan of the chest. The chest x- ray shows some slight haziness in the right pericardiac region and some sort of groundglass appearance in the left midlung. This appears similar to his previou s chest x-ray. In the past when he has had an x-ray that look like this there was some concern he may have had pneumonia. Since we are working up possible causes of encephalopathy, he would like to have a CT scan for definitive evaluation. Lab Data 07/27/23 15:17 07/27/23 15:17 Laboratory Results WBC 4.49 10^3/uL (3.29-11.43) 07/27/23 15:17 RBC 4.33 10^6/uL (3.85-5.65) 07/27/23 15:17 Hgb 13.00 g/dL (11.27-16.99) 07/27/23 15:17 Hct 38.1 % (37-53) 07/27/23 15:17 MCV 88.0 fl (82-101) 07/27/23 15:17 MCH 30.0 pg (27-33) 07/27/23 15:17 MCHC 34.1 g/dL (30-55) 07/27/23 15:17 RDW 13.2 % (12.1-15.1) 07/27/23 15:17 Plt Count 176 10^3/cmm (157-399) 07/27/23 15:17 MPV 9.7 fL (7.4-10.4) 07/27/23 15:17 Neut % (Auto) 54.4 % 07/27/23 15:17 Lymph % (Auto) 26.9 % 07/27/23 15:17 [place] % (Auto) 17.8 % 07/27/23 15:17 Eos % (Auto) 0.0 % 07/27/23 15:17 Baso % (Auto) 0.2 % 07/27/23 15:17 Neut # (Auto) 2.44 10^3/uL (1.8-7.7) 07/27/23 15:17 Lymph # (Auto) 1.2 10^3/uL (0.8-4.8) 07/27/23 15:17 [place] # (Auto) 0.8 10^3/uL (0.2-0.9) 07/27/23 15:17 Eos # (Auto) 0.0 10^3/uL (0.0-0.8) 07/27/23 15:17 Baso # (Auto) 0.0 10^3/uL (0.0-0.1) 07/27/23 15:17 Nucleated RBC % (auto) 0 % 07/27/23 15:17 Nucleated RBCs # 0.0 /100WBC 07/27/23 15:17 Sodium 136 mmol/L (136-145) 07/27/23 15:17 Potassium 3.8 mmol/L (3.5-5.1) 07/27/23 15:17 Chloride 101 mmol/L (98-107) 07/27/23 15:17 Carbon Dioxide 24 mmol/L (22-29) 07/27/23 15:17 Anion Gap 14.8 (5-19) 07/27/23 15:17 BUN 12 mg/dL (8-23) 07/27/23 15:17 Creatinine 0.6 mg/dL (0.7-1.2) L 07/27/23 15:17 GFR Calculation Not Reportable 07/27/23 15:17 Glucose 92 mg/dL (65-115) 07/27/23 15:17 Calculated Osmolality 281 mOsm/kg (285-295) L 07/27/23 15:17 Calcium 8.8 mg/dL (8.5-10.5) 07/27/23 15:17 Total Bilirubin 1.0 mg/dL (0.15-1.2) 07/27/23 15:17 AST 20 U/L (0-40) 07/27/23 15:17 ALT 8 U/L (0-41) 07/27/23 15:17 Alkaline Phosphatase 125 U/L (40-130) 07/27/23 15:17 Total Protein 7.7 g/dL (6.6-8.7) 07/27/23 15:17 Albumin 4.1 g/dL (3.5-5.2) 07/27/23 15:17 Globulin 3.6 g/dL (1.3-4.6) 07/27/23 15:17 TSH 1.94 uIU/mL (0.27-4.20) 07/27/23 15:17 Urine Color Yellow (Yellow) 07/27/23 15:08 Urine Appearance Clear (CLEAR) 07/27/23 15:08 Urine pH 6 (5-7) 07/27/23 15:08 Ur Specific [place] 1.010 (1.005-1.030) 07/27/23 15:08 Urine Protein Neg (Negative) 07/27/23 15:08 Urine Glucose (UA) Norm (Normal) 07/27/23 15:08 Urine Ketones 1+ (Negative) H 07/27/23 15:08 Urine Blood Trace (Negative) H 07/27/23 15:08 Urine Nitrate Negative (Negative) 07/27/23 15:08 Urine Bilirubin Neg (Negative) 07/27/23 15:08 Urine Urobilinogen Norm mg/dL (Negative) 07/27/23 15:08 Ur Leukocyte Esterase Negative (Negative) 07/27/23 15:08 Urine RBC 0-4 /hpf (0-2) H 07/27/23 15:08 Urine WBC 0-4 /hpf (0-5) H 07/27/23 15:08 Ur Squamous Epith Cells 5-10 /hpf (0-5) H 07/27/23 15:08 Amorphous Sediment Not Reportable 07/27/23 15:08 Urine Bacteria Trace /hpf (NONE) 07/27/23 15:08 Hyaline Casts Rare /lpf 07/27/23 15:08 Urine Mucus Trace /hpf 07/27/23 15:08 All radiology interpretation(s) finalized by discharge Discharge Plan Discharge Patient Disposition: Placed in Observation Clinical Impression: Accelerated hypertension, Hallucinations, Altered mental status Coding Level of Care Code ED 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
[2023-07-27 15:25] LABS: Basophils % 0.2 %; Hematocrit 38.1 % (37-53); Lymphocytes # 1.2 10^3/uL (0.8-4.8); Lymphocytes % 26.9 %; Mean Corpuscular HGB Conc 34.1 g/dL (30-55); Mean Platelet Volume 9.7 fL (7.4-10.4); Monocytes # 0.8 10^3/uL (0.2-0.9); Monocytes % 17.8 %; Neutrophils # 2.44 10^3/uL (1.8-7.7); Neutrophils % 54.4 %; Nucleated Red Blood Cells % 0 %; Platelet Count 176 10^3/cmm (157-399); Red Blood Count 4.33 10^6/uL (3.85-5.65); Red Cell Distribution Width 13.2 % (12.1-15.1); White Blood Count 4.49 10^3/uL (3.29-11.43)
[2023-07-27 15:48] LABS: Add Urine Microscopic? YES; Bilirubin Urine Neg (Negative); Blood Urine Trace (Negative); Glucose Urine UA Norm (Normal); Ketones Urine 1+ (Negative); Leukocyte Esterase Urine Negative (Negative); Nitrate Urine Negative (Negative); Protein Urine Neg (Negative); Urine Appearance Clear (CLEAR); Urine Color Yellow (Yellow); Urobilinogen Urine Norm (Negative); pH Urine 6 (5-7)
[2023-07-27 15:54] LABS: Add Urine Culture? No; Bacteria Urine TRACE /hpf; Hyaline Casts Urine RARE /lpf; Mucus Urine TRACE /hpf; RBC Urine 0-4 /hpf (0-2); WBC Urine 0-4 /hpf (0-5)
[2023-07-27 15:59] LABS: Alanine Aminotransferase 8 U/L (0-41); Albumin Level 4.1 g/dL (3.5-5.2); Alkaline Phosphatase 125 U/L (40-130); Anion Gap 14.8 (5-19); Aspartate Amino Transferase 20 U/L (0-40); Blood Urea Nitrogen 12 mg/dL (8-23); Calcium 8.8 mg/dL (8.5-10.5); Carbon Dioxide 24 mmol/L (22-29); Chloride 101 mmol/L (98-107); Globulin 3.6 g/dL (1.3-4.6); Glucose 92 mg/dL (65-115); Osmolality Calculated 281 mOsm/kg (285-295); Potassium 3.8 mmol/L (3.5-5.1); Sodium 136 mmol/L (136-145); Thyroid Stimulating Hormone 1.94 uIU/mL (0.27-4.20); Total Protein 7.7 g/dL (6.6-8.7)
--- NOTE | 2023-07-27 16:49 | CTR_ITS ---
PROCEDURE INFORMATION: Exam: CT Chest Without Contrast; Diagnostic Exam date and time: 07/27/2023 5:16 PM Age: 88 years old Clinical indication: Shortness of breath; Additional info: Requested by admitting physician for further eval chest xray TECHNIQUE: Imaging protocol: Diagnostic computed tomography of the chest without contrast. Radiation optimization: All CT scans at this facility use at least one of these dose optimization techniques: automated exposure control; mA and/or kV adjustment per patient size (includes targeted exams where dose is matched to clinical indication); or iterative reconstruction. REPORTING DATA: Count of CT and Cardiac NM exams in prior 12 months: This patient has received 0 known CTs and 0 known cardiac nuclear medicine studies in the 12 months prior to the current study. COMPARISON: CT chest abdpel w/*[id number] 04/25/2022 2:45 PM RADIATION DOSE METRICS: Total DLP (mGy-cm): 1222 FINDINGS: Lungs: Changes of centrilobular emphysema demonstrated. Mild ground-glass attenuation demonstrated bilaterally, suggesting small airways disease such as bronchiolitis. No consolidative pulmonary infiltrate noted. Pleural spaces: Calcified pleural plaques are demonstrated at the bilaterally. Heart: Mild cardiomegaly is noted. Coronary arteries: The coronary arteries demonstrate atherosclerotic calcifications. Lymph nodes: Calcified mediastinal lymph nodes, consistent with old granulomatous disease. Vasculature: Atherosclerosis of the thoracic aorta. Spleen: Calcified granulomas are noted in the spleen. Bones/joints: Minimal chronic-appearing superior endplate compression fracture at T7. No acute osseous abnormality demonstrated. Soft tissues: Unremarkable. CT/CT chest wo con [id number] IMPRESSION: 1. Calcified pleural plaques are demonstrated at the bilaterally. 2. Changes of centrilobular emphysema demonstrated. 3. Mild ground-glass attenuation demonstrated bilaterally, suggesting small airways disease such as bronchiolitis. No consolidative pulmonary infiltrate noted. 4. Mild cardiomegaly is noted. 5. Calcified mediastinal lymph nodes, consistent with old granulomatous disease.
[2023-07-27] MEDS: labetalol 5 mg/mL SDV 20mL 20 MG IVP (17:06)
--- NOTE | 2023-07-27 18:36 | ECG_ITS ---
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 Measurements Intervals [place] Rate: 85 P: 76 MI: 176 QRS: -15 QRSD: 122 T: 53 QT: 381 QTc: 454 Interpretive Statements SINUS RHYTHM POSSIBLE RIGHT VENTRICULAR CONDUCTION DELAY [RSR (QR) IN V1/V2] Compared to ECG 05/07/2022 01:19:49 Intraventricular conduction delay no longer present Electronically Signed On 07-27-2023 21:00:46 CDT by Giulia Oliva M.D. [id number]
--- NOTE | 2023-07-27 19:56 | P.HP_ITS ---
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 Some odd behavior/hallucination noted for possibly 2 to 3 weeks, however, fidgeting, restlessness, confusion got significantly worse overnight last night. They did not notice any additional new symptoms. Reportedly has not been started on any new medications. In ER CT head was obtained including detailed view of the orbits, with moderate cerebral and cerebellar atrophy, mild small vessel ischemic disease noted stable, no intracranial hemorrhage or edema. UA not suggestive of UTI. Chest x-ray with cardiomegaly, atherosclerosis, although on review does appear to have possibly some infiltrate in right lower lobe. He is otherwise afebrile, without leukocytosis. Chemistry panel unremarkable. TSH WNL. Certainly this behavior is unusual for him. At most the has noticed some forgetfulness over time, he does not carry a formal diagnosis of dementia. He is quite hypertensive in ER. Review of Systems General: Reports: ROS unobtainable due to mental status Const: Reports: other Medications/Allergies Home Medications Medication Instructions Recorded Confirmed Last Taken Type acetaminophen 325 mg tablet 650 mg PO Q6H PRN Mild/Mod Pain Or 06/19/21 07/27/23 Unknown Rx Temp >/= 101 #30 tabs tamsulosin 0.4 mg capsule 0.4 mg PO BID 06/19/21 07/27/23 07/27/23 History trazodone 50 mg tablet 50 - 150 mg PO BEDTIME PRN Insomnia 06/19/21 07/27/23 07/26/23 History levothyroxine 100 mcg tablet 100 mcg PO DAILY 04/25/22 07/27/23 07/27/23 History multivitamin 1 tab PO DAILY 04/25/22 07/27/23 04/24/22 History albuterol sulfate 90 mcg/actuation 1 inh inhalation Q8H PRN shortness 04/27/22 07/27/23 Unknown Rx aerosol inhaler of breath or wheezing #8.5 grams lisinopril 10 mg tablet 10 mg PO DAILY #60 tabs 04/27/22 07/27/23 07/27/23 Rx aspirin 81 mg tablet,delayed 81 mg PO DAILY 07/27/23 07/27/23 07/27/23 History release neomycin 3.5 mg/g-polymyxin B 1 applic ophthalmic (eye) TID 07/27/23 07/27/23 07/27/23 History 10,000 unit/g-dexameth 0.1 % eye oint Allergies Allergy/AdvReac Type Severity Reaction Status Date / Time No Known Allergies Allergy Verified 07/27/23 15:46 PFSH Acute PFSH: Medical History COVID-19 vaccine dose not administered History of skin cancer Hypothyroidism Prostatic hypertrophy Surgical History History of cataract surgery History of skin surgery on penis for skin cancer Family History Denies family history of CAD (coronary artery disease) Social History Smoking and tobacco status: current every day smoker smokeless tobacco Smokeless tobacco user: chewing tobacco Smokeless tobacco details: daily Alcohol intake: current Alcohol intake frequency: holidays/special occasions only Alcohol type: beer Substance/Drug Use: never Household members: spouse Marital status: Vitals/I&O/Wt Last Vital Signs Temp 97.9 F 07/27/23 14:43 Pulse 73 07/27/23 18:07 Resp 16 07/27/23 18:07 BP 165/88 07/27/23 18:07 Pulse Ox 92 07/27/23 18:07 O2 Del Method Room Air 07/27/23 18:18 Weight last 48 hrs Weight 78.018 kg Physical Exam Narrative: Confused, reaching out for things in the air, fidgeting, grabbing onto objects in the bed, his pulse oximeter, bedrail. Const: COMMON NORMALS: alert; negative for patient oriented x3 GENERAL APPEARANCE: cooperative ORIENTATION/CONSCIOUSNESS: Yes awake and Yes confused HENMT: COMMON NORMALS: oropharynx normal Neck/C-Spine: COMMON NORMALS: no JVD Resp: COMMON NORMALS: normal respiratory effort and clear to auscultation bilaterally AUSCULTATION: clear to auscultation bilaterally Cardio: COMMON NORMALS: no JVD, regular rhythm, S1 normal heart sound present, S2 normal heart sound present and No murmurs present (Cardio) RHYTHM: regular rhythm HEART SOUNDS: S1 normal heart sound present and S2 normal heart sound present GI: COMMON NORMALS: Normal to inspection, nondistended, normoactive bowel sounds present, Soft to palpation and non-tender PALPATION: Yes Soft to palpation Extremity: COMMON NORMALS: no joint enlargement and no pedal edema Neuro: COMMON NORMALS: moves all extremities; negative for patient oriented x3 SENSORIUM/ORIENTATION: Yes alert OTHER: No rigidity. Skin: COMMON NORMALS: no rashes or lesions noted GENERAL SKIN EXAM: no rashes or lesions noted Data 07/27/23 15:17 07/27/23 15:17 A&P Assessment and plan (1) Altered mental status: Acute mental status change, with hallucinations, confusion, fusion, yesterday also had a fall. He is unable to provide history. History is to be obtained from his family. Acute encephalopathy, with acute delirium, etiology not entirely clear, however, discussed with his as well as relative/neighbor who is accompanying them considerations of acute delirium possibly secondary to medication, will hold trazodone at this time, additionally had a procedure yesterday, unclear if he got some sedation for that. There is some swelling on the left side of the eye, left side cheek, but does not appear to have any signs of orbital cellulitis. No trouble with eye movement, no eye pain. We will continue Polysporin. Reassess symptoms. There is a question of possible pneumonia, right lower lobe appears to have a similar infiltrate during prior admission with pneumonia. At that time he also had encephalopathy. For now empirically Zosyn as cannot exclude some aspiration. However, if improving, de-escalate antibiotic. As per discussion with family does sound like he may be having some underlying dementia making him more prone to encephalopathy and delirium. Additional assessment by CT chest. We will check COVID PCR. He otherwise does not appear to have UTI this time although did have some retention of urine noted and did have a straight cath. At this time would not be safe to try to place a Dove catheter. We will have to reassess with bladder scans. Discussed if needed may require antipsychotic, but discussed dangers including increased mortality in elderly. For now he is redirectable. Does require one-to-one sitter, however. Additionally question of possible hypertensive encephalopathy as he is quite hypertensive. Received labetalol in ER. For now as he appears to be too confused to safely take medications we will keep n.p.o., start on scheduled hydralazine with holding parameters. (2) Accelerated hypertension: With possible hypertensive encephalopathy. As above. (3) Hallucinations: Plan Swelling of left lateral eyelids, left cheek: No evidence of orbital cellulitis at this time. Reviewed CT head. Continue Polysporin, additionally on Zosyn as above. Reassess. Remote history of EtOH: This reportedly was a long time ago. No EtOH or currently recently. Discussed with ER physician. ER documentation reviewed. Attestations Medical Necessity Statement*: Place in observation for additional assessment management of acute encephalopathy. Diagnoses Altered mental status R41.82 Accelerated hypertension I10 Hallucinations R44.3
[2023-07-27] MEDS: piperacillin-tazobactam 3.375 GM in sodium chloride 0.9% (plus) 50 ML IV (20:06)
[2023-07-27] MEDS: haloperidol inj 5 mg/mL INJ 1 mL 1 MG IM (21:39)
[2023-07-28] VITALS (31 sets, daily range): BP systolic 74–158; BP diastolic 44–113; PULSE 61–105; RESP 15–32; TEMP 36.6–37.2; O2SAT 88–97
[2023-07-28] MEDS: hyDRALAzine 20 mg/mL INJ 1 mL 5 MG IVP ×2 (00:28→13:42)
[2023-07-28] MEDS: piperacillin-tazobactam 3.375 GM in sodium chloride 0.9% (plus) 50 ML IV ×3 (02:44→18:19)
[2023-07-28 05:35] LABS: Basophils % 0.2 %; Eosinophils % 0.9 %; Hematocrit 36.8 % (37-53); Lymphocytes # 1.4 10^3/uL (0.8-4.8); Lymphocytes % 31.4 %; Mean Corpuscular HGB Conc 33.7 g/dL (30-55); Mean Corpuscular Hemoglobin 30.1 pg (27-33); Mean Corpuscular Volume 89.3 fl (82-101); Mean Platelet Volume 9.6 fL (7.4-10.4); Monocytes # 0.9 10^3/uL (0.2-0.9); Monocytes % 20.8 %; Neutrophils # 1.97 10^3/uL (1.8-7.7); Neutrophils % 45.1 %; Nucleated Red Blood Cells % 0 %; Platelet Count 169 10^3/cmm (157-399); Red Blood Count 4.12 10^6/uL (3.85-5.65); Red Cell Distribution Width 13.1 % (12.1-15.1); White Blood Count 4.37 10^3/uL (3.29-11.43)
[2023-07-28 05:52] LABS: Alanine Aminotransferase 9 U/L (0-41); Alkaline Phosphatase 115 U/L (40-130); Anion Gap 13.7 (5-19); Aspartate Amino Transferase 28 U/L (0-40); Blood Urea Nitrogen 11 mg/dL (8-23); Calcium 8.4 mg/dL (8.5-10.5); Carbon Dioxide 24 mmol/L (22-29); Chloride 104 mmol/L (98-107); Globulin 2.7 g/dL (1.3-4.6); Glucose 91 mg/dL (65-115); Magnesium 2.2 mg/dL (1.7-2.3); Osmolality Calculated 285 mOsm/kg (285-295); Potassium 3.7 mmol/L (3.5-5.1); Sodium 138 mmol/L (136-145); Total Bilirubin 1.3 mg/dL (0.15-1.2); Total Protein 6.7 g/dL (6.6-8.7)
[2023-07-28] MEDS: aspirin 81 mg EC Tablet PO (09:27)
[2023-07-28] MEDS: tamsulosin 0.4 mg Capsule PO (09:27)
[2023-07-28] MEDS: lisinopril 10 mg Tablet PO (09:27)
[2023-07-28] MEDS: levothyroxine 100 mcg Tablet PO (09:27)
[2023-07-28] MEDS: neomycin-poly-dex Op oint 3.5 gm 1 APPLIC EYE-LEFT ×3 (09:29→20:34)
--- NOTE | 2023-07-28 10:07 | PC.CHAP ---
Pastoral Care Encounter/Spiritual Assessment Type of Contact [] Declined combination man visit [] Patient/Family/Request visit [] Outpatient visit [] Follow-up visit [] Physician referral [] Code/Alert [x] Routine visit [] Staff referral [] Actively dying [] Patient sleeping [] Family support [] [] Out of room [] Palliative care [] [x] Receiving care in room [] Pre-surgical visit [] Trauma [] Long length of stay [] ICU visit [] Other: Relational/Emotional Strength [x] Patient feels connected with others/family/visitors/staff [] Distress [] Loneliness/isolation [] Abandonment Spirituality of Patient [x] Person of [place] [] Attends Roman Catholic of their [place] [x] Believes in Prayer [] Reads Bible or Jehovah'S Witness materials [] There are Spiritual issues to be addressed Food And Beverage Assistant Manager Interventions [x] Prayer [x] Active listening [x] Non-anxious presence [x] Spiritual/emotional support [] Crisis/trauma care [x] Spiritual counseling [] Bereavement support [] Provided bereavement packet [] Provided Bible/devotional materials [] Provided toy/stuffed animal, coloring book to patient or family member [] Provided Communion [] Anointing/[place] [] Salvation [x] Completed spiritual assessment [] Other: Impact on Illness or Injury [] Angry [] Fearful [] Anxious [] Often cries [] Exhaustion [] Unable to work [] Unable to attend protestant [] Unable to walk/stand [] Unable to read [] Unable to drive [] Unable to eat/drink [] Unable to sleep [] Unable to be with family [] Patient intubated [] Other: Summary +2 family they are working with doctors he is unable to communicate not sure what needs to done? Time spent with patient 10 mins
[2023-07-28] MEDS: haloperidol inj 5 mg/mL INJ 1 mL 1 MG IM (11:43)
[2023-07-28] MEDS: haloperidol inj 5 mg/mL INJ 1 mL 2 MG IM (12:07)
[2023-07-28] MEDS: dexmedetomidine 400 MCG in sodium chloride 0.9% (100 ml) 100 ML IV (12:43)
--- NOTE | 2023-07-28 12:45 | PC.NURSE ---
Notified Dr. 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 Haldol was ordered for patient Notified Dr. Banegas to come see patient due to more aggressiveness with 4 people in room keeping patient from hurting himself and others. Haldol ordered by Dr. Banegas. Dr. Banegas here to see patient and and order restraints. Patient is to be moved to ICU. Covid and bladderscan/strait cath not done due to patient being agressive with staff and family.
--- NOTE | 2023-07-28 12:46 | PC.NURSE ---
Addendum entered by Beny Rivera RN 07/28/23 13:16: Patient agitated, pulling at lines, has been hitting staff members, trying to get out of bed, making situation unsafe for staff and patient, kicking at 1:1 sitter. Original Note: To ICU at this time via bed and med surg staff, accompanied by and daughter. Patient confused/agitated, bilateral wrist restraints. Precedex drip started.
--- NOTE | 2023-07-28 12:48 | PC.NURSE ---
Report called to Marshan in ICU. Notified ICU of Bladder scan and straight cath not done.
--- NOTE | 2023-07-28 13:04 | P.PN_ITS ---
Subjective Subjective: This morning he was doing better. Appeared calmer, more interactive. Denies pain or discomfort. No difficulty breathing. Later in the afternoon episode of agitation Vitals/I&O/Wt Last Vital Signs Temp 98.0 F 07/28/23 07:47 Pulse 70 07/28/23 08:35 Resp 17 07/28/23 07:47 BP 155/81 07/28/23 07:47 Pulse Ox 93 07/28/23 08:35 O2 Del Method Room Air 07/28/23 08:35 07/27/23 07/28/23 07/28/23 22:59 06:59 14:59 Intake Total 100 / 100 0.135 / 0.135 Balance 100 / 100 0.135 / 0.135 Weight last 48 hrs Weight 78.018 kg Physical Exam Narrative: Treatment visit he is calm, makes eye contact, answer some questions. However, when left alone still reaching out to grab something in the air, looking around the ceiling and jansen. Accompanied by and granddaughter. Const: COMMON NORMALS: alert; negative for patient oriented x3 GENERAL APPEARANCE: cooperative ORIENTA TION/CONSCIOUSNESS: Yes awake and Yes confused HENMT: COMMON NORMALS: oropharynx normal Neck/C-Spine: COMMON NORMALS: no JVD Resp: COMMON NORMALS: normal respiratory effort and clear to auscultation bilaterally AUSCULTATION: clear to auscultation bilaterally Cardio: COMMON NORMALS: no JVD, regular rhythm, S1 normal heart sound present, S2 normal heart sound present and No murmurs present (Cardio) RHYTHM: regular rhythm HEART SOUNDS: S1 normal heart sound present and S2 normal heart sound present GI: COMMON NORMALS: Normal to inspection, nondistended, normoactive bowel sounds present, Soft to palpation and non-tender PALPATION: Yes Soft to palpation Extremity: COMMON NORMALS: no joint enlargement and no pedal edema Neuro: COMMON NORMALS: moves all extremities; negative for patient oriented x3 SENSORIUM/ORIENTATION: Yes alert OTHER: No rigidity. Skin: COMMON NORMALS: no rashes or lesions noted GENERAL SKIN EXAM: no rashes or lesions noted Data 07/28/23 05:11 07/28/23 05:11 A&P Assessment and plan (1) Altered mental status: Acute episode of agitation per history provided by nursing staff in the afternoon even though in the morning was doing better. Insufficient response to 0.5 mg Haldol. Ordered additional 2 mg Haldol. Soft restraints had to be placed. Trying to kick staff. Transferred to ICU for closer monitoring and treatment, Precedex drip. Will add scheduled olanzapine nightly. We had previously discussed with family regarding increased mortality risk with antipsychotics, and his was agreeable to use. We tried to go without it, however, he is at the moment a danger to self and/or others. Continue to hold trazodone. Continue bladder scans and cath. Continue supportive care Reviewed chest CT. Requested COVID PCR. Acute mental status change, with hallucinations, confusion, fusion, yesterday also had a fall. He is unable to provide history. History is to be obtained from his family. Acute encephalopathy, with acute delirium, etiology not entirely clear, however, discussed with his as well as relative/neighbor who is accompanying them considerations of acute delirium possibly secondary to medication, will hold trazodone at this time, additionally had a procedure yesterday, unclear if he got some sedation for that. There is some swelling on the left side of the eye, left side cheek, but does not appear to have any signs of orbital cellulitis. No trouble with eye movement, no eye pain. We will continue Polysporin. Reassess symptoms. There is a question of possible pneumonia, right lower lobe appears to have a similar infiltrate during prior admission with pneumonia. At that time he also had encephalopathy. For now empirically Zosyn as cannot exclude some aspiration. However, if improving, de-escalate antibiotic. As per discussion with family does sound like he may be having some underlying dementia making him more prone to encephalopathy and delirium. He otherwise does not appear to have UTI this time although did have some retention of urine noted and did have a straight cath. At this time would not be safe to try to place a Dove catheter. We will have to reassess with bladder scans. Does require one-to-one sitter. Additionally question of possible hypertensive encephalopathy as he is quite hypertensive. Received labetalol in ER. For now as he appears to be too confused to safely take medications we will keep n.p.o., start on scheduled hydralazine with holding parameters. (2) Accelerated hypertension: With possible hypertensive encephalopathy. As above. (3) Hallucinations: Plan Swelling of left lateral eyelids, left cheek: With some improvement today. No evidence of orbital cellulitis at this time on CT head. Continue Polysporin, additionally on Zosyn as above. Reassess. Remote history of EtOH: This reportedly was a long time ago. No EtOH or currently recently. Discussed with case management. Attestations Medical Necessity Statement*: Continue admission for assessment management of delirium, severe agitation, danger to self and others at the moment, requiring physical and chemical restraints, closer supervision, moved to intensive care unit. Diagnoses Altered mental status R41.82 Accelerated hypertension I10 Hallucinations R44.3
[2023-07-28] MEDS: LORazepam 2 mg/mL INJ 1 mL 0.5 MG IVP (13:42)
[2023-07-28] MEDS: dexmedetomidine 400 MCG in sodium chloride 0.9% (100 ml) 100 ML 8.11 MCG IV (18:23)
[2023-07-28] MEDS: nicotine 21 mg Patch 1 PATCH TRANSDERMA (19:24)
[2023-07-28 21:07] LABS: Adenovirus Not Detected (NOT DETECT); Chlamydia Pneumoniae Not Detected (NOT DETECT); Coronavirus 229E,HKU1,NL63,OC4 Not Detected (NOT DETECT); Human Metapneumovirus Not Detected (NOT DETECT); Human Rhinovirus/Enterovirus Not Detected (NOT DETECT); Influenza A Not Detected (NOT DETECT); Influenza A H1 Not Detected (NOT DETECT); Influenza A H1-2009 Not Detected (NOT DETECT); Influenza A H3 Not Detected (NOT DETECT); Influenza B Not Detected (NOT DETECT); Mycoplasma Pneumoniae Not Detected (NOT DETECT); Parainfluenza Virus Type 1 Not Detected (NOT DETECT); Parainfluenza Virus Type 2 Not Detected (NOT DETECT); Parainfluenza Virus Type 3 Not Detected (NOT DETECT); Parainfluenza Virus Type 4 Not Detected (NOT DETECT); Respiratory Syncytial Virus A Not Detected (NOT DETECT); Respiratory Syncytial Virus B Not Detected (NOT DETECT); SARS-COV-2 Not Detected (NOT DETECT)
--- NOTE | 2023-07-28 21:23 | PC.NURSE ---
Oral Zyprexa Oral zyprexa not administered due to patient's inability to follow commands and swallow. Dr. Botello notified; see MAR for details.
[2023-07-28] MEDS: sodium chloride 0.9% 500 ML 999 ML IV (22:22)
--- NOTE | 2023-07-28 22:30 | PC.NURSE ---
Addendum entered by Arely Aquino RN 07/29/23 00:24: Order also received to check lactic acid. Original Note: Blood Pressure Patient's blood pressure MAP ranging from 57-65. Precedex titrated off accordingly. Cheetah assessment performed; patient not fluid responsive at 0.3%. Dr. Botello contacted and order received for 500 ml NS bolus IV once. See MAR for details.
[2023-07-28 23:01] LABS: Lactic Sepsis W/Reflex 0.9 mmol/L (0.5-2.2)
[2023-07-29] VITALS (53 sets, daily range): BP systolic 96–169; BP diastolic 53–114; PULSE 61–99; RESP 14–36; TEMP 36.6–36.7; O2SAT 90–97; BMI 21.2
[2023-07-29] MEDS: hyDRALAzine 20 mg/mL INJ 1 mL 5 MG IVP ×2 (01:02→04:23)
[2023-07-29] MEDS: piperacillin-tazobactam 3.375 GM in sodium chloride 0.9% (plus) 50 ML IV ×3 (02:36→19:53)
[2023-07-29 04:54] LABS: Basophils % 0.2 %; Eosinophils # 0.1 10^3/uL (0.0-0.8); Eosinophils % 1.1 %; Hematocrit 37.2 % (37-53); Lymphocytes # 1.4 10^3/uL (0.8-4.8); Mean Corpuscular HGB Conc 32.8 g/dL (30-55); Mean Corpuscular Hemoglobin 29.8 pg (27-33); Mean Corpuscular Volume 90.7 fl (82-101); Mean Platelet Volume 9.9 fL (7.4-10.4); Monocytes # 0.8 10^3/uL (0.2-0.9); Nucleated Red Blood Cells % 0 %; Platelet Count 175 10^3/cmm (157-399); Red Cell Distribution Width 13.2 % (12.1-15.1); White Blood Count 4.49 10^3/uL (3.29-11.43)
[2023-07-29 05:19] LABS: Alanine Aminotransferase 10 U/L (0-41); Albumin Level 3.2 g/dL (3.5-5.2); Alkaline Phosphatase 101 U/L (40-130); Anion Gap 15.7 (5-19); Aspartate Amino Transferase 29 U/L (0-40); Blood Urea Nitrogen 18 mg/dL (8-23); Calcium 8.1 mg/dL (8.5-10.5); Carbon Dioxide 19 mmol/L (22-29); Chloride 108 mmol/L (98-107); Globulin 3.5 g/dL (1.3-4.6); Glucose 77 mg/dL (65-115); Osmolality Calculated 289 mOsm/kg (285-295); Potassium 3.7 mmol/L (3.5-5.1); Sodium 139 mmol/L (136-145); Total Protein 6.7 g/dL (6.6-8.7)
[2023-07-29 05:34] LABS: Vitamin B12 395 pg/mL (232-1245)
[2023-07-29 05:50] LABS: Folate Level > 20.0 ng/mL (4.5-32.2)
[2023-07-29] MEDS: tamsulosin 0.4 mg Capsule PO ×2 (08:19→17:36)
[2023-07-29] MEDS: aspirin 81 mg EC Tablet PO (08:19)
[2023-07-29] MEDS: levothyroxine 100 mcg Tablet PO (08:19)
[2023-07-29] MEDS: lisinopril 10 mg Tablet PO (08:19)
[2023-07-29] MEDS: nicotine 21 mg Patch 1 PATCH TRANSDERMA (08:19)
[2023-07-29] MEDS: neomycin-poly-dex Op oint 3.5 gm 1 APPLIC EYE-LEFT ×3 (08:20→20:45)
--- NOTE | 2023-07-29 15:05 | P.PN_ITS ---
Subjective Subjective: Today he is much calmer. Cooperative. Still going off on confabulative tangents, but interacts easier. Eating breakfast. Denies pain or discomfort. Denies difficulty breathing. Vitals/I&O/Wt Last Vital Signs Temp 98.1 F 07/29/23 14:00 Pulse 83 07/29/23 14:00 Resp 23 H 07/29/23 14:00 BP 126/72 07/29/23 14:00 Pulse Ox 96 07/29/23 14:00 O2 Del Method Room Air 07/29/23 14:00 O2 Flow Rate 2 07/29/23 04:15 07/29/23 07/29/23 07/29/23 06:59 14:59 22:59 Intake Total 600 / 732.497 600 / 600 Output Total 475 / 475 Balance 600 / 732.497 125 / 125 Weight last 48 hrs Weight 77.111 kg Physical Exam Narrative: Accompanied by and daughter. Const: COMMON NORMALS: alert; negative for patient oriented x3 GENERAL APPEARANCE: cooperative ORIENTATION/CONSCIOUSNESS: Yes awake and Yes confused HENMT: COMMON NORMALS: oropharynx normal Eye: OTHER: Swelling, bruise inferior lateral to the left eye, suture and lateral canthus, some ecchymosis off lower conjunctiva. Swelling significantly improved. Bruising with some yellowing. No redness. He denies pain. No difficulties with eye movements. Neck/C-Spine: COMMON NORMALS: no JVD Resp: COMMON NORMALS: normal respiratory effort and clear to auscultation b ilaterally AUSCULTATION: clear to auscultation bilaterally Cardio: COMMON NORMALS: no JVD, regular rhythm, S1 normal heart sound present, S2 normal heart sound present and No murmurs present (Cardio) RHYTHM: regular rhythm HEART SOUNDS: S1 normal heart sound present and S2 normal heart sound present GI: COMMON NORMALS: Normal to inspection, nondistended, normoactive bowel sounds present, Soft to palpation and non-tender PALPATION: Yes Soft to palpation Extremity: COMMON NORMALS: no joint enlargement and no pedal edema Neuro: COMMON NORMALS: moves all extremities; negative for patient oriented x3 SENSORIUM/ORIENTATION: Yes alert OTHER: No rigidity. Skin: COMMON NORMALS: no rashes or lesions noted GENERAL SKIN EXAM: no rashes or lesions noted Data 07/29/23 04:33 07/29/23 04:33 A&P Assessment and plan (1) Altered mental status: Today appears to be improving. Obtaining history from his family he is more responsive, more lucid, although reportedly getting somewhat snippy with his . No noted agitation or combative behavior. He denies any complaints. Last night family also gave history that he uses chewing tobacco, was started on nicotine patch. Discussed again regarding antipsychotic medication with family. Continue Oral Zyprexa for now. Weaned off Precedex drip. Stop precedex. Transfer for continued care on medical surgical floor. Continue bladder scans. Monitor for urinary retention. Reviewed COVID PCR, noted negative. continue empiric antibiotic for now for possible component of pneumonia. We will check procalcitonin. continue to optimize hypertension with possible component of hypertensive encephalopathy. Blood pressures are much better. 126/72 this afternoon. She is able to resume oral medications. Continue lisinopril. Stop IV hydralazine. Add amlodipine. Hold trazodone. Assessed by PT and OT. Acute mental status change, with hallucinations, confusion, fusion, Day before admission also had a fall. No evidence of orbital cellulitis. Fall precautions. (2) Accelerated hypertension: With possible hypertensive encephalopathy. As above. (3) Hallucinations: Plan Swelling of left lateral eyelids, left cheek: Improving. Swelling Subsiding. Bruising with some yellowish discoloration. No pain. EOMI. mild chemosis lower conjunctiva. No evidence of orbital cellulitis on CT head. Continue Polysporin, additionally on Zosyn as above. Reassess. Remote history of EtOH: This reportedly was a long time ago. No EtOH or currently recently. Chewing tobacco use: Nicotine patch Discussed with case management on several occasions today. Attestations Medical Necessity Statement*: Continue admission for assessment management of acute encephalopathy, treatment of pneumonia, optimization of hypertension control with suspected component of hypertensive encephalopathy, possible toxic medication effect. Post discharge planning and assessment. Diagnoses Altered mental status R41.82 Accelerated hypertension I10 Hallucinations R44.3
[2023-07-29] MEDS: LORazepam 2 mg/mL INJ 1 mL 0.5 MG IVP ×2 (17:36→22:00)
--- NOTE | 2023-07-29 17:43 | PC.NURSE ---
agitation, confusion Patient with increased agitation, confusion, anxiety. Patient states, I can't stay here, I'm having too much anxiety . Patient wanting to go home. Patient arguing with family and demanding they take him home. Patient currently alert to self at this time. Patient given 0.5 mg IVP Ativan PRN.
[2023-07-29] MEDS: haloperidol inj 5 mg/mL INJ 1 mL 3 MG IM (18:33)
[2023-07-29] MEDS: OLANZapine 5 mg TABLET PO (20:44)
[2023-07-29] MEDS: dexmedetomidine 400 MCG in sodium chloride 0.9% (100 ml) 100 ML IV (20:51)
[2023-07-30] VITALS (22 sets, daily range): BP systolic 83–176; BP diastolic 44–118; PULSE 50–85; RESP 13–36; TEMP 36.6–36.7; O2SAT 92–100; BMI 21.4
--- NOTE | 2023-07-30 01:07 | PC.NURSE ---
Addendum entered by Cassandra Benitez RN 07/30/23 04:03: At 2034, This nurse messaged Dr. Botello on [facility] to make him aware of pt's increased confusion, agitation, and attempts to get out of bed. Dr. Botello ordered precedex dripp to be restarted. Original Note: In report, this nurse was informed that pt was alert and oriented at the beginning of shift , but had become increasingly more disoriented/confused as the afternoon wore on. Beny RN gave IM haldol and IVP ativan before giving this nurse report. Pt continued to get agitated, hallucinate, and become more difficult to keep in his bed. The pt was placed within sight of nurse's station and bed alarm was turned on. Pt repeatedly attempted to get out of bed. When this nurse gave pt his nightly zyprexa (at 2044), the pt attempted to bite this nurse's finger. When this nurse informed the pt that he could not bite my fingers and needed to put the straw in his mouth to swallow the pill. This nurse was holding the straw towards the pt's mouth and told the pt to take a drink to swallow the pill he put in his mouth. The pt slapped this nurse's hand and said move that out of my face! This nurse educated pt that he had placed a pill in his own mouth, and this nurse was holding the water to swallow said pill. Eventually, the pt swallowed the pill. This nurse could not see the pill in the pt's mouth and pt stated he swallowed it. About 10 minutes later, the pt spit in the floor. When this nurse asked pt why he was spitting, pt stated I had to get that slime out of my mouth! Pt educated not to spit on the floor or towards staff. Pt informed if he needed to spit, he could inform staff and a cup or napkin would be provided.
[2023-07-30] MEDS: piperacillin-tazobactam 3.375 GM in sodium chloride 0.9% (plus) 50 ML IV ×2 (03:28→10:17)
[2023-07-30] MEDS: LORazepam 2 mg/mL INJ 1 mL 0.5 MG IVP ×2 (03:29→18:03)
[2023-07-30 05:01] LABS: Basophils % 0.3 %; Eosinophils # 0.1 10^3/uL (0.0-0.8); Eosinophils % 2.7 %; Hematocrit 37.5 % (37-53); Lymphocytes # 1.5 10^3/uL (0.8-4.8); Lymphocytes % 40.8 %; Mean Corpuscular HGB Conc 33.9 g/dL (30-55); Mean Corpuscular Hemoglobin 29.9 pg (27-33); Mean Corpuscular Volume 88.2 fl (82-101); Mean Platelet Volume 9.8 fL (7.4-10.4); Monocytes # 0.6 10^3/uL (0.2-0.9); Neutrophils # 1.48 10^3/uL (1.8-7.7); Neutrophils % 39.6 %; Nucleated Red Blood Cells % 0 %; Platelet Count 179 10^3/cmm (157-399); Red Blood Count 4.25 10^6/uL (3.85-5.65); Red Cell Distribution Width 13.2 % (12.1-15.1); White Blood Count 3.73 10^3/uL (3.29-11.43)
[2023-07-30 05:19] LABS: Alanine Aminotransferase 11 U/L (0-41); Albumin Level 3.7 g/dL (3.5-5.2); Alkaline Phosphatase 98 U/L (40-130); Anion Gap 14.3 (5-19); Aspartate Amino Transferase 30 U/L (0-40); Blood Urea Nitrogen 15 mg/dL (8-23); Calcium 8.6 mg/dL (8.5-10.5); Carbon Dioxide 24 mmol/L (22-29); Chloride 107 mmol/L (98-107); Globulin 3.1 g/dL (1.3-4.6); Glucose 88 mg/dL (65-115); Osmolality Calculated 294 mOsm/kg (285-295); Potassium 3.3 mmol/L (3.5-5.1); Sodium 142 mmol/L (136-145); Total Bilirubin 0.8 mg/dL (0.15-1.2); Total Protein 6.8 g/dL (6.6-8.7)
[2023-07-30 05:27] LABS: Procalcitonin 0.05 ng/mL (0-0.5)
[2023-07-30] MEDS: nicotine 21 mg Patch 1 PATCH TRANSDERMA (08:01)
[2023-07-30] MEDS: lisinopril 10 mg Tablet PO (08:01)
[2023-07-30] MEDS: aspirin 81 mg EC Tablet PO (08:01)
[2023-07-30] MEDS: levothyroxine 100 mcg Tablet PO (08:01)
[2023-07-30] MEDS: tamsulosin 0.4 mg Capsule PO ×2 (08:01→18:02)
[2023-07-30] MEDS: neomycin-poly-dex Op oint 3.5 gm 1 APPLIC EYE-LEFT ×3 (08:02→21:38)
--- NOTE | 2023-07-30 08:58 | PC.NURSE ---
am breakfast feed this am some confusion remains incontinent of urine at this time .. changed and baldo care done noted redness on bottom ointment applied at this time
[2023-07-30] MEDS: potassium chloride ER 20 mEq Tablet PO (10:17)
--- NOTE | 2023-07-30 10:19 | P.PN_ITS ---
Subjective Subjective: She had a difficult evening yesterday. Today he is calm, awake, alert, denies pain or discomfort. Knows he is at [place]. Does not remember the year. Vitals/I&O/Wt Last Vital Signs Temp 98 F 07/30/23 08:30 Pulse 72 07/30/23 08:30 Resp 27 H 07/30/23 08:30 BP 160/84 07/30/23 08:30 Pulse Ox 95 07/30/23 08:30 O2 Del Method Room Air 07/30/23 08:00 O2 Flow Rate 2 07/29/23 04:15 07/29/23 07/30/23 07/30/23 22:59 06:59 14:59 Intake Total 295.617 / 895.617 78.08 / 973.697 300 / 300 Output Total 200 / 675 Balance 95.617 / 220.617 78.08 / 298.697 300 / 300 Weight last 48 hrs Weight 78.018 kg Weight 77.111 kg Physical Exam Const: COMMON NORMALS: alert GENERAL APPEARANCE: cooperative ORIENTATION/CONSCIOUSNESS: Yes awake HENMT: COMMON NORMALS: oropharynx normal Eye: OTHER: Swelling, bruise inferior lateral to the left eye, suture and lateral canthus, some ecchymosis off lower conjunctiva. Swelling significantly improved. Bruising with some yellowing. No redness. He denies pain. No difficulties with eye movements. Neck/C-Spine: COMMON NORMALS: no JVD Resp: COMMON NORMALS: normal respiratory effort and clear to auscultation bilaterally AUSCULTATION: clear to auscultation bilaterally Cardio: COMMON NORMALS: no JVD, regular rhythm, S1 normal heart sound present, S2 normal heart sound present and No murmurs present (Cardio) RHYTHM: regular rhythm HEART SOUNDS: S1 normal heart sound present and S2 normal heart sound present GI: COMMON NORMALS: Normal to inspection, nondistended, normoactive bowel sounds present, Soft to palpation and non-tender PALPATION: Yes Soft to palpation Extremity: COMMON NORMALS: no joint enlargement and no pedal edema Neuro: COMMON NORMALS: moves all extremities SENSORIUM/ORIENTATION: Yes alert OTHER: No rigidity. Skin: COMMON NORMALS: no rashes or lesions noted GENERAL SKIN EXAM: no rashes or lesions noted Data 07/30/23 04:20 07/30/23 04:20 A&P Assessment and plan (1) Altered mental status: Difficult evening last night, became agitated, required precedex. Weaned off. He spat out olanzapine. Switch to IM. Continue 1:1 at this time. Procalcitonin reviewed. WBC reviewed. Afebrile. On RA. Stop Zosyn. He denies any complaints. Cont nicotine patch. Weaned off Precedex drip. DC precedex. Transfer for continued care on medical surgical floor. Cont nightly Olanzapine IM for now. As needed Haldol, low-dose Ativan. Continue bladder scans. Monitor for urinary retention. COVID PCR, noted negative. Reviewed case management note. Continue to optimize hypertension with possible component of hypertensive encephalopathy. Blood pressures are much better. Resume oral medications. Continue lisinopril. Stop IV hydralazine. Started amlodipine. Hold trazodone. PT and OT. Acute mental status change, with hallucinations, confusion, fusion, Day before admission also had a fall. No evidence of orbital cellulitis. Fall precautions. (2) Accelerated hypertension: With possible hypertensive encephalopathy. As above. (3) Hallucinations: Plan Hypokalemia noted on review of chemistry. Give potassium. Recheck chemistry. Swelling of left lateral eyelids, left cheek: Improving. Swelling Subsiding. Bruising with some yellowish discoloration. No pain. EOMI. mild chemosis lower conjunctiva. No evidence of orbital cellulitis on CT head. Continue Polysporin, additionally on Zosyn as above. Reassess. Remote history of EtOH: This reportedly was a long time ago. No EtOH or currently recently. Chewing tobacco use: Nicotine patch Attestations Medical Necessity Statement*: Continue admission for assessment management of acute encephalopathy, optimiz ation of hypertension control with suspected component of hypertensive encephalopathy, possible toxic medication effect.? Post discharge planning and assessment. Diagnoses Altered mental status R41.82 Accelerated hypertension I10 Hallucinations R44.3
--- NOTE | 2023-07-30 12:09 | PC.NURSE ---
transfer to floor room 268
[2023-07-30] MEDS: haloperidol inj 5 mg/mL INJ 1 mL 3 MG IM (15:41)
[2023-07-30] MEDS: amlodipine 5 mg Tablet PO (18:02)
[2023-07-30] MEDS: OLANZapine 10 mg VIAL 5 MG IM (21:38)
[2023-07-31] VITALS: BP 157/82; PULSE 89; RESP 18; TEMP 36.4; O2SAT 91
[2023-07-31 04:00] VITALS: BP 160/79; PULSE 88; RESP 17; TEMP 36.3; O2SAT 91
[2023-07-31 05:17] LABS: Basophils % 0.3 %; Eosinophils # 0.1 10^3/uL (0.0-0.8); Eosinophils % 1.3 %; Hematocrit 38.2 % (37-53); Lymphocytes # 1.2 10^3/uL (0.8-4.8); Lymphocytes % 31.5 %; Mean Corpuscular HGB Conc 33.5 g/dL (30-55); Mean Corpuscular Hemoglobin 29.3 pg (27-33); Mean Corpuscular Volume 87.4 fl (82-101); Mean Platelet Volume 9.8 fL (7.4-10.4); Monocytes # 0.7 10^3/uL (0.2-0.9); Monocytes % 18.5 %; Neutrophils # 1.87 10^3/uL (1.8-7.7); Neutrophils % 47.9 %; Nucleated Red Blood Cells % 0 %; Platelet Count 197 10^3/cmm (157-399); Red Blood Count 4.37 10^6/uL (3.85-5.65); Red Cell Distribution Width 13.1 % (12.1-15.1)
[2023-07-31 05:43] LABS: Anion Gap 17.4 (5-19); Blood Urea Nitrogen 8 mg/dL (8-23); Calcium 8.5 mg/dL (8.5-10.5); Carbon Dioxide 22 mmol/L (22-29); Chloride 108 mmol/L (98-107); Glucose 91 mg/dL (65-115); Osmolality Calculated 296 mOsm/kg (285-295); Potassium 3.4 mmol/L (3.5-5.1); Sodium 144 mmol/L (136-145)
[2023-07-31 07:35] VITALS: BP 170/92
[2023-07-31 07:55] VITALS: PULSE 87; RESP 18; O2SAT 97
[2023-07-31] MEDS: levothyroxine 100 mcg Tablet PO (09:31)
[2023-07-31] MEDS: nicotine 21 mg Patch 1 PATCH TRANSDERMA (09:31)
[2023-07-31] MEDS: lisinopril 10 mg Tablet PO (09:31)
[2023-07-31] MEDS: amlodipine 5 mg Tablet PO (09:31)
[2023-07-31] MEDS: tamsulosin 0.4 mg Capsule PO ×2 (09:31→18:15)
[2023-07-31] MEDS: aspirin 81 mg EC Tablet PO (09:31)
[2023-07-31] MEDS: potassium chloride ER 20 mEq Tablet PO (10:28)
[2023-07-31] MEDS: neomycin-poly-dex Op oint 3.5 gm 1 APPLIC EYE-LEFT ×3 (10:28→21:21)
--- NOTE | 2023-07-31 10:57 | PC.PT ---
Patient was very confused. He did not follow directions nor attempts to get attention to therapy. He continues to kick his feet as if he was driving a car and I was unable to adjust attention. 1v1 sitter stated that this activity had been going on all morning. I tried again and was unable to secure anything meaningful. Patient continued to push extensors into bed and peddle the air like gas and brake pedal to vehicle.
--- NOTE | 2023-07-31 15:50 | P.PN_ITS ---
Subjective Subjective: He denies any pain or discomfort. He tells me currently that he is in [place] in the hospital, the year is 2022. Vitals/I&O/Wt Last Vital Signs Temp 97.4 F L 07/31/23 04:00 Pulse 87 07/31/23 07:55 Resp 18 07/31/23 07:55 BP 170/92 07/31/23 07:35 Pulse Ox 97 07/31/23 07:55 O2 Del Method Room Air 07/31/23 07:55 O2 Flow Rate 2 07/29/23 04:15 07/31/23 07/31/23 07/31/23 06:59 14:59 22:59 Intake Total 120 / 120 Balance 120 / 120 Weight last 48 hrs Weight 75.659 kg Weight 78.018 kg Physical Exam Narrative: Const: COMMON NORMALS: alert GENERAL APPEARANCE: cooperative ORIENTATION/CONSCIOUSNESS: Yes awake HENMT: COMMON NORMALS: oropharynx normal Eye: OTHER: Swelling, bruise inferior lateral to the left eye, suture and lateral canthus, some ecchymosis off lower conjunctiva. Swelling significantly improved. Bruising with some yellowing. No redness. He denies pain. No difficulties w ith eye movements. Neck/C-Spine: COMMON NORMALS: no JVD Resp: COMMON NORMALS: normal respiratory effort and clear to auscultation bilaterally AUSCULTATION: clear to auscultation bilaterally Cardio: COMMON NORMALS: no JVD, regular rhythm, S1 normal heart sound present, S2 normal heart sound present and No murmurs present (Cardio) RHYTHM: regular rhythm HEART SOUNDS: S1 normal heart sound present and S2 normal heart sound present GI: COMMON NORMALS: Normal to inspection, nondistended, normoactive bowel sounds present, Soft to palpation and non-tender PALPATION: Yes Soft to palpation Extremity: COMMON NORMALS: no joint enlargement and no pedal edema Neuro: COMMON NORMALS: moves all extremities SENSORIUM/ORIENTATION: Yes raza rt OTHER: No rigidity. Skin: COMMON NORMALS: no rashes or lesions noted GENERAL SKIN EXAM: no rashes or lesions noted Data 07/31/23 04:40 07/31/23 04:40 A&P Assessment and plan (1) Altered mental status: Acute encephalopathy appears to be improving. Last night still required Haldol, Ativan. Did receive Zyprexa. Today he appears to be calm, oriented. Still occasionally reaching for things, but does not appear to be hallucinating anymore by history obtained from one-to-one sitter. For now continue monitoring with one-to-one sitter, however, if continues to improve may be able to discontinue. Continue IM Zyprexa. CBC reviewed. Afebrile. Cont nicotine patch as uses chewing tobacco. As needed Haldol, low-dose Ativan. As needed bladder scans. Monitor for urinary retention. COVID PCR, noted negative. Reviewed case management note. Arrangements for SNF. Continue to optimize hypertension with possible component of hypertensive encephalopathy. Difficult to control blood pressure, yesterday morning noted hypotensive down to 83/44. Today more hypotensive. Reassess for any additional low blood pressur es. Continue lisinopril, amlodipine. Hold trazodone. PT and OT. Acute mental status change, with hallucinations, confusion, fusion, Day before admission also had a fall. Improving swelling inferolateral to left eye. Status post eye surgery. No evidence of orbital cellulitis. Follow-up with ophthalmology. Fall precautions. (2) Accelerated hypertension: With possible hypertensive encephalopathy. As above. (3) Hallucinations: Plan On review of chemistry noted again hypokalemia, 3.4. Supplement potassium. Recheck level. Check magnesium. Swelling of left lateral eyelids, left cheek: Improving. Swelling Subsiding. Bruising with some yellowish discoloration. No pain. EOMI. mild chemosis lower conjunctiva. No evidence of orbital cellulitis on CT head. Continue Polysporin, additionally on Zosyn as above. Reassess. Remote history of EtOH: This reportedly was a long time ago. No EtOH or cur rently recently. Chewing tobacco use: Nicotine patch Attestations Medical Necessity Statement*: Continue admission for assessment management of acute encephalopathy, optimization of hypertension control with suspected component of hypertensive encephalopathy, possible toxic medication effect.? Post discharge planning and assessment. Diagnoses Altered mental status R41.82 Accelerated hypertension I10 Hallucinations R44.3
[2023-07-31 20:00] VITALS: BP 150/85; PULSE 88; RESP 17; TEMP 36.4; O2SAT 94
[2023-07-31 20:29] VITALS: PULSE 88; RESP 16; O2SAT 96
[2023-07-31] MEDS: OLANZapine 10 mg VIAL 5 MG IM (21:20)
[2023-08-01] VITALS (8 sets, daily range): BP systolic 100–123; BP diastolic 61–70; PULSE 80–95; RESP 16–18; TEMP 36.3–37.3; O2SAT 90–95
[2023-08-01 05:22] LABS: Blood Urea Nitrogen 15 mg/dL (8-23); Calcium 8.7 mg/dL (8.5-10.5); Carbon Dioxide 22 mmol/L (22-29); Chloride 108 mmol/L (98-107); Glucose 84 mg/dL (65-115); Magnesium 2.2 mg/dL (1.7-2.3); Osmolality Calculated 298 mOsm/kg (285-295); Sodium 144 mmol/L (136-145)
[2023-08-01] MEDS: levothyroxine 100 mcg Tablet PO (08:16)
[2023-08-01] MEDS: aspirin 81 mg EC Tablet PO (08:16)
[2023-08-01] MEDS: lisinopril 10 mg Tablet PO (08:16)
[2023-08-01] MEDS: amlodipine 5 mg Tablet PO (08:16)
[2023-08-01] MEDS: tamsulosin 0.4 mg Capsule PO ×2 (08:16→17:11)
[2023-08-01] MEDS: nicotine 21 mg Patch 1 PATCH TRANSDERMA (08:17)
[2023-08-01] MEDS: neomycin-poly-dex Op oint 3.5 gm 1 APPLIC EYE-LEFT ×3 (08:17→20:50)
[2023-08-01] MEDS: fixodent 39 gm Tube 1 APPLIC DENTAL (11:09)
--- NOTE | 2023-08-01 14:21 | P.PN_ITS ---
Subjective Subjective: Patient is alert awake and oriented x3 today. He did not require any additional doses of Ativan or Haldol overnight is currently able to tell me his correct age date, date of and his whereabouts. He recognizes family members at bedside. reports that he continues to be significantly weak and does not think she can take care of him in his current state.. Medications: Reviewed: Yes Vitals/I&O/Wt Last Vital Signs Temp 98 F 08/01/23 12:00 Pulse 84 08/01/23 12:00 Resp 18 08/01/23 12:00 BP 123/70 08/01/23 12:00 Pulse Ox 94 08/01/23 12:00 O2 Del Method Room Air 08/01/23 08:00 O2 Flow Rate 2 07/29/23 04:15 07/31/23 08/01/23 08/01/23 22:59 06:59 14:59 Intake Total 120 / 240 360 / 360 Balance 120 / 240 360 / 360 Weight last 48 hrs Weight 74.707 kg Weight 75.659 kg Physical Exam Narrative: General: No acute distress, AO x3, overall frail and weak appearing HEENT: PERRLA, pupils bilaterally equal and reactive, pallors not present Chest: Normal vesicular breath sounds, no added sounds, equal good air entry bilaterally CVS: S1-S2 regular, no murmurs, no tachycardia, no gallops, no rubs Abdomen: Soft, nontender, no organomegaly, bowel sounds present Neuro: No focal deficits, no facial deformity, AO x3, power 5/5 in all limbs Data 07/31/23 04:40 08/01/23 04:20 A&P Assessment and plan (1) Altered mental status: Acute encephalopathy appears to be improving. Last received IM Haldol and Ativan on July 30, 2023. Since his mentation appears to be improving, will discontinue sitter today. Family is currently at bedside Patient is awake alert oriented x3, following all commands, recognizes family members. Family relates he may have some underlying dementia which is suspected perhaps converted to acute delirium after undergoing surgery but it appears he had been having some subtle memory changes even prior. We will transition IM Zyprexa to oral and assess for sustained mental status improvement.. Cont nicotine patch as uses chewing tobacco. As needed Haldol, low-dose Ativan. As needed bladder scans. Monitor for urinary retention. COVID PCR, noted negative. Reviewed case management note. Arrangements for SNF. Continue to optimize hypertension with possible component of hypertensive ence phalopathy. Currently blood pressure is well controlled Hold trazodone. PT and OT. Acute mental status change, with hallucinations, confusion, fusion, Day before admission also had a fall. Improving swelling inferolateral to left eye. Status post eye surgery, appears to be blepharoplasty per description.. No evidence of orbital cellulitis. Follow-up with ophthalmology. Continue local application of antibiotic ointment as prescribed from ophthalmology. Fall precautions. (2) Accelerated hypertension: With possible hypertensive encephalopathy. As above. Now resolved (3) Hallucinations: Appears to be resolved now Plan Remote history of EtOH: This reportedly was a long time ago. No EtOH or currently recently. Chewing tobacco use: Nicotine patch Attestations Medical Necessity Statement*: Awaiting appropriate disposition planning Coding Level of Care Code Acute Code for Chg Fwd Diagnoses Altered mental status R41.82 Accelerated hypertension I10 Hallucinations R44.3
--- NOTE | 2023-08-01 15:39 | PC.SOCIAL ---
IMM Update pg 2 of IMM not updated as patient is currently in observation status.
[2023-08-01] MEDS: OLANZapine 5 mg ODT PO (20:51)
[2023-08-02] VITALS (8 sets, daily range): BP systolic 94–178; BP diastolic 57–73; PULSE 72–96; RESP 14–19; TEMP 36.4–37.2; O2SAT 90–95
[2023-08-02 06:27] LABS: Anion Gap 16.9 (5-19); Blood Urea Nitrogen 31 mg/dL (8-23); Calcium 9.2 mg/dL (8.5-10.5); Carbon Dioxide 22 mmol/L (22-29); Chloride 105 mmol/L (98-107); Glucose 96 mg/dL (65-115); Osmolality Calculated 296 mOsm/kg (285-295); Potassium 3.9 mmol/L (3.5-5.1); Sodium 140 mmol/L (136-145)
[2023-08-02] MEDS: tamsulosin 0.4 mg Capsule PO ×2 (10:40→16:59)
[2023-08-02] MEDS: levothyroxine 100 mcg Tablet PO (10:41)
[2023-08-02] MEDS: aspirin 81 mg EC Tablet PO (10:41)
[2023-08-02] MEDS: neomycin-poly-dex Op oint 3.5 gm 1 APPLIC EYE-LEFT ×3 (10:47→20:15)
[2023-08-02] MEDS: sodium chloride 0.9% 1,000 ML 75 ML IV (10:48)
--- NOTE | 2023-08-02 17:17 | P.PN_ITS ---
Subjective Subjective: He is awake alert and oriented, however in the interim has developed HARJINDER. Creatinine at 1.9 today. He remains hemodynamically stable and afebrile. Medications: Reviewed: Yes Vitals/I&O/Wt Last Vital Signs Temp 97.5 F L 08/02/23 16:00 Pulse 81 08/02/23 16:00 Resp 19 H 08/02/23 16:00 BP 138/71 08/02/23 16:00 Pulse Ox 91 08/02/23 16:00 O2 Del Method Room Air 08/02/23 16:00 O2 Flow Rate 2 07/29/23 04:15 08/02/23 08/02/23 08/02/23 06:59 14:59 22:59 Intake Total 240 / 240 Balance 240 / 240 Weight last 48 hrs Weight 75.977 kg Weight 74.707 kg Physical Exam Narrative: General: No acute distress, AO x3, overall frail and weak appearing HEENT: PERRLA, pupils bilaterally equal and reactive, pallors not present Chest: Normal vesicular breath sounds, no added sounds, equal good air entry bilaterally CVS: S1-S2 regular, no murmurs, no tachycardia, no gallops, no rubs Abdomen: Soft, nontender, no organomegaly, bowel sounds present Neuro: No focal deficits, no facial deformity, AO x3, power 5/5 in all limbs Data 07/31/23 04:40 08/02/23 05:50 A&P Assessment and plan (1) Altered mental status: Acute encephalopathy appears to be improving. Last received IM Haldol and Ativan on July 30, 2023. Patient is awake alert oriented x3, following all commands, recognizes family members. Family relates he may have some underlying dementia which is suspected perhaps converted to acute delirium after undergoing eye surgery but it appears he had been having some subtle memory changes even prior. Ct head from admission with Moderate cerebral and cerebellar atrophy and mild small vessel ischemic disease, perhaps vascular dementia Continue po zyprexa 5 mg at bedtime HTN currently well controlled, trending towards hypotension this am, d/c lisinopril continue to hold trazodone TSH Normal no evidence of underlying infection CT chest w/out consolidation, UA unremarkable from admission, negative COVID PCR, afberile, no leukocytosis # HARJINDER New since admisison Perhaps related to dehydration as patient had poor p.o. intake for the initial few days of admission when he was confused and disoriented. Currently he has been started on a soft mechanical dysphagia 5 diet which she is tolerating. Encourage p.o. intake Started on IV fluids normal saline at 75 cc an hour, monitor serial renal funct ion Check UA Bladder scan to check for urinary retention monitor urine output hold lisinopril PT and OT appreciated Improving swelling inferolateral to left eye. Status post eye surgery, appears to be blepharoplasty per description.. No evidence of orbital cellulitis. Follow-up with ophthalmology. Continue local application of antibiotic ointment as prescribed from ophthalmology. Fall precautions. (2) Accelerated hypertension: With possible hypertensive encephalopathy. As above. Now resolved (3) Hallucinations: Appears to be resolved now Plan Remote history of EtOH: This reportedly was a long time ago. No EtOH or currently recently. Chewing tobacco use: Nicotine patch DVT ppx: lovenox 30 Attestations Medical Necessity Statement*: HARJINDER, start IV hydration , recheck kidney function with am labs Coding Level of Care Code Acute Code for Chg Fwd Diagnoses Altered mental status R41.82 Accelerated hypertension I10 Hallucinations R44.3
[2023-08-02] MEDS: enoxaparin 30 mg/0.3 mL Syringe SUBCUT (18:38)
--- NOTE | 2023-08-02 19:28 | PC.NURSE ---
Bladder scan showed 201, pt voided in diaper and voided in urinal 25 ml before bladder scan.
[2023-08-02 20:06] LABS: Bilirubin Urine 1+ (Negative); Blood Urine 2+ (Negative); Glucose Urine UA Norm (Normal); Ketones Urine 1+ (Negative); Nitrate Urine Negative (Negative); Protein Urine 1+ (Negative); Specific Gravity, Urine 1.025 (1.005-1.030); Urine Appearance Clear (CLEAR); Urine Color Yellow (Yellow); Urobilinogen Urine 1 mg/dL (Negative); pH Urine 5 (5-7)
[2023-08-02 20:07] LABS: Add Urine Microscopic? YES; Leukocyte Esterase Urine Negative (Negative)
[2023-08-02] MEDS: OLANZapine 5 mg ODT PO (20:15)
[2023-08-02 20:17] LABS: Bacteria Urine 2+ /hpf; RBC Urine 0-4 /hpf (0-2); Squamous Epithelial Cell Urine 0-4 /hpf (0-5); WBC Urine 0-4 /hpf (0-5)
[2023-08-02 20:18] LABS: Add Urine Culture? Yes; Calcium Oxalate Crystals Urine 25-40 /hpf
[2023-08-03] VITALS (8 sets, daily range): BP systolic 108–165; BP diastolic 68–88; PULSE 72–95; RESP 17–18; TEMP 36.4–36.8; O2SAT 92–95
[2023-08-03] MEDS: sodium chloride 0.9% 1,000 ML 75 ML IV ×2 (01:27→15:31)
[2023-08-03 09:11] LABS: Basophils % 0.2 %; Eosinophils # 0.1 10^3/uL (0.0-0.8); Hematocrit 38.2 % (37-53); Lymphocytes # 1.3 10^3/uL (0.8-4.8); Lymphocytes % 28.9 %; Mean Corpuscular HGB Conc 33.8 g/dL (30-55); Mean Corpuscular Hemoglobin 29.4 pg (27-33); Mean Platelet Volume 9.9 fL (7.4-10.4); Monocytes # 0.8 10^3/uL (0.2-0.9); Neutrophils # 2.14 10^3/uL (1.8-7.7); Neutrophils % 48.3 %; Nucleated Red Blood Cells % 0 %; Platelet Count 157 10^3/cmm (157-399); Red Blood Count 4.39 10^6/uL (3.85-5.65); White Blood Count 4.43 10^3/uL (3.29-11.43)
[2023-08-03 09:48] LABS: Alanine Aminotransferase 14 U/L (0-41); Albumin Level 3.5 g/dL (3.5-5.2); Alkaline Phosphatase 87 U/L (40-130); Blood Urea Nitrogen 26 mg/dL (8-23); Calcium 8.9 mg/dL (8.5-10.5); Carbon Dioxide 21 mmol/L (22-29); Chloride 105 mmol/L (98-107); Creatine Phosphokinase 178 U/L (39-308); Globulin 3.4 g/dL (1.3-4.6); Glucose 96 mg/dL (65-115); NT Pro B Type Natriuretic Pept 284 pg/mL (0-450); Osmolality Calculated 289 mOsm/kg (285-295); Sodium 137 mmol/L (136-145); Total Bilirubin 0.7 mg/dL (0.15-1.2); Total Protein 6.9 g/dL (6.6-8.7)
[2023-08-03 09:55] LABS: Anion Gap 14.9 (5-19); Aspartate Amino Transferase 25 U/L (0-40); Potassium 3.9 mmol/L (3.5-5.1)
[2023-08-03] MEDS: tamsulosin 0.4 mg Capsule PO ×2 (10:45→17:45)
[2023-08-03] MEDS: aspirin 81 mg EC Tablet PO (10:45)
[2023-08-03] MEDS: levothyroxine 100 mcg Tablet PO (10:46)
[2023-08-03] MEDS: amlodipine 5 mg Tablet PO (10:46)
[2023-08-03] MEDS: neomycin-poly-dex Op oint 3.5 gm 1 APPLIC EYE-LEFT ×3 (10:48→20:30)
[2023-08-03 12:14] LABS: SARS Covid-2 Antigen negative (Negative)
[2023-08-03] MEDS: LORazepam 2 mg/mL INJ 1 mL 0.5 MG IVP (15:00)
--- NOTE | 2023-08-03 15:49 | P.PN_ITS ---
Subjective Subjective: Linda resolved. Cr back at baseline. He remains alert and awake, though overall fatigued. Medications: Reviewed: Yes Vitals/I&O/Wt Last Vital Signs Temp 97.6 F 08/03/23 12:00 Pulse 78 08/03/23 12:00 Resp 18 08/03/23 12:00 BP 108/68 08/03/23 12:00 Pulse Ox 94 08/03/23 12:00 O2 Del Method Room Air 08/03/23 12:00 O2 Flow Rate 2 07/29/23 04:15 08/03/23 08/03/23 08/03/23 06:59 14:59 22:59 Intake Total 1000 / 1240 1120 / 1120 Balance 1000 / 1215 1120 / 1120 Weight last 48 hrs Weight 76.714 kg Weight 75.977 kg Physical Exam 2 Narrative: General: No acute distress, AO x3, overall frail and weak appearing HEENT: PERRLA, pupils bilaterally equal and reactive, pallors not present Chest: Normal vesicular breath sounds, no added sounds, equal good air entry bilaterally CVS: S1-S2 regular, no murmurs, no tachycardia, no gallops, no rubs Abdomen: Soft, nontender, no organomegaly, bowel sounds present Neuro: No focal deficits, overall fatigued and lethargic, no facial deformity, AAO x3, power 5/5 in all limbs Data 08/03/23 08:50 08/03/23 08:50 A&P Assessment and plan (1) Altered mental status: # Acute encephalopathy resolved. Patient is awake alert oriented x3, following all commands, recognizes family members. Family relates he may have some underlying dementia which is suspected perhaps converted to acute delirium after undergoing eye surgery but it appears he had been having some subtle memory changes even prior. Ct head from admission with Moderate cerebral and cerebellar atrophy and mild small vessel ischemic disease, perhaps vascular dementia Continue po zyprexa 5 mg at bedtime HTN currently well controlled, trending towards hypotension this am, d/c lisinopril continue to hold trazodone TSH Normal no evidence of underlying infection CT chest w/out consolidation, UA unremarkable from admission, negative COVID PCR, afberile, no leukocytosis # LINDA Now resolved with hydration Perhaps related to dehydration as patient had poor p.o. intake for the initial few days of admission when he was confused and disoriented. Currently he has been started on a soft mechanical dysphagia 5 diet which she is tolerating. Unclear reason overall for swallow difficulty, Check MBS. Family re ports that he was able to tolerate a regular diet Encourage p.o. intake Started on IV fluids normal saline, monitor serial renal function UA not concerning for UTI, ca ozlate crytsals noted, may have kidney stones though given resolution of LINDA, defer CT imaging for now monitor urine output continue to hold lisinopril PT and OT appreciated Improving swelling inferolateral to left eye. Status post eye surgery, appears to be blepharoplasty per description.. No evidence of orbital cellulitis. Follow-up with ophthalmology. Continue local application of antibiotic ointment as prescribed from ophthalmology. Fall precautions. (2) Accelerated hypertension: With possible hypertensive encephalopathy. As above. Now resolved (3) Hallucinations: Appears to be resolved now Plan Remote history of EtOH: This reportedly was a long time ago. No EtOH or currently recently. Chewing tobacco use: Nicotine patch DVT ppx: lovenox 30 Attestations Medical Necessity Statement*: pending appropriate disposition planning Coding Level of Care Code Acute Code for Chg Fwd Moderate MDM includes number and complexity of problems actively addressed during encounter, amount and/or complexity of data reviewed/ordered and describe d risk of complication, morbidity or mortality of management as documented Diagnoses Altered mental status R41.82 Accelerated hypertension I10 Hallucinations R44.3
[2023-08-03] MEDS: enoxaparin 30 mg/0.3 mL Syringe SUBCUT (17:45)
[2023-08-03] MEDS: OLANZapine 5 mg ODT PO (20:30)
[2023-08-04 03:30] VITALS: BP 145/74; PULSE 67; RESP 18; TEMP 36.7; O2SAT 96
[2023-08-04] MEDS: sodium chloride 0.9% 1,000 ML 75 ML IV (06:16)
[2023-08-04 06:52] LABS: Basophils % 0.2 %; Eosinophils # 0.1 10^3/uL (0.0-0.8); Eosinophils % 2.5 %; Lymphocytes # 1.3 10^3/uL (0.8-4.8); Lymphocytes % 31.9 %; Mean Corpuscular HGB Conc 33.7 g/dL (30-55); Mean Corpuscular Hemoglobin 29.7 pg (27-33); Mean Corpuscular Volume 88.2 fl (82-101); Mean Platelet Volume 9.9 fL (7.4-10.4); Monocytes # 0.9 10^3/uL (0.2-0.9); Neutrophils # 1.74 10^3/uL (1.8-7.7); Neutrophils % 42.9 %; Nucleated Red Blood Cells % 0 %; Platelet Count 174 10^3/cmm (157-399); Red Blood Count 3.97 10^6/uL (3.85-5.65); Red Cell Distribution Width 12.9 % (12.1-15.1); White Blood Count 4.05 10^3/uL (3.29-11.43)
[2023-08-04 07:22] LABS: Alanine Aminotransferase 12 U/L (0-41); Albumin Level 3.5 g/dL (3.5-5.2); Alkaline Phosphatase 84 U/L (40-130); Anion Gap 14.1 (5-19); Aspartate Amino Transferase 20 U/L (0-40); Blood Urea Nitrogen 18 mg/dL (8-23); Calcium 8.8 mg/dL (8.5-10.5); Carbon Dioxide 22 mmol/L (22-29); Chloride 106 mmol/L (98-107); Globulin 3.2 g/dL (1.3-4.6); Glucose 86 mg/dL (65-115); Osmolality Calculated 287 mOsm/kg (285-295); Potassium 4.1 mmol/L (3.5-5.1); Sodium 138 mmol/L (136-145); Total Bilirubin 0.6 mg/dL (0.15-1.2); Total Protein 6.7 g/dL (6.6-8.7)
[2023-08-04 07:35] VITALS: PULSE 75; RESP 16; O2SAT 95
[2023-08-04] MEDS: nicotine 21 mg Patch 1 PATCH TRANSDERMA (08:23)
[2023-08-04] MEDS: tamsulosin 0.4 mg Capsule PO (08:24)
[2023-08-04] MEDS: aspirin 81 mg EC Tablet PO (08:24)
[2023-08-04] MEDS: amlodipine 5 mg Tablet PO (08:24)
[2023-08-04] MEDS: levothyroxine 100 mcg Tablet PO (08:24)
[2023-08-04] MEDS: neomycin-poly-dex Op oint 3.5 gm 1 APPLIC EYE-LEFT (08:26)
--- NOTE | 2023-08-04 09:37 | PM.DCS ---
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 He had had some possible dementia like symptoms over the past few weeks however it appears hallucinations and increased restlessness were new since his surgery. CT head was obtained including view of the orbits which showed moderate cerebral and cerebellar atrophy and stable small vessel ischemic disease. There was no evidence of any intracranial hemorrhage or edema. He was diagnosed with acute encephalopathy and delirium likely precipitated by recent surgery and stressors. Medication changes were made. He was started on Zyprexa 5 mg initially intramuscularly and then converted to p.o. which he is tolerating well. Trazodone was held. TSH returned normal. Infectious work-up was pursued however overall there were no localizing signs or symptoms of infection. CT chest was without consolidation, UA did not show any signs of UTI. A second UA was repeated during the admission course when he developed HARJINDER transiently with creatinine bumping to 1.9. Again UA not suggestive of a UTI but did show presence of some calcium oxalate crystals, patient may have underlying nephrolithiasis, however given quick improvement of creatinine with hydration unlikely that he has obstructive uropathy currently. Creatinine returned back to baseline with IV hydration with normal saline. It may have been precipitated by a combination of dehydration and being on ZACK inhibitors. Patient had poor p.o. intake on the initial days when he was confused and disoriented, thereafter he has been on a dysphagia 5 diet which he has been tolerating. He was ordered for a modified barium swallow on 08/03/2023 which remains pending however may be completed as outpatient. Patient is currently back to his baseline mentation. He is alert awake oriented x 3. He was evaluated by physical therapy needed moderate to maximum assist. Exhibited decreased endurance, decreased strength, incoordination and poor balance with poor safety awareness. Patient would likely benefit from continued skilled therapy to improve gait balance and mobility and is being transitioned to a SNF. Physical Exam Narrative: General: No acute distress, AO x3 HEENT: PERRLA, pupils bilaterally equal and reactive, pallors not present Chest: Normal vesicular breath sounds, no added sounds, equal good air entry bilaterally CVS: S1-S2 regular, no murmurs, no tachycardia, no gallops, no rubs Abdomen: Soft, nontender, no organomegaly, bowel sounds present Neuro: No focal deficits, no facial deformity, AO x3, power 5/5 in all limbs Discharge Data Studies Completed and Pending Completed Studies During Hospitalization Category Date Time Status CT chest wo con [id number] Stat Cat Scan 07/27/23 16:[address] head wo con* [id number] Stat Cat Scan 07/27/23 14:46 Completed XR chest 1V portable [id number] Stat Exams 07/27/23 14:46 Completed Pending at discharge Category Date Time Status MBS [FL barium swallow modifd 27320] Routine Exams 08/03/23 12:30 Ordered Urine Culture Routine Lab 08/02/23 19:26 Received Radiology Impressions Chest CT 07/27/23 16:49 IMPRESSION: 1. Calcified pleural plaques are demonstrated at the bilaterally. 2. Changes of centrilobular emphysema demonstrated. 3. Mild ground-glass attenuation demonstrated bilaterally, suggesting small airways disease such as bronchiolitis. No consolidative pulmonary infiltrate noted. 4. Mild cardiomegaly is noted. 5. Calcified mediastinal lymph nodes, consistent with old granulomatous disease. Laboratory Results WBC 4.05 10^3/uL (3.29-11.43) 08/04/23 05:45 RBC 3.97 10^6/uL (3.85-5.65) 08/04/23 05:45 Hgb 11.80 g/dL (11.27-16.99) 08/04/23 05:45 Hct 35.0 % (37-53) L 08/04/23 05:45 MCV 88.2 fl (82-101) 08/04/23 05:45 MCH 29.7 pg (27-33) 08/04/23 05:45 MCHC 33.7 g/dL (30-55) 08/04/23 05:45 RDW 12.9 % (12.1-15.1) 08/04/23 05:45 Plt Count 174 10^3/cmm (157-399) 08/04/23 05:45 MPV 9.9 fL (7.4-10.4) 08/04/23 05:45 Neut % (Auto) 42.9 % 08/04/23 05:45 Lymph % (Auto) 31.9 % 08/04/23 05:45 [place] % (Auto) 21.0 % 08/04/23 05:45 Eos % (Auto) 2.5 % 08/04/23 05:45 Baso % (Auto) 0.2 % 08/04/23 05:45 Neut # (Auto) 1.74 10^3/uL (1.8-7.7) L 08/04/23 05:45 Lymph # (Auto) 1.3 10^3/uL (0.8-4.8) 08/04/23 05:45 [place] # (Auto) 0.9 10^3/uL (0.2-0.9) 08/04/23 05:45 Eos # (Auto) 0.1 10^3/uL (0.0-0.8) 08/04/23 05:45 Baso # (Auto) 0.0 10^3/uL (0.0-0.1) 08/04/23 05:45 Nucleated RBC % (auto) 0 % 08/04/23 05:45 Nucleated RBCs # 0.0 /100WBC 08/04/23 05:45 Sodium 138 mmol/L (136-145) 08/04/23 05:45 Potassium 4.1 mmol/L (3.5-5.1) 08/04/23 05:45 Chloride 106 mmol/L (98-107) 08/04/23 05:45 Carbon Dioxide 22 mmol/L (22-29) 08/04/23 05:45 Anion Gap 14.1 (5-19) 08/04/23 05:45 BUN 18 mg/dL (8-23) 08/04/23 05:45 Creatinine 0.7 mg/dL (0.7-1.2) 08/04/23 05:45 GFR Calculation Not Reportable 08/04/23 05:45 Glucose 86 mg/dL (65-115) 08/04/23 05:45 Calculated Osmolality 287 mOsm/kg (285-295) 08/04/23 05:45 Lactic Acid 0.9 mmol/L (0.5-2.2) 07/28/23 22:36 Calcium 8.8 mg/dL (8.5-10.5) 08/04/23 05:45 Magnesium 2.2 mg/dL (1.7-2.3) 08/01/23 04:20 Total Bilirubin 0.6 mg/dL (0.15-1.2) 08/04/23 05:45 AST 20 U/L (0-40) 08/04/23 05:45 ALT 12 U/L (0-41) 08/04/23 05:45 Alkaline Phosphatase 84 U/L (40-130) 08/04/23 05:45 Creatine Kinase 178 U/L (39-308) 08/03/23 08:50 NT-Pro-B Natriuret Pep 284 pg/mL (0-450) 08/03/23 08:50 Total Protein 6.7 g/dL (6.6-8.7) 08/04/23 05:45 Albumin 3.5 g/dL (3.5-5.2) 08/04/23 05:45 Globulin 3.2 g/dL (1.3-4.6) 08/04/23 05:45 Vitamin B12 395 pg/mL (232-1245) 07/29/23 04:33 Folate > 20.0 ng/mL (4.5-32.2) 07/29/23 04:33 Procalcitonin 0.05 ng/mL (0-0.5) 07/30/23 04:20 TSH 1.94 uIU/mL (0.27-4.20) 07/27/23 15:17 Urine Color Yellow (Yellow) 08/02/23 19:26 Urine Appearance Clear (CLEAR) 08/02/23 19:26 Urine pH 5 (5-7) 08/02/23 19:26 Ur Specific [place] 1.025 (1.005-1.030) 08/02/23 19:26 Urine Protein 1+ (Negative) H 08/02/23 19:26 Urine Glucose (UA) Norm (Normal) 08/02/23 19:26 Urine Ketones 1+ (Negative) H 08/02/23 19:26 Urine Blood 2+ (Negative) H 08/02/23 19:26 Urine Nitrate Negative (Negative) 08/02/23 19:26 Urine Bilirubin 1+ (Negative) H 08/02/23 19:26 Urine Urobilinogen 1 mg/dL (Negative) H 08/02/23 19:26 Ur Leukocyte Esterase Negative (Negative) 08/02/23 19:26 Urine RBC 0-4 /hpf (0-2) H 08/02/23 19:26 Urine WBC 0-4 /hpf (0-5) H 08/02/23 19:26 Ur Squamous Epith Cells 0-4 /hpf (0-5) H 08/02/23 19:26 Calcium Oxalate Crystal 25-40 /hpf H 08/02/23 19:26 Amorphous Sediment Not Reportable 08/02/23 19:26 Urine Bacteria 2+ /hpf (NONE) H 08/02/23 19:26 Hyaline Casts Rare /lpf 07/27/23 15:08 Urine Mucus None /hpf 08/02/23 19:26 Coronavirus 229E (PCR) Not detected (NOT DETECT) 07/28/23 17:00 SARS-CoV-2 (PCR) Not detected (NOT DETECT) 07/28/23 17:00 SARS-CoV-2 Ag (Rapid) negative (Negative) 08/03/23 11:50 Vitals Last Vital Signs Temp 98.1 F 08/04/23 03:30 Pulse 75 08/04/23 07:35 Resp 16 08/04/23 07:35 BP 145/74 08/04/23 03:30 Pulse Ox 95 08/04/23 07:35 O2 Del Method Room Air 08/04/23 07:35 O2 Flow Rate 2 07/29/23 04:15 Discharge Plan Discharge Patient Disposition: Home Condition: Stable Prescriptions: New amlodipine 5 mg Tablet 10 mg PO DAILY 30 Days Qty: 30 0RF olanzapine 5 mg Tablet,Disintegrating 5 mg PO BEDTIME 30 Days Qty: 30 0RF Continued tamsulosin 0.4 mg capsule 0.4 mg PO BID acetaminophen 325 mg Tablet 650 mg PO Q6H PRN (Reason: Mild/Mod Pain Or Temp >/= 101) Qty: 30 0RF multivitamin Tablet 1 tab PO DAILY levothyroxine 100 mcg tablet 100 mcg PO DAILY albuterol sulfate 90 mcg/actuation HFA aerosol inhaler 1 inh inhalation Q8H PRN (Reason: shortness of breath or wheezing) Qty: 8.5 2RF Aspir-81 81 mg Tablet,Delayed Release (Dr/Ec) 81 mg PO DAILY neomycin-polymyxin B-dexameth 3.5 mg/g-10,000 unit/g-0.1 % ointment 1 applic ophthalmic (eye) TID Rx Instructions: left lower lid Held lisinopril 10 mg tablet 10 mg PO DAILY Qty: 60 1RF Hold Instructions: Resume on 08/18/23. Discontinued trazodone 50 mg tablet 50 - 150 mg PO BEDTIME PRN (Reason: Insomnia) Discharge Orders: Discharge Order (Routine); Ordered 08/04/23 Ordered By: Margaux Reyes Referrals: Jaymie Urbano [Primary Care Provider] - Discharge Diet: Usual diet and As Directed Discharge Activity: Increase activity as tolerated and As per PT/OT instructions Patient Instructions: Opioid Safety Discharge Attestations Time Spent in Discharge Care*: greater than 30 min Quality Metrics Clinical Quality Measures [ No reported AMI, CVA or VTE this stay] Coding Level of Care Code Acute Code for Chg Fwd Diagnoses Altered mental status R41.82 Accelerated hypertension I10 Hallucinations R44.3
[2023-08-04] MEDS: acetaminophen 325 mg Tablet 650 MG PO (10:14)
[2023-08-04 12:00] VITALS: BP 92/55; PULSE 94; RESP 16; TEMP 36.9; O2SAT 95
--- NOTE | 2023-08-04 12:30 | FL_ITS ---
WS: [id number] EXAMINATION: FL barium swallow modifd 13717 REASON FOR EXAM: Oropharyngeal dysphagia ORDER DATE: 08/04/2023 11:53 AM FLUOROSCOPY TIME: 2min [id number] # OF SPOT FILMS: 0 TECHNIQUE: The oral cavity and upper pharyngeal and laryngeal region were observed in the lateral pro jection with fluoroscopy during swallowing. Different consistencies of liquid and food were mixed with barium and administered by the speech path ologist during fluoroscopy. FINDINGS: The oral stage was delayed including initiation of the swallowing reflex. Movement of cont rast coated material through the pharynx into the upper esophagus was observed. There were several ep isodes of penetration and/or aspiration. Please refer to speech pathologist report for specific detai ls regarding swallowing function. There was no significant residual. IMPRESSION: PLEASE REFER TO THE SPEECH PATHOLOGIST REPORT FOR ADDITIONAL DETAILS REGARDING THIS MODIFIED BARIUM S WALLOW STUDY.
--- NOTE | 2023-08-04 13:50 | PC.NURSE ---
Report called in to Yari at [facility] in [place].
[2023-08-04 14:44] VITALS: BP 92/55; PULSE 94; RESP 16; TEMP 36.9; O2SAT 95
== END 2023-08-04 14:59 | disposition skilled nursing facility (03) ==
LOC: ER 16:38 → MEDSURG 17:45 → ICU 07-28 13:29 → MEDSURG 07-30 12:10
PROVIDERS: Family Medicine; Admitting Provider Internal Medicine; Emergency Provider Emergency Medicine; PCP Nurse Practitioner Family; Visit Provider Student in an Organized Health Care Education/Training Program
DX: R41.82 Altered mental status, unspecified (principal); I10 Essential (primary) hypertension; R44.3 Hallucinations, unspecified; E03.9 Hypothyroidism, unspecified; N40.0 Benign prostatic hyperplasia without lower urinary tract symptoms; I51.7 Cardiomegaly; N17.9 Acute kidney failure, unspecified; F17.220 Nicotine dependence, chewing tobacco, uncomplicated; Z91.81 History of falling; E87.6 Hypokalemia; R22.0 Localized swelling, mass and lump, head; Z79.82 Long term (current) use of aspirin
CPT/HCPCS: 36415; 51798; 70450; 71045; 71250; 74230; 80048; 80053; 81001; 82550; 82607; 82746; 83605; 83735; 83880; 84145; 84443; 85025; 87077; 87086; 87186; 87426; 87635; 92523; 92610; 92611; 93005; 96365; 96366; 96372; 96375; 97110; 97112; 97116; 97161; 97166; 97530; 97535; 99285; G0378; J0360; J1630; J1650; J2060; J2543; J3490; J7030; J7040

== ENCOUNTER 2023-08-20 19:12 | Inpatient (IN) | payer MEDICARE, SELFPAY ==
[2023-08-20] VITALS (14 sets, daily range): BP systolic 97–138; BP diastolic 48–59; PULSE 75–120; RESP 14–29; TEMP 37.2–39.4; O2SAT 92–96; BMI 22.5
--- NOTE | 2023-08-20 19:22 | ECG_ITS ---
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 Measurements Intervals [place] Rate: 102 P: 78 [place]: 157 QRS: -17 QRSD: 115 T: 49 QT: 343 QTc: 447 Interpretive Statements ELECTRONIC VENTRICULAR PACEMAKER ABNORMAL RHYTHM ECG Compared to ECG 08/20/2023 19:29:00 No significant changes Electronically Signed On 08-21-2023 6:02:48 CDT by Koki Peterson M.D. [email or web address] medical center [id number]
--- NOTE | 2023-08-20 19:22 | XRR_ITS ---
PROCEDURE INFORMATION: Exam: XR Chest Exam date and time: 08/20/2023 7:57 PM Age: 88 years old Clinical indication: Patient HX: Fever; AMS; Ex smoker TECHNIQUE: Imaging protocol: Radiologic exam of the chest. Views: 1 view. COMPARISON: CT chest con [id number] 07/27/2023 5:16 PM FINDINGS: Lungs: Emphysema. Mild atelectasis or scar in the left lung base. The lungs are otherwise clear. Pleural spaces: Stable mild blunting of the left costophrenic angle is consistent with subpleural fatty deposition when correlated to the CT. No pleural effusion or pneumothorax. Heart/Mediastinum: Unremarkable. No cardiomegaly. Bones/joints: Thoracic curvature. No fracture identified. XR/XR chest 1V [id number] IMPRESSION: No acute findings.
--- NOTE | 2023-08-20 19:29 | ECG_ITS ---
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 Measurements Intervals [place] Rate: 96 P: 65 [place]: 156 QRS: -45 QRSD: 116 T: 45 QT: 349 QTc: 441 Interpretive Statements SINUS RHYTHM POSSIBLE RIGHT VENTRICULAR CONDUCTION DELAY [RSR (QR) IN V1/V2] Borderline left axis deviation Compared to ECG 07/27/2023 14:53:11 No change Electronically Signed On 08-21-2023 6:04:16 CDT by Koki Peterson M.D. [email or web address] center northBubbleGabpremier health miami [facility] hospital south.[email or web address] [email or web address]/store/[id number]
--- NOTE | 2023-08-20 19:35 | W.ED.FEVER ---
HPI - Fever General: Chief Complaint: Fever Stated Complaint: FEVER Time Seen by Provider: 08/20/23 19:17 Source: EMS and RN notes reviewed Mode of arrival: EMS Limitations: altered mental status History of Present Illness: Patient presents to the emergency department today brought by EMS from a prison facility for decreased urinary output and fever-both of unknown length of time. Patient was placed in a prison facility on 08/04 after an inpatient stay here for encephalopathy, altered mental status, and HARJINDER. Patient was discharged from the hospital to prison where he has been since. They indicate the patient has not had hardly any intake today and he was found to be febrile this evening. Decreased urinary output is also suspected to be low though they are unsure of when the decreased urinary output and fever actually began. Patient has some underlying dementia anyways and EMS indicated he was unable to provide history though he did accurately provide his name and birthdate. [facility] facility indicated no vomiting or diarrhea recently. EMS provided a liter of fluids in route. Review of Systems General: Reports: 10 or more systems reviewed and unremarkable except in HPI and below PFSH ED PFSH: Medical History COVID-19 vaccine dose not administered History of skin cancer Hypothyroidism Prostatic hypertrophy Surgical History History of cataract surgery History of skin surgery on penis for skin cancer Family History Denies family history of CAD (coronary artery disease) Social History Smoking and tobacco/nicotine status: current every day tobacco/nicotine user smokeless tobacco Smokeless tobacco user: chewing tobacco Smokeless tobacco details: daily Alcohol intake: current Alcohol intake frequency: holidays/special occasions only Alcohol type: beer Substance/Drug Use: never Household members: spouse Marital status: Physical Exam Const: ORIENTATION/CONSCIOUSNESS: not oriented to person, not oriented to place and not oriented to time OTHER: Patient is minimally responsive in the room. He does push away and roll away from physical examination, application of EKG leads, pulse oximeter placement, blood pressure cuff placement, ATC Eye: COMMON NORMALS: Equal, round and reactive pupils present, EOMs intact bilaterally and conjunctivae normal CONJUNCTIVA: Yes conjunctivae normal PUPIL: Yes Equal, round and reactive pupils present Neck/C-Spine: COMMON NORMALS: full ROM Resp: OTHER: Diminished lung sounds throughout however, patient shows no signs of increased effort of respiration or respiratory distress. No accessory muscle use. Cardio: OTHER: Mild tachycardia GI: OTHER: Diminished bowel sounds throughout. Abdomen is soft, nontender. No palpable bulge above the pubic bone. : OTHER: No signs of obvious swelling or discharge/rash in the groins, scrotum, or penis. Scrotum is slightly red. Extremity: NARRATIVE EXTREMITY EXAM: Patient does move extremities independently but, does not seem to coordinate enough to perform mobility in the bed independently. Neuro: COMMON NORMALS: moves all extremities SENSORIUM/ORIENTATION: No oriented to person, No oriented to place, No oriented to time and Yes Orientation impaired SPEECH: abnormal speech (Unable to communicate) Details: garbled Course Vital Signs: Vital signs: Vital Signs Temperature 99.0 F 08/20/23 23:59 Pulse Rate 92 08/20/23 23:31 Respiratory Rate 14 08/20/23 23:31 Blood Pressure 99/53 08/20/23 23:31 Pulse Oximetry 95 08/20/23 23:31 Oxygen Delivery Me thod Nasal Cannula 08/20/23 19:23 Oxygen Flow Rate 1 08/20/23 19:23 MDM - Fever Medical Decision Making Patient presents to the emergency department today for concerns of fever and decreased urinary output. Patient does seem to be unable to communicate at this time. He presented febrile at 102.9 and patient was treated with fluids and Tylenol. Repeat of fever showed resolution of temperature with antipyretics. Urinalysis shows 4+ bacteria, 2+ leukocyte esterase and 15-25 white blood cells. White blood cell count is 5.9 with a relatively stable hemoglobin. Electrolytes within normal limits and creatinine was 1.0. Procalcitonin and lactic are within normal limits. X-ray was generally unremarkable but, respiratory panel did test positive for COVID. I discussed the case with Dr. Sterling who encouraged reaching out to hospitalist services for admission. Spoke with Dr. Ingram and after discussion, recommended reaching out to the nursing facility to see if they could provide fluids and antibiotics for this patient. Unfortunately, the nursing facility is unable to obtain IV medications and fluids through the weekend as they do not have access to pharmacy. Dr. Ingram evaluated the patient at bedside and patient will be admitted to the MedSur unit for treatment of COVID-positive status and urinary tract infection. Differential Diagnosis Unlikely calculus of kidney, constipation, diverticulitis, gastroenteritis, pancreatitis or small bowel obstruction Lab Data 08/20/23 19:50 08/20/23 19:50 Radiology Impressions Chest X-Ray 08/20/23 19:22 IMPRESSION: No acute findings. Laboratory Results WBC 5.98 10^3/uL (3.29-11.43) 08/20/23 19:50 RBC 3.58 10^6/uL (3.85-5.65) L 08/20/23 19:50 Hgb 10.50 g/dL (11.27-16.99) L 08/20/23 19:50 Hct 32.3 % (37-53) L 08/20/23 19:50 MCV 90.2 fl (82-101) 08/20/23 19:50 MCH 29.3 pg (27-33) 08/20/23 19:50 MCHC 32.5 g/dL (30-55) 08/20/23 19:50 RDW 13.0 % (12.1-15.1) 08/20/23 19:50 Plt Count 217 10^3/cmm (157-399) 08/20/23 19:50 MPV 10.1 fL (7.4-10.4) 08/20/23 19:50 Neut % (Auto) 73.0 % 08/20/23 19:50 Lymph % (Auto) 8.9 % 08/20/23 19:50 [place] % (Auto) 15.9 % 08/20/23 19:50 Eos % (Auto) 0.0 % 08/20/23 19:50 Baso % (Auto) 0.2 % 08/20/23 19:50 Neut # (Auto) 4.37 10^3/uL (1.8-7.7) 08/20/23 19:50 Lymph # (Auto) 0.5 10^3/uL (0.8-4.8) L 08/20/23 19:50 [place] # (Auto) 1.0 10^3/uL (0.2-0.9) H 08/20/23 19:50 Eos # (Auto) 0.0 10^3/uL (0.0-0.8) 08/20/23 19:50 Baso # (Auto) 0.0 10^3/uL (0.0-0.1) 08/20/23 19:50 Nucleated RBC % (auto) 0 % 08/20/23 19:50 Nucleated RBCs # 0.0 /100WBC 08/20/23 19:50 ESR 35 mm/hr (0-10) H 08/20/23 19:50 Sodium 136 mmol/L (136-145) 08/20/23 19:50 Potassium 4.5 mmol/L (3.5-5.1) 08/20/23 19:50 Chloride 104 mmol/L (98-107) 08/20/23 19:50 Carbon Dioxide 21 mmol/L (22-29) L 08/20/23 19:50 Anion Gap 15.5 (5-19) 08/20/23 19:50 BUN 23 mg/dL (8-23) 08/20/23 19:50 Creatinine 1.0 mg/dL (0.7-1.2) 08/20/23 19:50 GFR Calculation Not Reportable 08/20/23 19:50 Glucose 101 mg/dL (65-115) 08/20/23 19:50 Calculated Osmolality 286 mOsm/kg (285-295) 08/20/23 19:50 Lactic Acid 0.9 mmol/L (0.5-2.2) 08/20/23 19:50 Calcium 8.5 mg/dL (8.5-10.5) 08/20/23 19:50 Total Bilirubin 0.7 mg/dL (0.15-1.2) 08/20/23 19:50 AST 32 U/L (0-40) 08/20/23 19:50 ALT 16 U/L (0-41) 08/20/23 19:50 Alkaline Phosphatase 78 U/L (40-130) 08/20/23 19:50 C-Reactive Protein 65.1 mg/L (0.0-4.9) H 08/20/23 19:50 Total Protein 7.1 g/dL (6.6-8.7) 08/20/23 19:50 Albumin 3.3 g/dL (3.5-5.2) L 08/20/23 19:50 Globulin 3.8 g/dL (1.3-4.6) 08/20/23 19:50 Procalcitonin 0.14 ng/mL (0-0.5) 08/20/23 19:50 Urine Color Yellow (Yellow) 08/20/23 20:31 Urine Appearance Hazy (CLEAR) A 08/20/23 20: Urine pH 7 (5-7) 08/20/23 20: Ur Specific [place] 1.010 (1.005-1.030) 08/20/23 20: Urine Protein 1+ (Negative) H 08/20/23 20: Urine Glucose (UA) Norm (Normal) 08/20/23 20: Urine Ketones 1+ (Negative) H 08/20/23 20: Urine Blood 3+ (Negative) H 08/20/23 20: Urine Nitrate Negative (Negative) 08/20/23 20: Urine Bilirubin Neg (Negative) 08/20/23 20: Urine Urobilinogen 1 mg/dL (Negative) H 08/20/23 20:31 Ur Leukocyte Esterase 2+ (Negative) H 08/20/23 20: Urine RBC 0-4 /hpf (0-2) H 08/20/23 20:31 Urine WBC 15-25 /hpf (0-5) H 08/20/23 20:31 Ur Squamous Epith Cells 0-4 /hpf (0-5) H 08/20/23 20:31 Amorphous Sediment Not Reportable 08/20/23 20: Urine Bacteria 4+ /hpf (NONE) H 08/20/23 20:31 Nasal Influ A H1 2009 PCR Not detected (NOT DETECT) 08/20/23 19:49 Adenovirus (PCR) Not detected (NOT DETECT) 08/20/23 19:49 C. pneumoniae DNA (PCR) Not detected (NOT DETECT) 08/20/23 19:49 Coronavirus 229E (PCR) Not detected (NOT DETECT) 08/20/23 19:49 Human Metapneumovir PCR Not detected (NOT DETECT) 08/20/23 19:49 Influenza A (H1) PCR Not detected (NOT DETECT) 08/20/23 19:49 Influenza A (H3) PCR Not detected (NOT DETECT) 08/20/23 19:49 Influenza Type A (PCR) Not detected (NOT DETECT) 08/20/23 19:49 Influenza Type B (PCR) Not detected (NOT DETECT) 08/20/23 19:49 M. pneumoniae (PCR) Not detected (NOT DETECT) 08/20/23 19:49 Parainfluenza 1 (PCR) Not detected (NOT DETECT) 08/20/23 19:49 Parainfluenza 2 (PCR) Not detected (NOT DETECT) 08/20/23 19:49 Parainfluenza 3 (PCR) Not detected (NOT DETECT) 08/20/23 19:49 Parainfluenza 4 (PCR) Not detected (NOT DETECT) 08/20/23 19:49 RSV Type A (PCR) Not detected (NOT DETECT) 08/20/23 19:49 RSV Type B (PCR) Not detected (NOT DETECT) 08/20/23 19:49 Entero/Rhino (PCR) Not detected (NOT DETECT) 08/20/23 19:49 SARS-CoV-2 (PCR) Detected (NOT DETECT) A 08/20/23 19:49 All radiology interpretation(s) finalized by discharge Discharge Plan Discharge Patient Disposition: Admitted As Inpatient Clinical Impression: COVID-19, Acute UTI Condition: Stable Coding Level of Care Code 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
[2023-08-20] MEDS: sodium chloride 0.9% 1,000 ML 150 ML IV (19:56)
[2023-08-20 20:01] LABS: Basophils % 0.2 %; Hematocrit 32.3 % (37-53); Lymphocytes # 0.5 10^3/uL (0.8-4.8); Lymphocytes % 8.9 %; Mean Corpuscular HGB Conc 32.5 g/dL (30-55); Mean Corpuscular Hemoglobin 29.3 pg (27-33); Mean Corpuscular Volume 90.2 fl (82-101); Mean Platelet Volume 10.1 fL (7.4-10.4); Monocytes % 15.9 %; Neutrophils # 4.37 10^3/uL (1.8-7.7); Nucleated Red Blood Cells % 0 %; Platelet Count 217 10^3/cmm (157-399); Red Blood Count 3.58 10^6/uL (3.85-5.65); White Blood Count 5.98 10^3/uL (3.29-11.43)
[2023-08-20 20:04] LABS: Erythrocyte Sedimentation Rate 35 mm/hr (0-10)
[2023-08-20 20:22] LABS: Alanine Aminotransferase 16 U/L (0-41); Albumin Level 3.3 g/dL (3.5-5.2); Alkaline Phosphatase 78 U/L (40-130); Anion Gap 15.5 (5-19); Aspartate Amino Transferase 32 U/L (0-40); Blood Urea Nitrogen 23 mg/dL (8-23); C Reactive Protein 65.1 mg/L (0.0-4.9); Calcium 8.5 mg/dL (8.5-10.5); Carbon Dioxide 21 mmol/L (22-29); Chloride 104 mmol/L (98-107); Globulin 3.8 g/dL (1.3-4.6); Glucose 101 mg/dL (65-115); Osmolality Calculated 286 mOsm/kg (285-295); Potassium 4.5 mmol/L (3.5-5.1); Sodium 136 mmol/L (136-145); Total Bilirubin 0.7 mg/dL (0.15-1.2); Total Protein 7.1 g/dL (6.6-8.7)
[2023-08-20 20:23] LABS: Lactic Sepsis W/Reflex 0.9 mmol/L (0.5-2.2)
[2023-08-20 20:28] LABS: Procalcitonin 0.14 ng/mL (0-0.5)
[2023-08-20] MEDS: acetaminophen 1,000 MG/100 ML PIGGYBACK 400 MG IV (20:33)
[2023-08-20 21:16] LABS: Urine Appearance Hazy (CLEAR); Urine Color Yellow (Yellow)
[2023-08-20 21:17] LABS: Add Urine Culture? Yes; Add Urine Microscopic? YES; Bacteria Urine 4+ /hpf; Bilirubin Urine Neg (Negative); Blood Urine 3+ (Negative); Glucose Urine UA Norm (Normal); Ketones Urine 1+ (Negative); Leukocyte Esterase Urine 2+ (Negative); Nitrate Urine Negative (Negative); Protein Urine 1+ (Negative); RBC Urine 0-4 /hpf (0-2); Squamous Epithelial Cell Urine 0-4 /hpf (0-5); Urobilinogen Urine 1 mg/dL (Negative); WBC Urine 15-25 /hpf (0-5); pH Urine 7 (5-7)
[2023-08-20 21:51] LABS: Adenovirus Not Detected (NOT DETECT); Chlamydia Pneumoniae Not Detected (NOT DETECT); Coronavirus 229E,HKU1,NL63,OC4 Not Detected (NOT DETECT); Human Metapneumovirus Not Detected (NOT DETECT); Human Rhinovirus/Enterovirus Not Detected (NOT DETECT); Influenza A Not Detected (NOT DETECT); Influenza A H1 Not Detected (NOT DETECT); Influenza A H1-2009 Not Detected (NOT DETECT); Influenza A H3 Not Detected (NOT DETECT); Influenza B Not Detected (NOT DETECT); Mycoplasma Pneumoniae Not Detected (NOT DETECT); Parainfluenza Virus Type 1 Not Detected (NOT DETECT); Parainfluenza Virus Type 2 Not Detected (NOT DETECT); Parainfluenza Virus Type 3 Not Detected (NOT DETECT); Parainfluenza Virus Type 4 Not Detected (NOT DETECT); Respiratory Syncytial Virus A Not Detected (NOT DETECT); Respiratory Syncytial Virus B Not Detected (NOT DETECT)
[2023-08-20 21:52] LABS: SARS-COV-2 Detected (NOT DETECT)
[2023-08-20] MEDS: ciprofloxacin 400 MG/200 ML PREMIX 200 MG IV (22:29)
--- NOTE | 2023-08-20 23:26 | PC.NURSE ---
stefanie ahumada update katarina from [facility] called for update. family ok'd update at this time.
[2023-08-21] VITALS (12 sets, daily range): BP systolic 105–158; BP diastolic 53–75; PULSE 76–96; RESP 16–22; TEMP 36.4–37.6; O2SAT 93–96
--- NOTE | 2023-08-21 01:20 | P.HP_ITS ---
Providers/Chief Complaint Admitting Physician: Bridget Ingram MD Primary Care Provider: Jaymie Urbano Chief Complaint: FEVER History of Present Illness Pawel Baker is a 88 year old male with history of hypertension BPH anxiety dementia hypothyroidism was sent in from senior care for fever decreased urine output and confusion. As per the senior care records he has not eaten or drank water since this morning. There is no history of cold cough shortness of breath chest pain nausea vomiting diarrhea. In ER he was found to have altered mental status, no further information available. There is no data available regarding baseline mental status Review of Systems Narrative: Unable to assess due to altered mental status Medications/Allergies Home Medications Medication Instructions Recorded Confirmed Last Taken Type acetaminophen 325 mg tablet 650 mg PO Q6H PRN Mild/Mod Pain Or 06/19/21 07/27/23 Unknown Rx Temp >/= 101 #30 tabs tamsulosin 0.4 mg capsule 0.4 mg PO BID 06/19/21 07/27/23 07/27/23 History levothyroxine 100 mcg tablet 100 mcg PO DAILY 04/25/22 07/27/23 07/27/23 History multivitamin 1 tab PO DAILY 04/25/22 07/27/23 04/24/22 History albuterol sulfate 90 mcg/actuation 1 inh inhalation Q8H PRN shortness 04/27/22 07/27/23 Unknown Rx aerosol inhaler of breath or wheezing #8.5 grams lisinopril 10 mg tablet 10 mg PO DAILY #60 tabs 04/27/22 07/27/23 07/27/23 Rx aspirin 81 mg tablet,delayed 81 mg PO DAILY 07/27/23 07/27/23 07/27/23 History release neomycin 3.5 mg/g-polymyxin B 1 applic ophthalmic (eye) TID 07/27/23 07/27/23 07/27/23 History 10,000 unit/g-dexameth 0.1 % eye oint amlodipine 5 mg tablet 10 mg PO DAILY 30 days #30 tabs 08/04/23 Unknown Rx olanzapine 5 mg disintegrating 5 mg PO BEDTIME 30 days #30 tabs 08/04/23 Unknown Rx tablet Allergies Allergy/AdvReac Type Severity Reaction Status Date / Time No Known Allergies Allergy Verified 07/27/23 15:46 PFSH Acute PFSH: Medical History COVID-19 vaccine dose not administered History of skin cancer Hypothyroidism Prostatic hypertrophy Surgical History History of cataract surgery History of skin surgery on penis for skin cancer Family History Denies family history of CAD (coronary artery disease) Social History Smoking and tobacco/nicotine status: current every day tobacco/nicotine user smokeless tobacco Smokeless tobacco user: chewing tobacco Smokeless tobacco details: daily Alcohol intake: current Alcohol intake frequency: holidays/special occasions only Alcohol type: beer Substance/Drug Use: never Household members: spouse Marital status: Vitals/I&O/Wt Last Vital Signs Temp 99.0 F 08/20/23 23:59 Pulse 76 08/21/23 00:30 Resp 22 H 08/21/23 00:02 BP 115/55 08/21/23 00:30 Pulse Ox 96 08/21/23 00:30 O2 Del Method Nasal Cannula 08/20/23 19:23 O2 Flow Rate 1 08/20/23 19:23 08/20/23 08/20/23 08/21/23 14:59 22:59 06:59 Intake Total 100 / 100 200 / 300 Balance 100 / 100 200 / 300 Weight last 48 hrs Weight 81.647 kg Physical Exam Narrative: He is awake confused nonresponsive non comprehensive Chest clear to auscultation bilaterally Vascular normal heart sounds no murmurs Abdomen soft nontender nondistended normal bowel sounds Extremities no edema noted bilateral lower extremity Data 08/20/23 19:50 08/20/23 19:50 Micro: Microbiology 08/20/23 19:50 Blood Culture - Preliminary Blood SPECIMEN COLLECTED 08/20/23 19:50 Blood Culture - Preliminary Blood SPECIMEN COLLECTED Echo: Radiologist's impression: 04/21 CONCLUSIONS ?LV systolic function is mildly reduced with EF of 40-45% ?Trace mitral regurgitation ?Aortic valve is thickened and calcified. No signficant stenosis.? ?There is mild aortic regurgitation.? ?Mild tricuspid regurgitation. Mild pulmonary hypertension ?No comparison studies are available CXR: Radiologist's impression: No acute findings EKG 1: EKG computer-generated impression: Paced rhythm No acute ST-T changes A&P Assessment and plan (1) Altered mental status: (2) COVID-19: (3) UTI (urinary tract infection): Plan 88 year old male with history of hypertension BPH anxiety dementia hypothyroidism was sent in from senior care for fever decreased urine output and confusion and found to have positive UA and COVID-19 swab test. Will give IV fluids normal saline at 100 mL/h IV ceftriaxone 1 g daily In absence of cold cough positive chest x-ray findings, will hold off on further management for COVID-19 infection. Continue airborne and isolation precautions. We tried to discharge the patient to senior care to continue getting IV fluids and antibiotics, but due to unavailability of antibiotics in the senior care over the weekend, patient to stay in the hospital for less than 2 days for the treatment plan. Cardiac diet IV Pepcid 20 mg twice a day for stress ulcer prophylaxis Subcutaneous Lovenox 30 mg daily for DVT prophylaxis He is DNR as per the senior care records Attestations Medical Necessity Statement*: He needs less than 2 days of hospitalization. He is here for management of fever UTI and COVID-19 infection and AMS. He needs IV fluids and antibiotics Time Spent in Patient Care: 25 minutes Coding Level of Care Code Acute Code for g Fwd Diagnoses Altered mental status R41.82 COVID-19 U07.1 UTI (urinary tract infection) N39.0 Time Spent (min) 25
[2023-08-21] MEDS: sodium chloride 0.9% 1,000 ML 150 ML IV (02:57)
[2023-08-21] MEDS: cefTRIAXone 1,000 MG in sodium chloride 0.9% (plus) 50 ML 100 MG IV (05:16)
[2023-08-21] MEDS: sodium chloride 0.9% 1,000 ML 100 ML IV ×2 (05:19→15:21)
[2023-08-21] MEDS: enoxaparin 40 mg/0.4 mL Syringe SUBCUT (05:21)
[2023-08-21] MEDS: famotidine 20 mg/2 mL INJ IVP ×2 (05:35→17:50)
--- NOTE | 2023-08-21 05:41 | PC.NURSE ---
Beatty insertion unsuccessful on med surg, Dr. Ingram updated by phone and she d/c beatty order.
[2023-08-21 06:17] LABS: Basophils % 0.2 %; Eosinophils % 0.4 %; Lymphocytes # 0.8 10^3/uL (0.8-4.8); Lymphocytes % 16.7 %; Mean Corpuscular HGB Conc 31.8 g/dL (30-55); Mean Corpuscular Hemoglobin 28.6 pg (27-33); Mean Corpuscular Volume 90.2 fl (82-101); Monocytes # 1.2 10^3/uL (0.2-0.9); Monocytes % 23.1 %; Neutrophils # 2.91 10^3/uL (1.8-7.7); Neutrophils % 57.8 %; Nucleated Red Blood Cells % 0 %; Platelet Count 203 10^3/cmm (157-399); Red Blood Count 3.77 10^6/uL (3.85-5.65); Red Cell Distribution Width 13.2 % (12.1-15.1); White Blood Count 5.03 10^3/uL (3.29-11.43)
[2023-08-21 06:36] LABS: Alanine Aminotransferase 31 U/L (0-41); Albumin Level 3.4 g/dL (3.5-5.2); Alkaline Phosphatase 77 U/L (40-130); Anion Gap 15.3 (5-19); Aspartate Amino Transferase 84 U/L (0-40); Blood Urea Nitrogen 21 mg/dL (8-23); Calcium 8.2 mg/dL (8.5-10.5); Carbon Dioxide 21 mmol/L (22-29); Chloride 106 mmol/L (98-107); Globulin 3.2 g/dL (1.3-4.6); Glucose 86 mg/dL (65-115); Osmolality Calculated 288 mOsm/kg (285-295); Phosphorus 2.2 mg/dL (2.5-4.5); Potassium 4.3 mmol/L (3.5-5.1); Sodium 138 mmol/L (136-145); Total Bilirubin 0.6 mg/dL (0.15-1.2); Total Protein 6.6 g/dL (6.6-8.7)
[2023-08-21] MEDS: tamsulosin 0.4 mg Capsule PO ×2 (08:54→17:50)
[2023-08-21] MEDS: aspirin 81 mg EC Tablet PO (08:54)
[2023-08-21] MEDS: levothyroxine 100 mcg Tablet PO (08:54)
[2023-08-21] MEDS: multivitamin therapeutic Tablet 1 TAB PO (08:54)
[2023-08-21] MEDS: lisinopril 10 mg Tablet PO (08:54)
[2023-08-21] MEDS: amlodipine 10 mg Tablet PO (08:54)
[2023-08-21 10:37] LABS: Iron 16 ug/dL (59-158); Percent Saturation 8.8 % (20-50); Total Iron Binding Capacity 180 mcg/dl; Unsaturated Iron Binding 164 ug/dL (112-347)
[2023-08-21] MEDS: dexamethasone 10 mg/mL INJ 6 MG IVP (11:19)
[2023-08-21] MEDS: vancomycin 1,000 MG in sodium chloride 0.9% 250 ML 250 MG IV (11:19)
--- NOTE | 2023-08-21 13:52 | W.PM.EVENTAC ---
Event Note Event Note: Admitted earlier today morning. Seen with family numbers at bedside. H&P labs appreciated. Examination patient lying comfortably in bed, opening eyes to verbal stimulus. After family member at baseline he takes pur?ed diet and is usually forgetful with AO x1-2. Patient's mentation seems to be improving as per family members as he is waking up now. Labs appreciated. Radiology Impressions Chest X-Ray 08/20/23 19:22 IMPRESSION: No acute findings. Laboratory Results WBC 5.03 10^3/uL (3.2 9-11.43) 08/21/23 05:26 RBC 3.77 10^6/uL (3.8 5-5.65) L 08/21/23 05:26 Hgb 10.80 g/dL (11.27 -16.99) L 08/21/23 05:26 Hct 34.0 % (37-53) L 08/21/23 05:26 MCV 90.2 fl (82-101) 08/21/23 05:26 MCH 28.6 pg (27-33) 08/21/23 05:26 MCHC 31.8 g/dL (30-55) 08/21/23 05:26 RDW 13.2 % (12.1-15.1 ) 08/21/23 05:26 Plt Count 203 10^3/cmm (157 -399) 08/21/23 05:26 MPV 10.0 fL (7.4-10.4 ) 08/21/23 05:26 Neut % (Auto) 57.8 % 08/21/23 05:26 Lymph % (Auto) 16.7 % 08/21/23 05:26 [place] % (Auto) 23.1 % 08/21/23 05:26 Eos % (Auto) 0.4 % 08/21/23 05:26 Baso % (Auto) 0.2 % 08/21/23 05:26 Neut # (Auto) 2.91 10^3/uL (1.8 -7.7) 08/21/23 05:26 Lymph # (Auto) 0.8 10^3/uL (0.8- 4.8) 08/21/23 05:26 [place] # (Auto) 1.2 10^3/uL (0.2- 0.9) H 08/21/23 05:26 Eos # (Auto) 0.0 10^3/uL (0.0- 0.8) 08/21/23 05:26 Baso # (Auto) 0.0 10^3/uL (0.0- 0.1) 08/21/23 05:26 Nucleated RBC % (a uto) 0 % 08/21/23 05:26 Nucleated RBCs # 0.0 /100WBC 08/21/23 05:26 ESR 35 mm/hr (0-10) H 08/20/23 19:50 Sodium 138 mmol/L (136-1 45) 08/21/23 05:26 Potassium 4.3 mmol/L (3.5-5 .1) 08/21/23 05:26 Chloride 106 mmol/L (98-10 7) 08/21/23 05:26 Carbon Dioxide 21 mmol/L (22-29) L 08/21/23 05:26 Anion Gap 15.3 (5-19) 08/21/23 05:26 BUN 21 mg/dL (8-23) 08/21/23 05:26 Creatinine 0.9 mg/dL (0.7-1. 2) 08/21/23 05:26 GFR Calculation Not Reportable 08/21/23 05:26 Glucose 86 mg/dL (65-115) 08/21/23 05:26 Calculated Osmolal ity 288 mOsm/kg (285- 295) 08/21/23 05:26 Lactic Acid 0.9 mmol/L (0.5-2 .2) 08/20/23 19:50 Calcium 8.2 mg/dL (8.5-10 .5) L 08/21/23 05:26 Phosphorus 2.2 mg/dL (2.5-4. 5) L 08/21/23 05:26 Magnesium 2.0 mg/dL (1.7-2. 3) 08/21/23 05:26 Iron 16 ug/dL (59-158) L 08/21/23 05:26 TIBC 180 mcg/dl 08/21/23 05:26 % Saturation 8.8 % (20-50) L 08/21/23 05:26 Unsat Iron Binding 164 ug/dL (112-34 7) 08/21/23 05:26 Total Bilirubin 0.6 mg/dL (0.15-1 .2) 08/21/23 05:26 AST 84 U/L (0-40) H 08/21/23 05:26 ALT 31 U/L (0-41) 08/21/23 05:26 Alkaline Phosphata se 77 U/L (40-130) 08/21/23 05:26 C-Reactive Protein 65.1 mg/L (0.0-4. 9) H 08/20/23 19:50 Total Protein 6.6 g/dL (6.6-8.7 ) 08/21/23 05:26 Albumin 3.4 g/dL (3.5-5.2 ) L 08/21/23 05:26 Globulin 3.2 g/dL (1.3-4.6 ) 08/21/23 05:26 Procalcitonin 0.14 ng/mL (0-0.5 ) 08/20/23 19:50 Urine Color Yellow (Yellow) 08/20/23 20:31 Urine Appearance Hazy (CLEAR) A 08/20/23 20: Urine pH 7 (5-7) 08/20/23 20:31 Ur Specific Gravit y 1.010 (1.005-1.0 30) 08/20/23 20: Urine Protein 1+ (Negative) H 08/20/23 20: Urine Glucose (UA) Norm (Normal) 08/20/23 20: Urine Ketones 1+ (Negative) H 08/20/23 20: Urine Blood 3+ (Negative) H 08/20/23 20: Urine Nitrate Negative (Negati ve) 08/20/23 20: Urine Bilirubin Neg (Negative) 08/20/23 20: Urine Urobilinogen 1 mg/dL (Negative ) H 08/20/23 20: Ur Leukocyte Janny ase 2+ (Negative) H 08/20/23 20: Urine RBC 0-4 /hpf (0-2) H 08/20/23 20: Urine WBC 15-25 /hpf (0-5) H 08/20/23 20: Ur Squamous Epith Cells 0-4 /hpf (0-5) H 08/20/23 20: Amorphous Sediment Not Reportable 08/20/23 20: Urine Bacteria 4+ /hpf (NONE) H 08/20/23 20:31 Nasal Influ A H1 2 009 PCR Not detected (NO T DETECT) 08/20/23 19:49 Adenovirus (PCR) Not detected (NO T DETECT) 08/20/23 19:49 C. pneumoniae DNA (PCR) Not detected (NO T DETECT) 08/20/23 19:49 Coronavirus 229E ( PCR) Not detected (NO T DETECT) 08/20/23 19:49 Human Metapneumovi r PCR Not detected (NO T DETECT) 08/20/23 19:49 Influenza A (H1) P CR Not detected (NO T DETECT) 08/20/23 19:49 Influenza A (H3) P CR Not detected (NO T DETECT) 08/20/23 19:49 Influenza Type A ( PCR) Not detected (NO T DETECT) 08/20/23 19:49 Influenza Type B ( PCR) Not detected (NO T DETECT) 08/20/23 19:49 M. pneumoniae (PCR ) Not detected (NO T DETECT) 08/20/23 19:49 Parainfluenza 1 (P CR) Not detected (NO T DETECT) 08/20/23 19:49 Parainfluenza 2 (P CR) Not detected (NO T DETECT) 08/20/23 19:49 Parainfluenza 3 (P CR) Not detected (NO T DETECT) 08/20/23 19:49 Parainfluenza 4 (P CR) Not detected (NO T DETECT) 08/20/23 19:49 RSV Type A (PCR) Not detected (NO T DETECT) 08/20/23 19:49 RSV Type B (PCR) Not detected (NO T DETECT) 08/20/23 19:49 Entero/Rhino (PCR) Not detected (NO T DETECT) 08/20/23 19:49 SARS-CoV-2 (PCR) Detected (NOT DE TECT) A 08/20/23 19:49 Plan: Appreciate culture history. History of UTI with Enterobacter in past. Follow-up blood culture and urine culture. For now continue with IV ceftriaxone. Add IV vancomycin. Continue with IV fluids. Switch diet to pur?ed diet as per his baseline. Also found to be having COVID-19. Most likely a mild disease. Given altered mental status for now we will start IV dexamethasone 6 mg daily. Restart other home chronic medications. Frequent reorientation. May need sitter. Hold off on olanzapine given altered mental status.
--- NOTE | 2023-08-21 16:23 | PC.PHAR ---
PHONED VANESSA SIDHU [facility] [phone] 3 TIMES AND DID NOT GET MED LIST FAXED OVER. WENT TO FLOOR AND FOUND AN ADEQUATE LIST WITH THE PATIENTS' CHART, TO USE FOR MED REC
[2023-08-22] VITALS: BP 105/57; PULSE 70; RESP 18; TEMP 37.1; O2SAT 93
[2023-08-22] MEDS: vancomycin 1,000 MG in sodium chloride 0.9% 250 ML 250 MG IV (00:06)
[2023-08-22] MEDS: sodium chloride 0.9% 1,000 ML 100 ML IV ×2 (00:07→15:50)
[2023-08-22 04:00] VITALS: BP 109/65; PULSE 78; RESP 16; TEMP 36.4; O2SAT 94
[2023-08-22] MEDS: enoxaparin 40 mg/0.4 mL Syringe SUBCUT (05:01)
[2023-08-22] MEDS: cefTRIAXone 1,000 MG in sodium chloride 0.9% (plus) 50 ML 100 MG IV (05:01)
[2023-08-22] MEDS: famotidine 20 mg/2 mL INJ IVP ×2 (05:29→17:46)
[2023-08-22 05:53] LABS: Hematocrit 28.6 % (37-53); Lymphocytes # 0.8 10^3/uL (0.8-4.8); Lymphocytes % 35.7 %; Mean Corpuscular HGB Conc 32.9 g/dL (30-55); Mean Corpuscular Hemoglobin 29.2 pg (27-33); Mean Corpuscular Volume 88.8 fl (82-101); Mean Platelet Volume 10.2 fL (7.4-10.4); Monocytes # 0.6 10^3/uL (0.2-0.9); Monocytes % 25.8 %; Neutrophils % 37.1 %; Nucleated Red Blood Cells % 0 %; Platelet Count 164 10^3/cmm (157-399); Red Blood Count 3.22 10^6/uL (3.85-5.65); Red Cell Distribution Width 13.2 % (12.1-15.1); White Blood Count 2.21 10^3/uL (3.29-11.43)
[2023-08-22 06:14] LABS: Estmated Average Glucose 103; Hemoglobin A1C 5.2 % (4.0-6.0)
[2023-08-22 06:19] LABS: Slide Review Slide Review Perform
[2023-08-22 06:20] LABS: Alanine Aminotransferase 25 U/L (0-41); Albumin Level 2.7 g/dL (3.5-5.2); Alkaline Phosphatase 59 U/L (40-130); Anion Gap 12.6 (5-19); Aspartate Amino Transferase 71 U/L (0-40); Blood Urea Nitrogen 20 mg/dL (8-23); Calcium 7.5 mg/dL (8.5-10.5); Carbon Dioxide 19 mmol/L (22-29); Chloride 109 mmol/L (98-107); Creatinine Clr Calc Pharmacy 76.7017; Glucose 96 mg/dL (65-115); Neutrophils # 0.82 10^3/uL (1.8-7.7); Osmolality Calculated 286 mOsm/kg (285-295); Potassium 3.6 mmol/L (3.5-5.1); Sodium 137 mmol/L (136-145); Total Bilirubin 0.3 mg/dL (0.15-1.2); Total Protein 5.7 g/dL (6.6-8.7)
[2023-08-22 06:21] LABS: Chol HDL Ratio 3.86 mg/dL (1.0-5.00); Cholesterol 112 mg/dL (0-200); HDL Cholesterol 29 mg/dL (60-100); LDL Cholesterol Calculated 71 mg/dL (50-129); Triglycerides 59 mg/dL (0-150); VLDL Cholestrol Calculation 12 mg/dL (0-30)
[2023-08-22 06:31] LABS: Folate Level 11.7 ng/mL (4.5-32.2)
[2023-08-22 08:00] VITALS: BP 110/68; PULSE 71; RESP 14; RESP 18; TEMP 36.6; O2SAT 97
[2023-08-22] MEDS: multivitamin therapeutic Tablet 1 TAB PO (09:51)
[2023-08-22] MEDS: lisinopril 10 mg Tablet PO (09:51)
[2023-08-22] MEDS: levothyroxine 100 mcg Tablet PO (09:51)
[2023-08-22] MEDS: amlodipine 10 mg Tablet PO (09:51)
[2023-08-22] MEDS: dexamethasone 10 mg/mL INJ 6 MG IVP (09:51)
[2023-08-22] MEDS: tamsulosin 0.4 mg Capsule PO ×2 (09:51→17:46)
[2023-08-22] MEDS: aspirin 81 mg EC Tablet PO (09:51)
[2023-08-22 11:22] VITALS: BP 116/69; PULSE 71; RESP 15; TEMP 36.4; O2SAT 97
[2023-08-22] MEDS: vancomycin 1,250 MG/250 ML PIGGYBACK 250 MG IV ×2 (12:03→23:09)
--- NOTE | 2023-08-22 15:44 | P.PN_ITS ---
Subjective Subjective: Admitting from nursing home facility due to fever of 103. Patient has been afebrile since arrival including in the ED. Patient is being treated for UTI. There is questionable altered mental status however patient seems to be at baseline orientation of 1-2. He also tested positive for COVID but denies respiratory symptoms. Patient is not usually on oxygen at home he was on 1 L upon entering the room. states that while the patient was improved he was not yet ready to return home after 3 weeks at SNF. Patient denies complaints to me. Denies pain denies shortness of breath denies suprapubic pain or pain with urination. Vitals/I&O/Wt Last Vital Signs Temp 97.5 F L 08/22/23 11:22 Pulse 71 08/22/23 11:22 Resp 15 08/22/23 11:22 BP 116/69 08/22/23 11:22 Pulse Ox 97 08/22/23 11:22 O2 Del Method Nasal Cannula 08/22/23 11:22 O2 Flow Rate 1 08/22/23 08:00 08/22/23 08/22/23 08/22/23 06:59 14:59 22:59 Intake Total 1176.667 / 3929.167 370 / 370 Balance 1176.667 / 3929.167 370 / 370 Weight last 48 hrs Weight 81.647 kg Physical Exam Narrative: Elderly male in no acute distress Patient is alert to place and himself and . Nonfocal exam Heart regular normal S1-2 without murmurs clicks gallops or rubs Lungs diminished throughout no wheezes rales or rhonchi Abdomen: Soft nontender nondistended positive bowel sounds Extremities no clubbing cyanosis or edema Data 08/22/23 05:01 08/22/23 05:01 Micro: Microbiology 08/20/23 20:31 Urine Culture - Final Urine,Clean Catch 08/20/23 19:50 Blood Culture - Preliminary Blood NEGATIVE TO DATE 08/20/23 19:50 Blood Culture - Preliminary Blood NEGATIVE TO DATE A&P Assessment and plan (1) Altered mental status: Currently at baseline (2) UTI (urinary tract infection): Broad-spectrum antibiotic await culture and sensitivity (3) COVID-19: On IV dexamethasone patient appears to be is asymptomatic however (4) Physical deconditioning: Patient was at nursing home facility for physical conditioning. Plan Continue current hospital level care. Awaiting culture and sensitivity of urinalysis and culture. Attestations Medical Necessity Statement*: Anticipate another midnight stay due to identification and sensitivities of urinary tract infection Coding Level of Care Code Acute Code for Chg Fwd Diagnoses Altered mental status R41.82 UTI (urinary tract infection) N39.0 COVID-19 U07.1 Physical deconditioning R53.81
[2023-08-22 16:00] VITALS: BP 107/69; PULSE 68; RESP 18; TEMP 36.4; O2SAT 94
[2023-08-22 20:00] VITALS: BP 109/66; PULSE 68; RESP 18; RESP 21; TEMP 36.3; O2SAT 94
[2023-08-23] VITALS (9 sets, daily range): BP systolic 115–147; BP diastolic 66–80; PULSE 59–75; RESP 16–20; TEMP 36.1–36.6; O2SAT 91–95
--- NOTE | 2023-08-23 01:10 | PC.NURSE ---
pt care this nurse took over care of pt at this time.
[2023-08-23] MEDS: sodium chloride 0.9% 1,000 ML 100 ML IV (05:09)
[2023-08-23] MEDS: cefTRIAXone 1,000 MG in sodium chloride 0.9% (plus) 50 ML 100 MG IV (05:10)
[2023-08-23] MEDS: famotidine 20 mg/2 mL INJ IVP (05:10)
[2023-08-23] MEDS: enoxaparin 40 mg/0.4 mL Syringe SUBCUT (05:11)
[2023-08-23] MEDS: dexamethasone 10 mg/mL INJ 6 MG IVP (10:10)
[2023-08-23] MEDS: lisinopril 10 mg Tablet PO (10:10)
[2023-08-23] MEDS: aspirin 81 mg EC Tablet PO (10:11)
[2023-08-23] MEDS: amlodipine 10 mg Tablet PO (10:11)
[2023-08-23] MEDS: tamsulosin 0.4 mg Capsule PO ×2 (10:11→17:58)
[2023-08-23] MEDS: vancomycin 1,250 MG/250 ML PIGGYBACK 250 MG IV (10:11)
[2023-08-23] MEDS: multivitamin therapeutic Tablet 1 TAB PO (10:11)
[2023-08-23] MEDS: levothyroxine 100 mcg Tablet PO (10:24)
--- NOTE | 2023-08-23 15:50 | PM.DCS ---
Discharge Providers Date of Admission: 08/21/23 01:42 Date of Discharge: August 23, 2023 Attending Provider at Admission: Bridget Ingram MD Attending Provider at Discharge: Lee Calderon DO Primary Care Provider: Jaymie Urbano Diagnoses at Discharge Discharge Diagnosis (1) Altered mental status: Status: Acute (2) UTI (urinary tract infection): Status: Acute (3) COVID-19: Status: Acute (4) Physical deconditioning: Status: Chronic Reason for Visit Reason for Visit: FEVER Brief History: [facility] to fever of 103, altered mental status and suspected UTI. Hospital Course Hospital Course Patient has been afebrile since arrival including in the ED. also per our nursing staff patient is at baseline mentation. confirms this. Patient is being treated for UTI.? There is questionable altered mental status however patient seems to be at baseline orientation of 1-2.? He also tested positive for COVID but denies respiratory symptoms.? Patient is not usually on oxygen at home he was on 1 L upon entering the room.? states that while the patient was improved he was not yet ready to return home after 3 weeks at SNF. Patient denies complaints to me.? Denies pain denies shortness of breath denies suprapubic pain or pain with urination. Urine cultures negative. There is no source of infection. Per and staff patient is at baseline. Patient will return back will complete a course of antibiotics and dexamethasone. Physical Exam Narrative: Elderly male in no acute distress Patient is alert to place and himself and . Nonfocal exam Heart regular normal S1-2 without murmurs clicks gallops or rubs Lungs diminished throughout no wheezes rales or rhonchi Abdomen: Soft nontender nondistended positive bowel sounds Extremities no clubbing cyanosis or edema Discharge Data Studies Completed and Pending Completed Studies During Hospitalization Category Date Time Status XR chest 1V 65079 Stat Exams 08/20/23 19:22 Completed Pending at discharge Category Date Time Status Blood Culture Stat Lab 08/20/23 19:50 Results MAG [Magnesium] AM LABS Lab 08/24/23 04:00 Ordered Vancomycin Trough Timed Lab 08/23/23 22:00 Ordered Radiology Impressions Chest X-Ray 08/20/23 19:22 IMPRESSION: No acute findings. Laboratory Results WBC 2.21 10^3/uL (3.29-11.43) L 08/22/23 05:01 RBC 3.22 10^6/uL (3.85-5.65) L 08/22/23 05:01 Hgb 9.40 g/dL (11.27-16.99) L 08/22/23 05:01 Hct 28.6 % (37-53) L 08/22/23 05:01 MCV 88.8 fl (82-101) 08/22/23 05:01 MCH 29.2 pg (27-33) 08/22/23 05:01 MCHC 32.9 g/dL (30-55) 08/22/23 05:01 RDW 13.2 % (12.1-15.1) 08/22/23 05:01 Plt Count 164 10^3/cmm (157-399) 08/22/23 05:01 MPV 10.2 fL (7.4-10.4) 08/22/23 05:01 Neut % (Auto) 37.1 % 08/22/23 05:01 Lymph % (Auto) 35.7 % 08/22/23 05:01 [place] % (Auto) 25.8 % 08/22/23 05:01 Eos % (Auto) 0.0 % 08/22/23 05:01 Baso % (Auto) 0.0 % 08/22/23 05:01 Neut # (Auto) 0.82 10^3/uL (1.8-7.7) L* 08/22/23 05:01 Lymph # (Auto) 0.8 10^3/uL (0.8-4.8) 08/22/23 05:01 [place] # (Auto) 0.6 10^3/uL (0.2-0.9) 08/22/23 05:01 Eos # (Auto) 0.0 10^3/uL (0.0-0.8) 08/22/23 05:01 Baso # (Auto) 0.0 10^3/uL (0.0-0.1) 08/22/23 05:01 Nucleated RBC % (auto) 0 % 08/22/23 05:01 Nucleated RBCs # 0.0 /100WBC 08/22/23 05:01 ESR 35 mm/hr (0-10) H 08/20/23 19:50 Sodium 137 mmol/L (136-145) 08/22/23 05:01 Potassium 3.6 mmol/L (3.5-5.1) 08/22/23 05:01 Chloride 109 mmol/L (98-107) H 08/22/23 05:01 Carbon Dioxide 19 mmol/L (22-29) L 08/22/23 05:01 Anion Gap 12.6 (5-19) 08/22/23 05:01 BUN 20 mg/dL (8-23) 08/22/23 05:01 Creatinine 0.6 mg/dL (0.7-1.2) L 08/22/23 05:01 GFR Calculation Not Reportable 08/22/23 05:01 Glucose 96 mg/dL (65-115) 08/22/23 05:01 Estimat Average Glucose 103 08/22/23 05:01 Hemoglobin A1c 5.2 % (4.0-6.0) 08/22/23 05:01 Calculated Osmolality 286 mOsm/kg (285-295) 08/22/23 05:01 Lactic Acid 0.9 mmol/L (0.5-2.2) 08/20/23 19:50 Calcium 7.5 mg/dL (8.5-10.5) L 08/22/23 05:01 Phosphorus 2.2 mg/dL (2.5-4.5) L 08/21/23 05:26 Magnesium 2.0 mg/dL (1.7-2.3) 08/23/23 05:10 Iron 16 ug/dL (59-158) L 08/21/23 05:26 TIBC 180 mcg/dl 08/21/23 05:26 % Saturation 8.8 % (20-50) L 08/21/23 05:26 Unsat Iron Binding 164 ug/dL (112-347) 08/21/23 05:26 Total Bilirubin 0.3 mg/dL (0.15-1.2) 08/22/23 05:01 AST 71 U/L (0-40) H 08/22/23 05:01 ALT 25 U/L (0-41) 08/22/23 05:01 Alkaline Phosphatase 59 U/L (40-130) 08/22/23 05:01 C-Reactive Protein 65.1 mg/L (0.0-4.9) H 08/20/23 19:50 Total Protein 5.7 g/dL (6.6-8.7) L 08/22/23 05:01 Albumin 2.7 g/dL (3.5-5.2) L 08/22/23 05:01 Globulin 3.0 g/dL (1.3-4.6) 08/22/23 05:01 Triglycerides 59 mg/dL (0-150) 08/22/23 05:01 Cholesterol 112 mg/dL (0-200) 08/22/23 05:01 LDL Cholesterol, Calc 71 mg/dL (50-129) 08/22/23 05:01 Total VLDL Cholesterol 12 mg/dL (0-30) 08/22/23 05:01 HDL Cholesterol 29 mg/dL (60-100) L 08/22/23 05:01 Cholesterol/HDL Ratio 3.86 mg/dL (1.0-5.00) 08/22/23 05:01 Folate 11.7 ng/mL (4.5-32.2) 08/22/23 05:01 Procalcitonin 0.14 ng/mL (0-0.5) 08/20/23 19:50 Urine Color Yellow (Yellow) 08/20/23 20:31 Urine Appearance Hazy (CLEAR) A 08/20/23 20:31 Urine pH 7 (5-7) 08/20/23 20:31 Ur Specific [place] 1.010 (1.005-1.030) 08/20/23 20:31 Urine Protein 1+ (Negative) H 08/20/23 20:31 Urine Glucose (UA) Norm (Normal) 08/20/23 20:31 Urine Ketones 1+ (Negative) H 08/20/23 20:31 Urine Blood 3+ (Negative) H 08/20/23 20: Urine Nitrate Negative (Negative) 08/20/23 20: Urine Bilirubin Neg (Negative) 08/20/23 20: Urine Urobilinogen 1 mg/dL (Negative) H 08/20/23 20:31 Ur Leukocyte Esterase 2+ (Negative) H 08/20/23 20:31 Urine RBC 0-4 /hpf (0-2) H 08/20/23 20:31 Urine WBC 15-25 /hpf (0-5) H 08/20/23 20:31 Ur Squamous Epith Cells 0-4 /hpf (0-5) H 08/20/23 20:31 Amorphous Sediment Not Reportable 08/20/23 20:31 Urine Bacteria 4+ /hpf (NONE) H 08/20/23 20:31 Nasal Influ A H1 2009 PCR Not detected (NOT DETECT) 08/20/23 19:49 Adenovirus (PCR) Not detected (NOT DETECT) 08/20/23 19:49 C. pneumoniae DNA (PCR) Not detected (NOT DETECT) 08/20/23 19:49 Coronavirus 229E (PCR) Not detected (NOT DETECT) 08/20/23 19:49 Human Metapneumovir PCR Not detected (NOT DETECT) 08/20/23 19:49 Influenza A (H1) PCR Not detected (NOT DETECT) 08/20/23 19:49 Influenza A (H3) PCR Not detected (NOT DETECT) 08/20/23 19:49 Influenza Type A (PCR) Not detected (NOT DETECT) 08/20/23 19:49 Influenza Type B (PCR) Not detected (NOT DETECT) 08/20/23 19:49 M. pneumoniae (PCR) Not detected (NOT DETECT) 08/20/23 19:49 Parainfluenza 1 (PCR) Not detected (NOT DETECT) 08/20/23 19:49 Parainfluenza 2 (PCR) Not detected (NOT DETECT) 08/20/23 19:49 Parainfluenza 3 (PCR) Not detected (NOT DETECT) 08/20/23 19:49 Parainfluenza 4 (PCR) Not detected (NOT DETECT) 08/20/23 19:49 RSV Type A (PCR) Not detected (NOT DETECT) 08/20/23 19:49 RSV Type B (PCR) Not detected (NOT DETECT) 08/20/23 19:49 Entero/Rhino (PCR) Not detected (NOT DETECT) 08/20/23 19:49 SARS-CoV-2 (PCR) Detected (NOT DETECT) A 08/20/23 19:49 Vitals Last Vital Signs Temp 97.5 F L 08/23/23 11:51 Pulse 63 08/23/23 11:51 Resp 19 H 08/23/23 11:51 BP 115/71 08/23/23 11:51 Pulse Ox 95 08/23/23 11:51 O2 Del Method Room Air 10/24/23 11:51 O2 Flow Rate 1 08/22/23 20:00 Discharge Plan Discharge Condition: Stable Prescriptions: New cefdinir 300 mg capsule 300 mg PO BID 5 Days Qty: 10 0RF dexamethasone 6 mg tablet 6 mg PO DAILY Qty: 5 0RF Continued tamsulosin 0.4 mg capsule 0.4 mg PO BID acetaminophen 325 mg Tablet 650 mg PO Q6H PRN (Reason: Mild/Mod Pain Or Temp >/= 101) Qty: 30 0RF levothyroxine 100 mcg tablet 100 mcg PO DAILY lisinopril 10 mg tablet 10 mg PO DAILY Qty: 60 1RF Hold Instructions: Resume on 08/18/23. albuterol sulfate 90 mcg/actuation HFA aerosol inhaler 1 inh inhalation Q8H PRN (Reason: shortness of breath or wheezing) Qty: 8.5 2RF aspirin 81 mg Tablet,Delayed Release (Dr/Ec) 81 mg PO DAILY neomycin-polymyxin B-dexameth 3.5 mg/g-10,000 unit/g-0.1 % ointment 1 applic ophthalmic (eye) TID Rx Instructions: left lower lid amlodipine 5 mg Tablet 10 mg PO DAILY 30 Days Qty: 30 0RF trazodone 50 mg tablet 100 mg PO BEDTIME Milk of Magnesia 400 mg/5 mL Suspension See Rx Instructions .ROUTE .COMPLEX PRN (Reason: Constipation) Rx Instructions: 30 mL orally as needed on 3rd day if no bm. Dulcolax (bisacodyl) 10 mg Suppository See Rx Instructions .ROUTE .COMPLEX PRN (Reason: Constipation) Rx Instructions: 10 mg rectally after milk of magnesia if no bm if tablets are refused magnesium citrate Solution See Rx Instructions .ROUTE .COMPLEX PRN (Reason: Constipation) Rx Instructions: 295 mL (10 ounces) orally after dulcolax if no bm hydroxyzine HCl 25 mg tablet 25 mg PO DAILY Dulcolax (bisacodyl) 5 mg Tablet,Delayed Release (Dr/Ec) See Rx Instructions .ROUTE .COMPLEX PRN (Reason: Constipation) Rx Instructions: 20 mg orally as needed after milk of magnesia if no bm Mylanta 200-200-20 mg/5 mL Suspension 30 ml PO 5XD PRN (Reason: Indigestion) Rx Instructions: administer between meals and at bedtime olanzapine 5 mg tablet,disintegrating 5 mg PO BID PRN (Reason: AGGITATION) Discharge Orders: Discharge Order (Routine); Ordered 08/23/23 Ordered By: Lee Calderon Referrals: Jaymie Urbano [Primary Care Provider] - Discharge Diet: Usual diet Discharge Activity: Resume usual activity Patient Instructions: Opioid Safety Discharge Attestations Time Spent in Discharge Care*: less than 30 min Quality Metrics Clinical Quality Measures [ No reported AMI, CVA or VTE this stay] Coding Level of Care Code Acute Code for Chg Fwd Diagnoses Altered mental status R41.82 UTI (urinary tract infection) N39.0 COVID-19 U07.1 Physical deconditioning R53.81
--- NOTE | 2023-08-23 16:02 | PC.NURSE ---
pt pulled out iv, infiltrated with ns running. notified, order to d/c iv received. iv d/c.
--- NOTE | 2023-08-23 17:04 | P.PN_ITS ---
Subjective Subjective: Admitting from longterm facility due to fever of 103. Patient has been afebrile since arrival including in the ED. Patient is being treated for UTI. There is questionable altered mental status however patient seems to be at baseline orientation of 1-2. He also tested positive for COVID but denies respiratory symptoms. Patient is not usually on oxygen at home he was on 1 L upon entering the room. states that while the patient was improved he was not yet ready to return home after 3 weeks at SNF. Patient denies complaints to me. Denies pain denies shortness of breath denies suprapubic pain or pain with urination. 08/23/2023: Urine culture is negative. There is no other source of infection. To complete complete will continue short course of antibiotic therapy. Patient mistakenly pulled his IV will change to oral antibiotics. Patient is ready for discharge when insurance company authorizes return to SNF. agreeable Vitals/I&O/Wt Last Vital Signs Temp 97.5 F L 08/23/23 16:00 Pulse 63 08/23/23 16:00 Resp 19 H 08/23/23 16:00 BP 116/80 08/23/23 16:00 Pulse Ox 95 08/23/23 16:00 O2 Del Method Room Air 08/23/23 16:00 O2 Flow Rate 1 08/22/23 20:00 08/23/23 08/23/23 08/23/23 06:59 14:59 22:59 Intake Total 1250 / 2860 540 / 540 Balance 1250 / 2860 540 / 540 Physical Exam Narrative: Elderly male in no acute distress Patient is alert to place and himself and . 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 (3) COVID-19: Will change to oral dexamethasone (4) Physical deconditioning: Patient was at longterm facility for physical conditioning. Plan Stable for discharge when authorization from insurance obtained. Attestations Medical Necessity Statement*: Patient is stable for discharge awaiting insurance authorization for return to [facility] level care Coding Level of Care Code Acute Code for Chg Fwd Diagnoses Altered mental status R41.82 UTI (urinary tract infection) N39.0 COVID-19 U07.1 Physical deconditioning R53.81
[2023-08-23] MEDS: cefdinir 300 MG CAPSULE PO (17:58)
[2023-08-24] MEDS: enoxaparin 40 mg/0.4 mL Syringe SUBCUT (03:43)
[2023-08-24 04:18] VITALS: BP 150/77; PULSE 64; RESP 15; TEMP 36.5; O2SAT 92
[2023-08-24 06:34] LABS: Magnesium 2.1 mg/dL (1.7-2.3)
[2023-08-24 08:00] VITALS: BP 131/75; PULSE 61; PULSE 67; RESP 18; TEMP 36.4; O2SAT 95
[2023-08-24] MEDS: cefdinir 300 MG CAPSULE PO (08:35)
[2023-08-24] MEDS: aspirin 81 mg EC Tablet PO (08:35)
[2023-08-24] MEDS: dexamethasone 4 mg Tablet 6 MG PO (08:36)
[2023-08-24] MEDS: tamsulosin 0.4 mg Capsule PO (08:36)
[2023-08-24] MEDS: lisinopril 10 mg Tablet PO (08:36)
[2023-08-24] MEDS: amlodipine 10 mg Tablet PO (08:36)
[2023-08-24] MEDS: levothyroxine 100 mcg Tablet PO (08:36)
[2023-08-24] MEDS: multivitamin therapeutic Tablet 1 TAB PO (08:36)
--- NOTE | 2023-08-24 13:27 | PC.NURSE ---
This nurse called report to [facility] and spoke to Leah. All questions were addressed and answered and oncoming nurse was informed of patient's current status.
[2023-08-24 13:44] VITALS: BP 131/75; PULSE 67; RESP 18; TEMP 36.4; O2SAT 95
== END 2023-08-24 13:45 | disposition skilled nursing facility (03) | DRG 179 ==
LOC: ER 08-21 00:59 → MEDSURG 08-21 01:16
PROVIDERS: Student in an Organized Health Care Education/Training Program; Admitting Provider Internal Medicine; Emergency Provider Physician Assistant; PCP Nurse Practitioner Family; Visit Provider Internal Medicine
DX: U07.1 COVID-19 (principal); Z75.1 Person awaiting admission to adequate facility elsewhere; Z79.82 Long term (current) use of aspirin; Z79.891 Long term (current) use of opiate analgesic; I10 Essential (primary) hypertension; N40.0 Benign prostatic hyperplasia without lower urinary tract symptoms; F41.9 Anxiety disorder, unspecified; F03.90 Unspecified dementia, unspecified severity, without behavioral disturbance, psychotic disturbance, mood disturbance, and anxiety; E03.9 Hypothyroidism, unspecified; Z85.828 Personal history of other malignant neoplasm of skin; F17.220 Nicotine dependence, chewing tobacco, uncomplicated; Z87.440 Personal history of urinary (tract) infections
CPT/HCPCS: 36415; 71045; 80053; 80061; 81001; 82746; 83036; 83540; 83550; 83605; 83735; 84100; 84145; 85025; 85651; 86140; 87040; 87086; 87486; 87581; 87633; 93005; 96372; 96374; 96375; 99285; J0131; J0696; J0744; J1100; J1650; J3370; J3490; J7030; J7050; J8540